=== PATIENT | male | born 1965 | race Hispanic/Latino ===

== ENCOUNTER 2018-09-05 15:50 | Inpatient (IN) | payer OTHER ==
[~2018-09-05] VITALS: Ht 185.4 cm; Wt 112.7 kg
[2018-09-05] MEDS ORDERED: ACETAMINOPHEN 325 MG TAB ONE (16:31)
--- OUTSIDE RECORDS SUMMARY | 2018-09-05 16:34 | XMS REPORT | Clinical Summary ---
Author Author [facility] [employer] [facility] [employer] Address Unknown Phone Unavailable Care Team Providers Care Assistant Pastry Chef Name Role Phone Asked, No Pcp PCP Unavailable Allergies No Known Allergies Medications End Date Status Medication Sig Dispensed Refills Start Date Active losartan-hydrochlorothiaz 0 pham (HYZAAR) 100-12.5 mg 8 per tablet Active lovastatin (MEVACOR) 40 0 MG tablet 8 Active glyBURIDE (DIABETA) 5 MG Take 5 mg by 0 tablet mouth 2 (two) times a day with meals. 04/21/2018 acetaminophen-codeine Take 1 tablet 30 tablet 0 (TYLENOL WITH CODEINE #3) by mouth 8 300-30 mg per tablet every 6 (six) hours as needed for moderate pain for up to 30 days. 04/22/2018 clopidogrel (PLAVIX) 75 Take 1 tablet 30 tablet 2 mg tablet (75 mg total) 8 by mouth daily for 30 days. 04/22/2018 nicotine (NICODERM CQ) 21 Place 1 patch 30 patch 0 mg/24 hr on the skin 8 daily for 30 days. 04/22/2018 amLODIPine (NORVASC) 10 Take 1 tablet 30 tablet 2 mg tablet (10 mg total) 8 by mouth daily for 30 days. Active Problems Problem Noted Date Peripheral vascular disease 03/10/2018 Overview: Added automatically from request for surgery [id number] Atherosclerosis of coquille artery of left lower extremity with intermittent 03/10/2018 claudication Overview: Added automatically from request for surgery [id number] Encounters Care Team Description Date Type Specialty Prateek Walker MD 03/21/[address] Surgery Event [address] Smiley MD LEFT ANGIOGRAM, ANGIOPLASTY, LEFT STENTING OF SFA, REMOVAL OF LYSIS CATHETER 03/21/[address] Smiley MD LEFT LOWER EXTREMITY ANGIOGram w/ lysis catheter insertion, balloon angioplasty of the left SFA 03/20/2018 Surgery General Surgery Ej Saleh MD 03/20/[address] Surgery Event Lane Smiley MD Tang, Hsiao Chiang, MD Peripheral vascular disease (Primary Dx); Atherosclerosis of coquille artery of left lower extremity with intermittent claudication; Peripheral vascular disorder 03/20/2018 [facility] General Internal Medicine - Encounter 03/22/2018 Lane Smiley MD 03/19/[address] Encounter [address] Smiley MD 03/19/2018 Pre-Admit Pre-Admission Testing Testing Appointment Kelby Mendez 03/19/2018 Orders Only Radiology Smitha Cuellar MA Atherosclerosis of coquille artery of left lower extremity with intermittent claudication (Primary Dx); Peripheral vascular disorder 03/10/2018 Prep for Cardiovascular Surgery Smitha Cuellar MA Atherosclerosis of coquille artery of left lower extremity with intermittent claudication (Primary Dx); Peripheral vascular disease 03/10/2018 Orders Only Cardiovascular after 09/04/2017 Family History Medical History Relation Name Comments Cancer Mother Heart disease Mother Hypertension Mother Relation Name Status Comments Father Mother Social History Date Tobacco Use Types Packs/Day Years Used Current Every Day Smoker Cigarettes 1.5 30 Smokeless Tobacco: Never Used Tobacco Cessation: Ready to Quit: No; Counseling Given: Yes Alcohol Use Drinks/Week oz/Week Comments No Sex Assigned at Date Recorded Not on file Industry Job Start Date Occupation Not on file Not on file Not on file Travel End Travel History Travel Start No recent travel history available. Last Filed Vital Signs Time Taken Vital Sign Reading 03/22/2018 8:07 AM CDT Blood Pressure 156/88 03/22/2018 8:07 AM CDT Pulse 60 03/22/2018 8:07 AM CDT Temperature 37.1 C (98.7 F) 03/22/2018 8:07 AM CDT Respiratory Rate 21 03/22/2018 8:07 AM CDT Oxygen Saturation 95% - Inhaled Oxygen - Concentration 03/20/2018 11:25 AM CDT Weight 111 kg (244 lb 6.4 oz) 03/20/2018 11:25 AM CDT Height 180.3 cm (5' 11") 03/20/2018 11:25 AM CDT Body Mass Index 34.09 Plan of Treatment Health Maintenance Due Date Last Done Comments COLON CANCER SCREENING 2016 SHINGLES VACCINES (#1) 2016 INFLUENZA VACCINE 01/29/2018 Implants Device Identifier Shelf Expiration Date Model / Serial / Lot Implanted Type Area Manufactur er 01/29/2020 [id number] / / [id number] Device Vasclr Clsr Baln Cath 10ml Cardiovasc Right: Groin CARDINAL Lkng Syr 6fr 7fr Mynxgrip - [facility] [id number] Implants Implanted: Qty: 1 on 03/21/[address] Smiley MD 06/18/2019 [id number] / / [id number] Stent Zil[employer] Eluted 6fr 6 X Surgical Left: Leg COOK 120mm .035in - [id number] Stents PERIPHERAL Implanted: Qty: 1 on 03/21/[address] Correa MD ON 04/10/2019 [id number] / / [id number] Stent [employer] Eluted 6fr 7 X Surgical Left: Leg COOK 120mm .035in - [id number] Stents PERIPHERAL Implanted: Qty: 1 on 03/21/[address] Correa MD ON 04/10/2019 [id number] / / [id number] Stent [employer] Eluted 6fr 7 X Surgical Left: Leg COOK 120mm .035in - [id number] Stents PERIPHERAL Implanted: Qty: 1 on 03/21/[address] Correa MD ON 05/13/2019 [id number] / / [id number] Stent [employer] Eluted 6fr 7 X Surgical Left: Leg COOK 120mm .035in - [id number] Stents PERIPHERAL Implanted: Qty: 1 on 03/21/[address] Correa MD ON Procedures Comments Procedure Name Priority Date/Time Associated Diagnosis POC GLUCOSE Routine 03/22/2018 11:29 AM CDT POC GLUCOSE Routine 03/22/2018 6:18 AM CDT ESTIMATED GFR Timed 03/22/2018 5:17 AM CDT PHOSPHORUS LEVEL Timed 03/22/2018 5:17 AM CDT MAGNESIUM LEVEL Timed 03/22/2018 5:17 AM CDT HC COMPLETE BLD COUNT Timed 03/22/2018 W/AUTO DIFF 5:17 AM CDT BASIC METABOLIC PANEL Timed 03/22/2018 5:17 AM CDT HEMOGLOBIN A1C Routine 03/22/2018 5:17 AM CDT POC GLUCOSE Routine 03/21/2018 8:20 PM CDT POC GLUCOSE Routine 03/21/2018 4:40 PM CDT CV HYBRID OR FLUOROSCOPY STAT 03/21/2018 12:54 PM CDT POC GLUCOSE Routine 03/21/2018 11:21 AM CDT POC GLUCOSE Routine 03/21/2018 7:29 AM CDT PHOSPHORUS LEVEL Timed 03/21/2018 4:47 AM CDT MAGNESIUM LEVEL Timed 03/21/2018 4:47 AM CDT FIBRINOGEN Timed 03/21/2018 4:47 AM CDT ESTIMATED GFR Timed 03/21/2018 4:47 AM CDT PARTIAL THROMBOPLASTIN Timed 03/21/2018 TIME (PTT) 4:47 AM CDT BASIC METABOLIC PANEL Timed 03/21/2018 4:47 AM CDT HC COMPLETE BLD COUNT Timed 03/21/2018 W/AUTO DIFF 4:47 AM CDT URINALYSIS SCREEN AND Routine 03/20/2018 MICROSCOPY, WITH REFLEX 10:20 PM CDT TO CULTURE SODIUM LEVEL, URINE, Routine 03/20/2018 RANDOM 10:20 PM CDT POTASSIUM, URINE, RANDOM Routine 03/20/2018 10:20 PM CDT PROTEIN, URINE, RANDOM Routine 03/20/2018 10:20 PM CDT CREATININE LEVEL, URINE, Routine 03/20/2018 RANDOM 10:20 PM CDT GRAM STAIN Routine 03/20/2018 10:20 PM CDT URINE CULTURE Routine 03/20/2018 10:20 PM CDT POC GLUCOSE Routine 03/20/2018 8:26 PM CDT ESTIMATED GFR Timed 03/20/2018 8:10 PM CDT BASIC METABOLIC PANEL Timed 03/20/2018 8:10 PM CDT FIBRINOGEN Timed 03/20/2018 8:10 PM CDT VITAMIN D 25 HYDROXY Routine 03/20/2018 LEVEL 4:54 PM CDT PARATHYROID HORMONE Routine 03/20/2018 4:54 PM CDT URIC ACID LEVEL Routine 03/20/2018 4:54 PM CDT POC GLUCOSE Routine 03/20/2018 2:53 PM CDT ANESTHESIA INTUBATION Routine 03/20/2018 12:53 PM CDT Procedure Note - Juma Valderrama MD - 03/20/2018 12:53 PM CDT Airway Performed by: JUMA VALDERRAMA Authorized by: JUMA VALDERRAMA Final Airway Type: Mask PREPARE CRYOPRECIPITATE Timed 03/20/2018 12:21 PM CDT TYPE AND SCREEN Timed 03/20/2018 12:21 PM CDT FIBRINOGEN Timed 03/20/2018 12:21 PM CDT POC GLUCOSE Routine 03/20/2018 12:14 PM CDT CV HYBRID OR FLUOROSCOPY Routine 03/20/2018 11:57 AM CDT XR CHEST 2 VW Routine 03/19/2018 4:19 PM CDT ECG 12-LEAD Routine 03/19/2018 3:49 PM CDT ESTIMATED GFR Routine 03/19/2018 3:30 PM CDT PROTHROMBIN TIME WITH INR Routine 03/19/2018 3:30 PM CDT PARTIAL THROMBOPLASTIN Routine 03/19/2018 TIME (PTT) 3:30 PM CDT HC COMPLETE BLD COUNT Routine 03/19/2018 W/AUTO DIFF 3:30 PM CDT BASIC METABOLIC PANEL Routine 03/19/2018 3:30 PM CDT after 09/04/2017 Results * POC glucose (03/22/2018 11:29 AM CDT) Only the most recent of 9 results within the time period is included. POC glucose 208 (H) 65 - 100 mg/dL [facility] DEPARTMENT OF Comment: PATHOLOGY AND Meter ID: [id number] [facility] Associate Creative Director: Christie Carrera Performing Organization Address City/[facility] Centercode Phone Number [facility] DEPARTMENT OF [address] [place] [address] PATHOLOGY AND [facility] * Estimated GFR (03/22/2018 5:17 AM CDT) Only the most recent of 4 results within the time period is included. Estimated GFR 49 (A) mL/min/1.73 m2 [facility] DEPARTMENT OF Comment: PATHOLOGY AND [employer] GENOMIC MEDICINE rpretation G1 >=90 Normal or high G2 60-89Mildly decreased [id number] Mildly to moderately decreased [id number] Moderately to severely decreased G4 15-29Severely decreased G5 <15Kidney failure The eGFR was calculated using the Chronic Kidney Disease Epidemiology Collaboration (CKD-EPI) equation. Interpretation is based on recommendations of the National Kidney Foundation-Kidney Disease Outcomes Quality Initiative (NKF-KDOQI) published in 2014. Specimen Plasma specimen Performing Organization Address City/State/Zipcode Phone Number [facility] DEPARTMENT OF [address] [place] [address] PATHOLOGY AND GENOMIC MEDICINE * CBC with platelet and differential (03/22/2018 5:17 AM CDT) Only the most recent of 3 results within the time period is included. WBC 10.2 4.2 - 11.0 k/uL [facility] DEPARTMENT OF PATHOLOGY AND GENOMIC MEDICINE RBC 5.20 4.04 - 5.86 m/uL [facility] DEPARTMENT OF PATHOLOGY AND GENOMIC MEDICINE HGB 14.8 13.0 - 17.3 g/dL [facility] DEPARTMENT OF PATHOLOGY AND GENOMIC MEDICINE HCT 48.3 (H) 34.0 - 45.0 % [facility] DEPARTMENT OF PATHOLOGY AND GENOMIC MEDICINE MCV 92.9 80.0 - 98.0 fL [facility] DEPARTMENT OF PATHOLOGY AND GENOMIC MEDICINE MCH 28.5 27.0 - 34.0 pg [facility] DEPARTMENT OF PATHOLOGY AND GENOMIC MEDICINE MCHC 30.6 (L) 31.5 - 36.5 g/dL [facility] DEPARTMENT OF PATHOLOGY AND GENOMIC MEDICINE RDW - SD 47.2 37.0 - 51.0 fL [facility] OF PATHOLOGY AND GENOMIC MEDICINE MPV 11.7 (H) 7.4 - 10.4 fL [facility] DEPARTMENT OF PATHOLOGY AND GENOMIC MEDICINE Platelet count 155 150 - 400 k/uL [facility] DEPARTMENT OF PATHOLOGY AND GENOMIC MEDICINE Nucleated RBC 0.00 /100 WBC [facility] DEPARTMENT OF PATHOLOGY AND GENOMIC MEDICINE Neutrophils 80.1 (H) 36.0 - 66.0 % [facility] DEPARTMENT OF PATHOLOGY AND GENOMIC MEDICINE Lymphocytes 8.8 (L) 24.0 - 44.0 % [facility] DEPARTMENT OF PATHOLOGY AND GENOMIC MEDICINE Monocytes 7.8 (H) 0.0 - 6.0 % [facility] DEPARTMENT OF PATHOLOGY AND GENOMIC MEDICINE Eosinophils 2.0 0.0 - 6.0 % [facility] DEPARTMENT OF PATHOLOGY AND GENOMIC MEDICINE Basophils 0.5 0.0 - 1.2 % [facility] DEPARTMENT PATHOLOGY AND GENOMIC MEDICINE Immature granulocytes 0.8 0.0 - 1.0 % [facility] DEPARTMENT PATHOLOGY AND GENOMIC MEDICINE Specimen Blood Performing Organization Address City/[facility]/Zipcode Phone Number [facility] [address] [place] [address] PATHOLOGY AND GENOMIC MEDICINE * Phosphorus level (03/22/2018 5:17 AM CDT) Only the most recent of 2 results within the time period is included. Phosphorus 2.3 (L) 2.4 - 4.5 mg/dL [facility] DEPARTMENT PATHOLOGY AND GENOMIC MEDICINE Specimen Plasma specimen Performing Organization Address City/[facility]/Zipcode Phone Number [facility] [address] [place] [phone] PATHOLOGY AND GENOMIC MEDICINE * Magnesium level (03/22/2018 5:17 AM CDT) Only the most recent of 2 results within the time period is included. Magnesium 1.80 1.60 - 2.60 mg/dL [facility] DEPARTMENT OF PATHOLOGY AND GENOMIC MEDICINE Specimen Plasma specimen Performing Organization Address City/[facility] Centercode Phone Number [address] [place] [address] PATHOLOGY AND GENOMIC MEDICINE * Hemoglobin A1c (03/22/2018 5:17 AM CDT) Hemoglobin A1C 8.9 (H) 4.0 - 6.0 % [facility] DEPARTMENT OF Comment: PATHOLOGY AND GENOMIC MEDICINE Less than 6% - Goal of therapy for Type II Diabetes Less than 7%-Goal of therapy for Type I Diabetes Less than 8%-Accepta ble control for Type I or Type II Diabetes Greater than 8%-Unacceptabl e control; action indicated. ([id number]) Specimen Blood Performing Organization Address City/[facility] Centercode Phone Number [address] [place] [address] PATHOLOGY AND GENOMIC MEDICINE * Basic metabolic panel (03/22/2018 5:17 AM CDT) Only the most recent of 4 results within the time period is included. Sodium 139 135 - 150 mEq/L [facility] DEPARTMENT OF PATHOLOGY AND GENOMIC MEDICINE Potassium 4.3 3.5 - 5.0 mEq/L [facility] DEPARTMENT OF PATHOLOGY AND GENOMIC MEDICINE Chloride 101 98 - 112 mEq/L [facility] DEPARTMENT OF PATHOLOGY AND GENOMIC MEDICINE CO2 29 24 - 31 mmol/L [facility] DEPARTMENT OF PATHOLOGY AND GENOMIC MEDICINE Anion gap 9@ANIO 7 - 15 mEq/L [facility] DEPARTMENT OF PATHOLOGY AND GENOMIC MEDICINE BUN 20 (H) 7 - 18 mg/dL [facility] DEPARTMENT OF PATHOLOGY AND GENOMIC MEDICINE Creatinine 1.60 (H) 0.70 - 1.20 mg/dL [facility] DEPARTMENT OF PATHOLOGY AND GENOMIC MEDICINE Glucose 164 (H) 65 - 100 mg/dL [facility] DEPARTMENT OF PATHOLOGY AND GENOMIC MEDICINE Calcium 8.7 8.3 - 10.2 mg/dL [facility] DEPARTMENT OF PATHOLOGY AND GENOMIC MEDICINE Specimen Plasma specimen Performing Organization Address [facility] Centercode [place] [address] PATHOLOGY AND GENOMIC MEDICINE * Hybrid or fluoroscopy (03/21/2018 12:54 PM CDT) Narrative Performed At See operative report for the same day * Partial thromboplastin time, activated (03/21/2018 4:47 AM CDT) Only the most recent of 2 results within the time period is included. PTT 47.5 (H) 23.0 - 36.0 sec [facility] DEPARTMENT OF Comment: PATHOLOGY AND PTT therapeutic range for [facility] unfractionated heparin is 61.0-112.0 seconds which corresponds to Anti-Xa 0.3-0.7 U/ml. Note:Change in Panic Value The PTT Panic Value is changing from 110 sec. to 100 sec. due to new instrumentation and reagents. Correlation studies have been performed to validate this result. Specimen Blood Performing Organization Address [facility] Centercode Phone Number [address] [place] [address] PATHOLOGY AND GENOMIC MEDICINE * Fibrinogen (03/21/2018 4:47 AM CDT) Only the most recent of 3 results within the time period is included. Fibrinogen 216Comment: [id number] fibr 200 - 450 mg/dL [facility] DEPARTMENT OF PATHOLOGY AND GENOMIC MEDICINE Specimen Blood Performing Organization Address City/[facility] Centercode [place] [address] PATHOLOGY AND GENOMIC MEDICINE * Urinalysis screen and microscopy, with reflex to culture (03/20/2018 10:20 PM CDT) Specimen site Clean catch [facility] DEPARTMENT OF PATHOLOGY AND GENOMIC MEDICINE Color, UA Yellow [facility] DEPARTMENT OF PATHOLOGY AND GENOMIC MEDICINE Appearance, UA Clear [facility] DEPARTMENT OF PATHOLOGY AND GENOMIC MEDICINE Specific gravity, UA 1.018 1.001 - 1.035 [facility] DEPARTMENT OF PATHOLOGY AND GENOMIC MEDICINE pH, UA 5.0 5.0 - 8.5 [facility] DEPARTMENT OF PATHOLOGY AND GENOMIC MEDICINE Protein, UA 3+ (A) Negative [facility] DEPARTMENT OF PATHOLOGY AND GENOMIC MEDICINE Glucose, UA 3+ (A) Negative [facility] DEPARTMENT OF PATHOLOGY AND GENOMIC MEDICINE Ketones, UA Negative Negative [facility] DEPARTMENT OF PATHOLOGY AND GENOMIC MEDICINE Bilirubin, UA Negative Negative [facility] DEPARTMENT OF PATHOLOGY AND GENOMIC MEDICINE Blood, UA Large (A) Negative [facility] DEPARTMENT OF PATHOLOGY AND GENOMIC MEDICINE Nitrite, UA Negative Negative [facility] DEPARTMENT OF PATHOLOGY AND GENOMIC MEDICINE Urobilinogen, UA Negative <2.0 [facility] DEPARTMENT OF PATHOLOGY AND GENOMIC MEDICINE Leukocyte esterase, UA Negative Negative [facility] DEPARTMENT OF PATHOLOGY AND GENOMIC MEDICINE WBC, UA 4 (H) 0 - 1 /HPF [facility] DEPARTMENT OF PATHOLOGY AND GENOMIC MEDICINE RBC, UA >200 (H) 0 - 5 /HPF [facility] DEPARTMENT OF PATHOLOGY AND GENOMIC MEDICINE Bacteria, UA Trace None seen [facility] DEPARTMENT OF PATHOLOGY AND GENOMIC MEDICINE Yeast, UA None seen [facility] DEPARTMENT OF PATHOLOGY AND GENOMIC MEDICINE Yeast with pseudohyphae, None seen [facility] DEPARTMENT OF UA PATHOLOGY AND GENOMIC MEDICINE Hyaline casts, UA 1 /LPF [facility] DEPARTMENT OF PATHOLOGY AND GENOMIC MEDICINE Specimen Urine Performing Organization Address [facility] Centercode [place] [address] PATHOLOGY AND GENOMIC MEDICINE * Sodium level, urine, random (03/20/2018 10:20 PM CDT) Sodium, urine, random 99 mEQ/L [facility] DEPARTMENT OF PATHOLOGY AND GENOMIC MEDICINE Specimen Urine - Urine, clean catch Performing Organization Address [facility] [place] [address] PATHOLOGY AND GENOMIC MEDICINE * Protein, urine, random (03/20/2018 10:20 PM CDT) Protein, urine random >209 mg/dL [facility] DEPARTMENT OF PATHOLOGY AND GENOMIC MEDICINE Specimen Urine - Urine, clean catch Performing Organization Address City/[facility] Centercode [place] [address] PATHOLOGY AND GENOMIC MEDICINE * Potassium, urine, random (03/20/2018 10:20 PM CDT) Potassium, urine, random 40 mEq/L [facility] DEPARTMENT OF PATHOLOGY AND GENOMIC MEDICINE Specimen Urine - Urine, clean catch Performing Organization Address [facility] Centercode [place] [address] PATHOLOGY AND GENOMIC MEDICINE * Creatinine level, urine, random (03/20/2018 10:20 PM CDT) Creatinine, urine, random 94 mg/dL [facility] DEPARTMENT OF PATHOLOGY AND GENOMIC MEDICINE Specimen Urine - Urine, clean catch Performing Organization Address City/[facility]ercode Phone Number [facility] DEPARTMENT OF [address] [place] [address] PATHOLOGY AND GENOMIC MEDICINE * Gram stain (03/20/2018 10:20 PM CDT) Gram stain result No WBC's or organisms seen. [facility] DEPARTMENT OF Comment: PATHOLOGY AND Specimen Information GENOMIC MEDICINE Specimen Source: Urine Specimen Site: Clean catch Specimen Urine Performing Organization Address [facility] Centercode Phone Number [facility] DEPARTMENT OF [address] [place] [phone] PATHOLOGY AND GENOMIC MEDICINE * Urine culture (03/20/2018 10:20 PM CDT) Urine culture isolate No growth after 2 days. [facility] DEPARTMENT OF Comment: PATHOLOGY AND Specimen Information GENOMIC MEDICINE Specimen Source: Urine Specimen Site: Clean catch Specimen Urine Performing Organization Address [facility] Centercode Phone Number [facility] DEPARTMENT OF [address] [place] [phone] PATHOLOGY AND GENOMIC MEDICINE * Vitamin D 25 hydroxy level (03/20/2018 4:54 PM CDT) Vitamin D, 25-hydroxy 6.4 (L) 30.0 - 150.0 ng/mL [facility] DEPARTMENT OF Comment: PATHOLOGY AND This assay reports the sum of GENOMIC MEDICINE 25-hydroxy vitamin D3 and 25-hydroxy vitamin D2. Reference range: 0-17 years: Deficiency: less than 20ng/mL Optimum level: greater than or equal to 20 ng/mL. 18 years and older: Deficiency: less than 20ng/mL Insufficiency: 20-29 ng/mL Optimum Level: 30-80 ng/mL The assay reportable range is 3.4155.9 ng/mL. Levels higher than 150 ng/mL may be associated with toxicity. If toxicity is clinically suspected and the reported result is >155.9 ng/mL,contact lab for alternative methods to obtain a definitivelevel. If separate quantitation of 25-hydroxy vitamin D3 and 25-hydroxy vitamin D2 is needed, please contact lab for alternative methods. Specimen Blood Performing Organization Address [facility]/Zipcode Phone Number [facility] DEPARTMENT OF [address] [place] [address] PATHOLOGY AND GENOMIC MEDICINE * Uric acid level (03/20/2018 4:54 PM CDT) Uric acid 9.5 (H) 3.4 - 7.0 mg/dL [facility] DEPARTMENT OF PATHOLOGY AND GENOMIC MEDICINE Specimen Plasma specimen Performing Organization Address City/State/Zipcode Phone Number [facility] DEPARTMENT OF [address] [place] [address] PATHOLOGY AND GENOMIC MEDICINE * Parathyroid hormone (03/20/2018 4:54 PM CDT) PTH 128 (H) 15 - 65 pg/mL [facility] DEPARTMENT OF PATHOLOGY AND GENOMIC MEDICINE Specimen Blood Performing Organization Address City/State/Zipcode Phone Number [facility] DEPARTMENT OF [address] [place] [address] PATHOLOGY AND GENOMIC MEDICINE * Type and screen (03/20/2018 12:21 PM CDT) ABO grouping A [facility] DEPARTMENT OF PATHOLOGY AND GENOMIC MEDICINE Rh type POS [facility] DEPARTMENT OF PATHOLOGY AND GENOMIC MEDICINE Antibody screen (gel) NEG [facility] DEPARTMENT OF PATHOLOGY AND GENOMIC MEDICINE Specimen Blood Performing Organization Address City/[facility] Centercode Phone Number [facility] [address] [place] [address] PATHOLOGY AND GENOMIC MEDICINE * Hybrid or fluoroscopy (03/20/2018 11:57 AM CDT) Narrative Performed At See operative report for the same day * XR Chest 2 Vw (03/19/2018 4:19 PM CDT) Narrative Performed At EXAMINATION:XR CHEST 2 VW RADIANT CLINICAL HISTORY:PRE-OP TESTING XR CHEST 2 VWimages are submitted COMPARISON:NONE FINDINGS: Lines/tubes:None. Heart and mediastinum:Tortuous atherosclerotic thoracic aorta. Otherwise, unremarkable. Lungs:The lungs are well inflated and clear. There is no evidence of pneumonia or pulmonary edema. Pleura:There is no pleural effusion or pneumothorax. Bones:unremarkable. IMPRESSION: Negative for acute cardiopulmonary disease. [facility]-[id number] Procedure Note Hm Interface, Radiology Results Incoming - 03/19/2018 4:44 PM CDT EXAMINATION: XR CHEST 2 VW CLINICAL HISTORY: PRE-OP TESTING XR CHEST 2 VW images are submitted COMPARISON: NONE FINDINGS: Lines/tubes: None. Heart and mediastinum: Tortuous atherosclerotic thoracic aorta. Otherwise, unremarkable. Lungs: The lungs are well inflated and clear. There is no evidence of pneumonia or pulmonary edema. Pleura: There is no pleural effusion or pneumothorax. Bones: unremarkable. IMPRESSION: Negative for acute cardiopulmonary disease. [facility]-[id number] Performing Organization Address [facility]/Zipcode Phone Number [facility] [address] [place] [address] * ECG 12 lead (03/19/2018 3:49 PM CDT) Ventricular rate 104 [facility] Atrial rate 104 [facility] NV interval 180 [facility] QRSD interval 126 [facility] QT interval 350 [facility] QTC interval 460 [facility] QRS axis 1 -61 [facility] T wave axis 5 [facility] EKG impression Sinus tachycardia-Left HM MUSE anterior fascicular block-Right bundle branch block-^^^ Bifascicular block ^^^-Inferior infarct , age undetermined-Abnormal ECG-No previous ECGs available- Performing Organization Address [facility]ohi Phone Number [facility] MUSE [address] [place] [address] * Prothrombin time with INR (03/19/2018 3:30 PM CDT) Prothrombin time 12.6 12.0 - 15.0 sec [facility] DEPARTMENT OF PATHOLOGY AND GENOMIC MEDICINE INR 0.93 0.92 - 1.12 [facility] DEPARTMENT OF Comment: PATHOLOGY AND For patients on anticoagulant GENOMIC MEDICINE therapy, reference ranges below: Indication: INR Value Treatment of Venous Thrombosis, 2.0-3.0 pulmonary emboli, or prophylaxis of a venous thrombosis, or systemic emboli. High dose, high risk patients 3.0-4.5 with mechanical valves. NOTE:INR values over 3.0 are sometimes associated with gastrointestinal hemorrhage, especially values over 4.0. Specimen Blood Performing Organization Address City/[facility]ode Phone Number [facility] DEPARTMENT OF [address] [place] [address] PATHOLOGY AND GENOMIC MEDICINE after 09/04/2017 Insurance Payer Benefit Subscriber ID Type Phone Address Plan / Group LLO[employer]D [employer] OPEN xxxxxxxxxxx HMO ACCESS/NET WORK Advance Directives Patient has advance care planning documents on file. For more information, fany plata contact: Jose David Carpenter [address] [place] [address]
[2018-09-05] MEDS ORDERED: ACETAMINOPHEN 325 MG TAB PO ONE (16:45)
[2018-09-05] MEDS ORDERED: PIPER-TAZ 3.375 GM 50 ML IV ONE (18:30)
[2018-09-05 18:46] LABS: BASOPHILS # (AUTO) 0.1 (0.0-0.1); BASOPHILS % 0.5 % (0.0-1.0); EOSINOPHILS # (AUTO) 0.2 (0.0-0.4); EOSINOPHILS % 1.2 % (0.0-6.0); HEMATOCRIT 52.5 % (38.2-49.6); HEMOGLOBIN 16.5 g/dL (14.0-18.0); LYMPHOCYTES % 8.2 % (18.0-39.1); MEAN CORPUSCULAR HEMOGLOBIN 28.1 pg (28-32); MEAN CORPUSCULAR HGB CONC 31.4 g/dL (31-35); MEAN CORPUSCULAR VOLUME 89.3 fL (81-99); MONOCYTES # (AUTO) 0.8 (0.2-0.8); MONOCYTES % 6.2 % (4.4-11.3); NEUTROPHILS # (AUTO) 10.5 (2.1-6.9); NEUTROPHILS % 82.9 % (38.7-80.0); PLATELET COUNT 292 x10e3/uL (140-360); RED BLOOD COUNT 5.88 x10e6/uL (4.3-5.7); RED CELL DISTRIBUTION WIDTH 13.7 % (11.7-14.4)
[2018-09-05] MEDS ORDERED: VANCOMYCIN 1GM/NS 250 ML 250 ML IV ONE ×2 (19:00→23:00)
--- NOTE | 2018-09-05 19:04 | NUR ---
PT ADVISED CAN NOT SMOKE IN WAITING ROOM OR AT FACILITY AT ALL; PT STATED, "WELL ITS AN E CIG." PT ADVISED IT IS ILLEGAL TO SMOKE IN THE FACILITY, PT STATED, "WELL CALL THE TRIMMING PRESS OPERATOR THEN BECAUSE IM USING IT." PT THEN CALLED THIS RN "A BITCH" FOR NOT ALLOWING TO SMOKE IN WAITING ROOM; PT INSTRUCTED TO NOT CURSE AT STAFF, TO NOT CALL STAFF "A BITCH" AND THAT HE (PT) WAS JUST BEING INFORMED OF HOSPITAL POLICY. PT STATED, "FINE I WON'T FUCKING SMOKE IT THEN."
[2018-09-05 19:06] LABS: ALBUMIN/GLOBULIN RATIO 0.6 (0.8-2.0); ANION GAP 14.1 mmol/L (8-16); CALCIUM 9.8 mg/dL (8.4-10.2); CREATININE, SERUM 2.62 mg/dL (0.72-1.25); POTASSIUM 4.1 mmol/L (3.5-5.1)
[2018-09-05] MEDS ORDERED: ONDANSETRON HCL INJ 2MG/ML 2ML 2 MG/ML VIAL IV PRN (19:15)
[2018-09-05] MEDS ORDERED: MORPHINE SULFATE 2 MG/ML SYR 1ML IV PRN (19:15)
--- OUTSIDE RECORDS SUMMARY | 2018-09-05 19:30 | XMS REPORT | Clinical Summary ---
Author Author [employer] [facility] [employer] Address Unknown Phone Unavailable Care Team Providers Care Traffic Control Flagger Name Role Phone Asked, No Pcp PCP [...] Overview: Added automatically from request for surgery [id number] Atherosclerosis of citizen potawatom[place] artery of left lower extremity with intermittent 03/10/2018 claudication Overview: Added automatically from request for surgery [id number] Encounters Care Team Description Date Type Specialty [...] Peripheral vascular disease (Primary Dx); Atherosclerosis of citizen [place] artery of left lower extremity with intermittent claudication; Peripheral vascular disorder 03/20/2018 [facility] General Internal Medicine - Encounter 03/22/2018 Lane Smiley MD 03/19/2018 Hospital Radiology Encounter Lane Smiley MD 03/19/2018 Pre-Admit Pre-Admission Testing Testing Appointment Kelby Mendez 03/19/2018 Orders Only Radiology Smitha Cuellar MA Atherosclerosis of citizen potaw[place] artery of left lower extremity with intermittent claudication (Primary Dx); Peripheral vascular disorder 03/10/2018 Prep for Cardiovascular Surgery Smitha Cuellar MA Atherosclerosis of citizen potaw[place] artery of left lower extremity with intermittent [...] Lot Implanted Type Area Manufactur er 01/29/2020 [id number] / / [id number] Device Vasclr Clsr Baln Cath 10ml Cardiovasc Right: Groin CARDINAL Lkng Syr 6fr 7fr Mynxgrip - [facility] [id number] Implants Implanted: Qty: 1 on 03/21/[address] Smiley MD 06/18/2019 [id number] / / [id number] Stent [employer] Eluted 6fr 6 X Surgical Left: Leg COOK 120mm .035in - [id number] Stents PERIPHERAL Implanted: Qty: 1 on 03/21/[address] Correa MD ON 04/10/2019 [id number] / / [id number] Stent [employer] Eluted 6fr 7 X Surgical Left: Leg COOK 120mm .035in - [id number] Stents PERIPHERAL Implanted: Qty: 1 on 03/21/[address] Correa MD ON 04/10/2019 [id number] / / [id number] Stent [employer] Eluted 6fr 7 X Surgical Left: Leg COOK 120mm .035in - [id number] Stents PERIPHERAL Implanted: Qty: 1 on 03/21/[address] Correa MD ON 05/13/2019 [id number] / / [id number] Stent [employer] Eluted 6fr 7 X Surgical Left: Leg COOK 120mm .035in - [id number] Stents PERIPHERAL Implanted: Qty: 1 on 03/21/2018 [...] glucose 208 (H) 65 - 100 mg/dL [facility] OF Comment: PATHOLOGY AND Meter ID: [id number] MetaCDN MEDICINE Stick Roller: Christie Carrera Performing Organization Address City/[facility]ercode Phone Number [facility] DEPARTMENT OF [address] [place] [address] PATHOLOGY AND MetaCDN MEDICINE * Estimated GFR (03/22/2018 5:17 AM CDT) Only the most recent of 4 results within the time period is included. Estimated GFR 49 (A) mL/min/1.73 m2 [facility] OF Comment: PATHOLOGY AND CatergoryUnitsInte GENOMIC MEDICINE rpretation G1 >=90 Normal or high G2 60-89Mildly decreased [id number] Mildly to moderately decreased [id number] Moderately to severely decreased G4 15-29Severely decreased G5 <15Kidney failure The eGFR was calculated using the Chronic Kidney Disease Epidemiology Collaboration (CKD-EPI) equation. Interpretation is based on recommendations of the National Kidney Foundation-Kidney Disease Outcomes Quality Initiative (NKF-KDOQI) published in 2014. Specimen Plasma specimen Performing Organization Address City/State/Zipcode Phone Number [facility] OF [address] [place] [address] PATHOLOGY AND GENOMIC MEDICINE * CBC with platelet and differential (03/22/2018 5:17 AM CDT) Only the most recent of 3 results within the time period is included. WBC 10.2 4.2 - 11.0 k/uL [facility] OF PATHOLOGY AND GENOMIC MEDICINE RBC 5.20 4.04 - 5.86 m/uL [facility] OF PATHOLOGY AND GENOMIC MEDICINE HGB 14.8 13.0 - 17.3 g/dL [facility] OF PATHOLOGY AND GENOMIC MEDICINE HCT 48.3 (H) 34.0 - 45.0 % [facility] DE[facility]MENT OF PATHOLOGY AND GENOMIC MEDICINE MCV 92.9 80.0 - 98.0 fL [facility] OF PATHOLOGY AND GENOMIC MEDICINE MCH 28.5 27.0 - 34.0 pg [facility] DE[facility] OF PATHOLOGY AND GENOMIC MEDICINE MCHC 30.6 (L) 31.5 - 36.5 g/dL [facility] DE[facility] OF PATHOLOGY AND GENOMIC MEDICINE RDW - SD 47.2 37.0 - 51.0 fL [facility] OF PATHOLOGY AND GENOMIC MEDICINE MPV 11.7 (H) 7.4 - 10.4 fL [facility] DE[facility] OF PATHOLOGY AND GENOMIC MEDICINE Platelet count 155 150 - 400 k/uL [facility] OF PATHOLOGY AND GENOMIC MEDICINE Nucleated RBC 0.00 /100 WBC [facility] DE[facility] OF PATHOLOGY AND GENOMIC MEDICINE Neutrophils 80.1 (H) 36.0 - 66.0 % [facility] OF PATHOLOGY AND GENOMIC MEDICINE Lymphocytes 8.8 (L) 24.0 - 44.0 % [facility] OF PATHOLOGY AND GENOMIC MEDICINE Monocytes 7.8 (H) 0.0 - 6.0 % [facility] OF PATHOLOGY AND GENOMIC MEDICINE Eosinophils 2.0 0.0 - 6.0 % [facility] OF PATHOLOGY AND GENOMIC MEDICINE Basophils 0.5 0.0 - 1.2 % [facility] PATHOLOGY AND GENOMIC MEDICINE Immature granulocytes 0.8 0.0 - 1.0 % [facility] PATHOLOGY AND GENOMIC MEDICINE Specimen Blood Performing Organization Address City/[facility]/Zipcode Phone Number [facility] [address] [place] [address] PATHOLOGY AND GENOMIC MEDICINE * Phosphorus level (03/22/2018 5:17 AM CDT) Only the most recent of 2 results within the time period is included. Phosphorus 2.3 (L) 2.4 - 4.5 mg/dL [facility] PATHOLOGY AND GENOMIC MEDICINE Specimen Plasma specimen Performing Organization Address City/[facility]/Zipcode Phone Number [facility] [address] [place] [id number] PATHOLOGY AND GENOMIC MEDICINE * Magnesium level (03/22/2018 5:17 AM CDT) Only the most recent of 2 results within the time period is included. Magnesium 1.80 1.60 - 2.60 mg/dL [facility] OF PATHOLOGY AND GENOMIC MEDICINE Specimen Plasma specimen Performing Organization Address City/[facility] Centercode Phone Number [address] [place] [address] PATHOLOGY AND GENOMIC MEDICINE * Hemoglobin A1c (03/22/2018 5:17 AM CDT) Hemoglobin A1C 8.9 (H) 4.0 - 6.0 % [facility] OF Comment: PATHOLOGY AND GENOMIC MEDICINE Less than 6% - Goal of therapy for Type II Diabetes Less than 7%-Goal of therapy for Type I Diabetes Less than 8%-Accepta ble control for Type I or Type II Diabetes Greater than 8%-Unacceptabl e control; action indicated. ([id number]) Specimen Blood Performing Organization Address City/[facility] Centercode Phone Number [address] [place] [address] PATHOLOGY AND GENOMIC MEDICINE * Basic metabolic panel (03/22/2018 5:17 AM CDT) Only the most recent of 4 results within the time period is included. Sodium 139 135 - 150 mEq/L [facility] OF PATHOLOGY AND GENOMIC MEDICINE Potassium 4.3 3.5 - 5.0 mEq/L [facility] OF PATHOLOGY AND GENOMIC MEDICINE Chloride 101 98 - 112 mEq/L [facility] OF PATHOLOGY AND GENOMIC MEDICINE CO2 29 24 - 31 mmol/L [facility] OF PATHOLOGY AND GENOMIC MEDICINE Anion gap 9@ANIO 7 - 15 mEq/L [facility] OF PATHOLOGY AND GENOMIC MEDICINE BUN 20 (H) 7 - 18 mg/dL [facility] OF PATHOLOGY AND GENOMIC MEDICINE Creatinine 1.60 (H) 0.70 - 1.20 mg/dL [facility] OF PATHOLOGY AND GENOMIC MEDICINE Glucose 164 (H) 65 - 100 mg/dL [facility] OF PATHOLOGY AND GENOMIC MEDICINE Calcium 8.7 8.3 - 10.2 mg/dL [facility] OF PATHOLOGY AND GENOMIC MEDICINE Specimen Plasma specimen Performing Organization Address [facility] [place] [address] PATHOLOGY AND GENOMIC MEDICINE * Hybrid or fluoroscopy (03/21/2018 12:54 PM CDT) Narrative Performed At See operative report for the same day * Partial thromboplastin time, activated (03/21/2018 4:47 AM CDT) Only the most recent of 2 results within the time period is included. PTT 47.5 (H) 23.0 - 36.0 sec [facility] OF Comment: PATHOLOGY AND PTT therapeutic range for [facility] unfractionated heparin is 61.0-112.0 seconds which corresponds to Anti-Xa 0.3-0.7 U/ml. Note:Change in Panic Value The PTT Panic Value is changing from 110 sec. to 100 sec. due to new instrumentation and reagents. Correlation studies have been performed to validate this result. Specimen Blood Performing Organization Address [facility] Centercode Phone Number [address] [place] [address] PATHOLOGY AND GENOMIC MEDICINE * Fibrinogen (03/21/2018 4:47 AM CDT) Only the most recent of 3 results within the time period is included. Fibrinogen 216Comment: sepery=719 fibr 200 - 450 mg/dL [facility] OF PATHOLOGY AND GENOMIC MEDICINE Specimen Blood Performing Organization Address City/[facility] [place] [address] PATHOLOGY AND GENOMIC MEDICINE * Urinalysis screen and microscopy, with reflex to culture (03/20/2018 10:20 PM CDT) Specimen site Clean catch [facility] OF PATHOLOGY AND GENOMIC MEDICINE Color, UA Yellow [facility] OF PATHOLOGY AND GENOMIC MEDICINE Appearance, UA Clear [facility] OF PATHOLOGY AND GENOMIC MEDICINE Specific gravity, UA 1.018 1.001 - 1.035 [facility] OF PATHOLOGY AND GENOMIC MEDICINE pH, UA 5.0 5.0 - 8.5 [facility] OF PATHOLOGY AND GENOMIC MEDICINE Protein, UA 3+ (A) Negative [facility]MENT OF PATHOLOGY AND GENOMIC MEDICINE Glucose, UA 3+ (A) Negative [facility] OF PATHOLOGY AND GENOMIC MEDICINE Ketones, UA Negative Negative [facility]MENT OF PATHOLOGY AND GENOMIC MEDICINE Bilirubin, UA Negative Negative [facility] DE[facility]MENT OF PATHOLOGY AND GENOMIC MEDICINE Blood, UA Large (A) Negative [facility] OF PATHOLOGY AND GENOMIC MEDICINE Nitrite, UA Negative Negative [facility] OF PATHOLOGY AND GENOMIC MEDICINE Urobilinogen, UA Negative <2.0 [facility] OF PATHOLOGY AND GENOMIC MEDICINE Leukocyte esterase, UA Negative Negative [facility] OF PATHOLOGY AND GENOMIC MEDICINE WBC, UA 4 (H) 0 - 1 /HPF [facility] OF PATHOLOGY AND GENOMIC MEDICINE RBC, UA >200 (H) 0 - 5 /HPF [facility] OF PATHOLOGY AND GENOMIC MEDICINE Bacteria, UA Trace None seen [facility] OF PATHOLOGY AND GENOMIC MEDICINE Yeast, UA None seen [facility] DE[facility]MENT OF PATHOLOGY AND GENOMIC MEDICINE Yeast with pseudohyphae, None seen [facility] OF UA PATHOLOGY AND GENOMIC MEDICINE Hyaline casts, UA 1 /LPF [facility] DE[facility]MENT OF PATHOLOGY AND GENOMIC MEDICINE Specimen Urine Performing Organization Address [facility] [place] [address] PATHOLOGY AND GENOMIC MEDICINE * Sodium level, urine, random (03/20/2018 10:20 PM CDT) Sodium, urine, random 99 mEQ/L [facility] OF PATHOLOGY AND GENOMIC MEDICINE Specimen Urine - Urine, clean catch Performing Organization Address [facility] [place] [address] PATHOLOGY AND GENOMIC MEDICINE * Protein, urine, random (03/20/2018 10:20 PM CDT) Protein, urine random >209 mg/dL [facility] OF PATHOLOGY AND GENOMIC MEDICINE Specimen Urine - Urine, clean catch Performing Organization Address City/[facility] [place] [address] PATHOLOGY AND GENOMIC MEDICINE * Potassium, urine, random (03/20/2018 10:20 PM CDT) Potassium, urine, random 40 mEq/L [facility] OF PATHOLOGY AND GENOMIC MEDICINE Specimen Urine - Urine, clean catch Performing Organization Address [facility] [place] [address] PATHOLOGY AND GENOMIC MEDICINE * Creatinine level, urine, random (03/20/2018 10:20 PM CDT) Creatinine, urine, random 94 mg/dL [facility] OF PATHOLOGY AND GENOMIC MEDICINE Specimen Urine - Urine, clean catch Performing Organization Address City/[facility] Centercode Phone Number [facility] DE[facility]MENT OF [address] [place] [address] PATHOLOGY AND GENOMIC MEDICINE * Gram stain (03/20/2018 10:20 PM CDT) Gram stain result No WBC's or organisms seen. [facility] DEPARTMENT OF Comment: PATHOLOGY AND Specimen Information GENOMIC MEDICINE Specimen Source: Urine Specimen Site: Clean catch Specimen Urine Performing Organization Address [facility] Centercode Phone Number [facility] DEPARTMENT OF [address] [place] [address] PATHOLOGY AND GENOMIC MEDICINE * Urine culture (03/20/2018 10:20 PM CDT) Urine culture isolate No growth after 2 days. [facility] DEPARTMENT OF Comment: PATHOLOGY AND Specimen Information GENOMIC MEDICINE Specimen Source: Urine Specimen Site: Clean catch Specimen Urine Performing Organization Address [facility] Centercode Phone Number [facility] DEPARTMENT OF [address] [place] [address] PATHOLOGY AND GENOMIC MEDICINE * Vitamin D 25 hydroxy level (03/20/2018 4:54 PM CDT) Vitamin D, 25-hydroxy 6.4 (L) 30.0 - 150.0 ng/mL [facility] DEPARTMENT OF Comment: PATHOLOGY AND This [...] alternative methods. Specimen Blood Performing Organization Address [facility]/Zipcode Phone Number [facility] DEPARTMENT OF [address] [place] [address] PATHOLOGY AND GENOMIC MEDICINE * Uric acid level (03/20/2018 4:54 PM CDT) Uric acid 9.5 (H) 3.4 - 7.0 mg/dL [facility] OF PATHOLOGY AND GENOMIC MEDICINE Specimen Plasma specimen Performing Organization Address City/State/Zipcode Phone Number [facility] DE[facility]MENT OF [address] [place] [address] PATHOLOGY AND GENOMIC MEDICINE * Parathyroid hormone (03/20/2018 4:54 PM CDT) PTH 128 (H) 15 - 65 pg/mL [facility] DEPARTMENT OF PATHOLOGY AND GENOMIC MEDICINE Specimen Blood Performing Organization Address City/State/Zipcode Phone Number [facility] DEPARTMENT OF [address] [place] [address] PATHOLOGY AND GENOMIC MEDICINE * Type and screen (03/20/2018 12:21 PM CDT) ABO grouping A [facility] OF PATHOLOGY AND GENOMIC MEDICINE Rh type POS [facility] OF PATHOLOGY AND GENOMIC MEDICINE Antibody screen (gel) NEG [facility] OF PATHOLOGY AND GENOMIC MEDICINE Specimen Blood Performing Organization Address City/[facility] Centercode Phone Number [facility] OF [address] [place] [address] PATHOLOGY AND GENOMIC MEDICINE * Hybrid or [...] Bones:unremarkable. IMPRESSION: Negative for acute cardiopulmonary disease. [facility][id number] Procedure Note Hm Interface, Radiology Results Incoming [...] unremarkable. IMPRESSION: Negative for acute cardiopulmonary disease. [facility]-[id number] Performing Organization Address [facility]/Zipcode Phone Number [facility] [address] [place] [address] * ECG 12 lead (03/19/2018 3:49 PM CDT) Ventricular rate 104 [facility] Atrial rate 104 [facility] [place] interval 180 [facility] QRSD interval 126 [facility] QT interval 350 [facility] QTC interval 460 [facility] QRS axis 1 -61 [facility] T wave axis 5 [facility] EKG impression Sinus tachycardia-Left [facility] MUSE anterior fascicular block-Right bundle branch block-^^^ Bifascicular block ^^^-Inferior infarct , age undetermined-Abnormal ECG-No previous ECGs available- Performing Organization Address [facility] Centercoks Phone Number [facility] MUSE [address] [place] [address] * Prothrombin time with INR (03/19/2018 3:30 PM CDT) Prothrombin time 12.6 12.0 - 15.0 sec [facility] OF PATHOLOGY AND GENOMIC MEDICINE INR 0.93 0.92 - 1.12 [facility] OF Comment: PATHOLOGY AND For patients on anticoagulant GENOMIC MEDICINE therapy, reference ranges below: Indication: INR Value Treatment of Venous Thrombosis, 2.0-3.0 pulmonary emboli, or prophylaxis of a venous thrombosis, or systemic emboli. High dose, high risk patients 3.0-4.5 with mechanical valves. NOTE:INR values over 3.0 are sometimes associated with gastrointestinal hemorrhage, especially values over 4.0. Specimen Blood Performing Organization Address City/[facility] Centercode Phone Number [facility] DE[facility]MENT OF [address] [place] [address] PATHOLOGY AND GENOMIC MEDICINE after 09/04/2017 Insurance Payer Benefit Subscriber ID Type Phone Address Plan / Group [employer] OPEN xxxxxxxxxxx HMO ACCESS/NET WORK Advance Directives Patient has advance care planning documents on file. For more information, fany plata contact: Jose David Carpenter [address] [place] [address]
[2018-09-05 19:41] LABS: BILIRUBIN,URINE NEGATIVE (NEGATIVE); CLARITY,URINE SL CLOUDY (CLEAR); COLOR,URINE YELLOW (YELLOW); KETONES,URINE NEGATIVE (NEGATIVE); LEUKOCYTE ESTERASE ,URINE NEGATIVE (NEGATIVE); NITRITE,URINE NEGATIVE (NEGATIVE); PROTEIN,URINE DIPSTICK 2+ (NEGATIVE); URINE UROBILINOGEN 1 mg/dL (0.2 - 1)
[2018-09-05] MEDS ORDERED: MORPHINE SULFATE INJ 4 MG/ML INJ 1ML IV PRN (19:45)
[2018-09-05 19:52] LABS: AMORPHOUS SEDIMENT,URINE FEW (FEW); BACTERIA,URINE MANY /HPF; EPITHELIAL CELLS,URINE MODERATE /LPF; RBC,URINE 0-5 /HPF (0-5)
--- NOTE | 2018-09-05 22:00 | NUR ---
Patient arrived on floor via strecter. Patient denies pain or discomfort at this time.
[2018-09-06] VITALS (10 sets, daily range): BP systolic 126–157; BP diastolic 76–89
[2018-09-06] MEDS ORDERED: PIPERACILLIN/TAZO 2.25 GM 50 ML IV SCH ×2
[2018-09-06] MEDS: PIPERACILLIN/TAZO 2.25 GM 50 ML IV SCH ×3 (05:23→17:18)
[2018-09-06 06:10] LABS: BASOPHILS # (AUTO) 0.1 (0.0-0.1); BASOPHILS % 0.5 % (0.0-1.0); EOSINOPHILS # (AUTO) 0.2 (0.0-0.4); EOSINOPHILS % 2.1 % (0.0-6.0); HEMATOCRIT 50.3 % (38.2-49.6); HEMOGLOBIN 15.7 g/dL (14.0-18.0); LYMPHOCYTES # (AUTO) 1.1 (1.0-3.2); LYMPHOCYTES % 9.9 % (18.0-39.1); MEAN CORPUSCULAR HEMOGLOBIN 28.2 pg (28-32); MEAN CORPUSCULAR HGB CONC 31.2 g/dL (31-35); MEAN CORPUSCULAR VOLUME 90.3 fL (81-99); MONOCYTES # (AUTO) 0.8 (0.2-0.8); MONOCYTES % 7.4 % (4.4-11.3); NEUTROPHILS # (AUTO) 8.8 (2.1-6.9); NEUTROPHILS % 79.1 % (38.7-80.0); PLATELET COUNT 252 x10e3/uL (140-360); RED BLOOD COUNT 5.57 x10e6/uL (4.3-5.7); RED CELL DISTRIBUTION WIDTH 13.9 % (11.7-14.4)
--- NOTE | 2018-09-06 06:43 | NUR ---
Patient in bed with no c/o ar this time.
[2018-09-06 06:47] LABS: ALBUMIN 2.7 g/dL (3.5-5.0); ALBUMIN/GLOBULIN RATIO 0.6 (0.8-2.0); ANION GAP 13.2 mmol/L (8-16); CALCIUM 9.5 mg/dL (8.4-10.2); CREATININE, SERUM 2.41 mg/dL (0.72-1.25); POTASSIUM 4.2 mmol/L (3.5-5.1)
--- NOTE | 2018-09-06 07:00 | NUR ---
PATIENT IN STABLE CONDITION WITH NO S/S OF RESPIRATORY DISTRESS. NO PAIN VOICED. ABSCESS PRESENT TO PATIENT'S LEFT OUTER BUTTOCK. ABSCESS IS DANIEL AND WARM TO TOUCH. BED ALARM IS ON. CALL LIGHT IS WITHIN REACH, INSTRUCTED TO CALL FOR ASSISTANCE NEEDED.
--- NOTE | 2018-09-06 10:01 | NUR ---
CALL PLACED OUT TO DR. RIVERA REGARDING PATIENT'S NPO STATUS AND TO INQUIRE ON ANY PLAN SURGICAL PROCEDURE. PATIENT IS UPSET AND SCREAMING AT RN AND STATISTICS TEACHER ABOUT WHAT HIS CARE AND NOT SEEING A PHYSICIAN.
--- NOTE | 2018-09-06 10:05 | NUR ---
RECEIVED CALLBACK FROM DR. RIVERA- DR. RIVERA INFORMED OF PATIENT BEING UPSET. DR. RIVERA WILL ROUND THIS MORNING TO SEE PATIENT. WILL INFORM PATIENT.
--- NOTE | 2018-09-06 10:51 | NUR ---
Nutrition Screen Note RD Recommendation for Physician: Initiate a PO diet when medically feasible post procedure. Plan of Care: RD following, monitoring for adequacy and tolerance Nutrition reason for involvement: Nutrition Risk Trigger, Follow up - [facility] Primary Diagnose(s): Abscess Ht: 73in Wt:247lbs BMI:32.6 kg/m2 IBW:184lbs RD Assessment:(09/06/2017) Initial encounter with patient. Pt is ready to eat, however, is NPO due to a possible surgical procedure. Pt is stating he will leave AMA. Pt denies nausea, vomiting or diarrhea, nor has any difficulty chewing or swallowing. No wt changes reported by Pt. Current Diet: NPO Malnutrition Evaluation (09/06/2017) The patient does not meet criteria for a specified degree of malnutrition at this time. Will re-evaluate at follow-up as appropriate. Diet Education Needs Assessment: Diet education not indicated. Diet Adequacy: Not meeting calorie needs, Not meeting protein needs Tolerance: NPO Nutrition Care Level: Kush Plummer RD, LD, CNSC
[2018-09-06] MEDS ORDERED: DEXTROSE 50% SYRINGE 50 ML IV PRN (11:00)
--- NOTE | 2018-09-06 11:11 | NUR ---
SOCIAL WORK INITIAL ASSESSMENT Pulling Unit Floorhand to bedside to discuss plan of care with patient/family. CM/SW role and care transitions discussed. Anticipated discharge plan discussed along with duration of care. CM/SW discussed patients right to make decisions in care. CM/SW work hours given. 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 Name and number was also written on the patients whiteboard. Patient verbalized understanding of discussion. CM will follow-up with ongoing discharge and transition of care needs.
[2018-09-06] MEDS: INSULIN REGULAR, HUMAN 100 UNIT/1 ML 3ML VIAL SQ SCH ×3 (11:30→21:31)
[2018-09-06] MEDS: SODIUM CHLORIDE 0.9% 1000ML 1,000 ML IV SCH (12:11)
--- NOTE | 2018-09-06 14:15 | NUR ---
PATIENT REFUSED ASSISTANCE TO THE BATHROOM AND REFUSED TO HAVE THE BED ALARM APPLIED.
--- NOTE | 2018-09-06 14:36 | History and Physical ---
REASON FOR ADMISSION: Mr. Mariscal is a complex 53-year-old diabetic, who presents to the emergency room directly from Dr. Narvaez's office for complaints of "a boil on my bottom." HISTORY OF PRESENT ILLNESS: The patient is very brief and coarse in his descriptions, but reports he thinks he has had some low-grade fevers and pain in his left hip region. The patient reports he had a similar abscess drained in the office by Dr. Narvaez some months ago. PAST MEDICAL HISTORY: Significant for type 2 adult-onset diabetes and hypertension. He reports he takes one pill for each one of these, but has no idea what the name is. PAST SURGICAL HISTORY: Includes a meningioma resected from his left brain by Dr. Hammond about 2008. He denies any other surgeries or hospitalizations. PERSONAL AND SOCIAL HISTORY: The patient has been smoking since his teenage years, now about half a pack per day. REVIEW OF SYSTEMS: CARDIOVASCULAR: The patient reports that he had a stent placed in an artery in his left leg in 2018. He does not know the doctor's name. When I asked if he did not take aspirin or Plavix, he says "I must have." He denies any knowledge of any cardiac problem. He denies any chest pain or palpitations in the past. GENERAL: He walks with a cane due to his left leg. PHYSICAL EXAMINATION: GENERAL: At this time shows a pleasant, obese man with full mustache that is stained by smoke. VITAL SIGNS: Blood pressure 126/79 and temperature 99.8. HEAD, EYES, EARS, NOSE, AND THROAT: Unremarkable. NECK: No jugular venous distention. No bruits. THORAX: Heart sounds S1 and S2 are equal. No murmurs. LUNGS: Clear. ABDOMEN: Protuberant. Normal bowel sounds. EXTREMITIES: No cyanosis, clubbing, or edema. The left buttock has an enlarged abscess that is approximately 20 cm x 15 cm in size and raised above the other skin by 1-2 cm. LABORATORY STUDIES: Pertinent laboratory studies show a creatinine of 2.62. White cell count 12.6. Urinalysis show 6-10 white cells per high-power field, casts, bacteria, and 2+ protein. ASSESSMENT: 1. Abscess. 2. Type 2 adult-onset diabetes. 3. History of hypertension. 4. Renal insufficiency with casts. 5. Peripheral vascular disease. PLAN: Give the patient IV fluids and antibiotics. We will begin sliding scale insulin and ask for General Surgery consultation. I have discussed these things with the patient and his prognosis is guarded in multiple respects. MD LUCIANO Flores/KALPESH /[id number] cc: MD Gama Onofre MD
[2018-09-06 18:08] LABS: CREATININE,URINE RANDOM 117.51 mg/dL (63-166)
--- NOTE | 2018-09-06 19:43 | NUR ---
PATIENT IN STABLE CONDITION WITH NO S/S OF RESPIRATORY DISTRESS. NO PAIN VOICED. IV FLUIDS INFUSING. URINAL PROVIDED TO PATIENT. PATIENT REFUSED BED ALARM. CALL LIGHT IS WITHIN REACH, INSTRUCTED TO CALL FOR ASSISTANCE NEEDED. REPORT GIVEN TO ONCOMING NURSE.
[2018-09-06 22:52] LABS: TOTAL PROTEIN, URINE 299.6 mg/dL (1-14)
[2018-09-07] VITALS: BP 123/81
[2018-09-07] MEDS: SODIUM CHLORIDE 0.9% 1000ML 1,000 ML IV SCH ×3 (00:07→11:00)
[2018-09-07] MEDS: PIPERACILLIN/TAZO 2.25 GM 50 ML IV SCH ×4 (00:38→17:11)
--- NOTE | 2018-09-07 03:44 | NUR ---
Patient laying in bed with HOB slightly elevated. AAO x 3. Bed at low position and locked. Call light within reach. Patient reports on no pain at this time. No acute distress noted. No sob noted. Patient in stable condition, will continue to monitor.
[2018-09-07 04:00] VITALS: BP 143/93
[2018-09-07 06:00] LABS: ALBUMIN 2.5 g/dL (3.5-5.0); ALBUMIN/GLOBULIN RATIO 0.6 (0.8-2.0); ANION GAP 11.2 mmol/L (8-16); CREATININE, SERUM 1.93 mg/dL (0.72-1.25); POTASSIUM 4.2 mmol/L (3.5-5.1)
--- NOTE | 2018-09-07 06:44 | NUR ---
Patient noted with left buttock abscess draining, cleaned with NS, pat dry, and wet-dry dressing applied. Patient tolerated well. Patient c/o of pain to left buttock, prn pain med administered per MD order. Patient in stable condition and will continue to monitor.
--- NOTE | 2018-09-07 06:58 | NUR ---
Dr. Galo notified, canceled sx and ordered patient to shower and apply dry dressing to the site.
--- NOTE | 2018-09-07 07:00 | NUR ---
PATIENT IN STABLE CONDITION WITH NO S/S OF RESPIRATORY DISTRESS. PATIENT DENIES ANY PAIN- PATIENT RECENTLY RECEIVED PAIN MEDICATION. DRESSING APPLIED TO PATIENT'S LEFT BUTTOCK- NO DRAINAGE NOTED FROM DRESSING. IV FLUIDS INFUSING. BED ALARM ON. CALL LIGHT IS WITHIN REACH, PATIENT INSTRUCTED TO CALL FOR ASSISTANCE NEEDED.
[2018-09-07] MEDS: INSULIN REGULAR, HUMAN 100 UNIT/1 ML 3ML VIAL SQ SCH ×3 (07:30→16:30)
[2018-09-07 07:32] VITALS: BP 137/68
--- NOTE | 2018-09-07 07:45 | NUR ---
PATIENT MADE AWARE THAT SURGERY CANCELLED D/T ABSCESS RUPTURING ON ITS OWN AND ADA HAS BEEN RESUMED. PATIENT STARTED TO YELL AT THE RN ABOUT HIS CARE AND STATED "GET THE PHYSICIAN HERE NOW TO SEE IT OR I'M LEAVING AND I DON'T CARE". PATIENT MADE AWARE THE PHYSICIANS WILL ROUND TODAY BUT THE ACTUAL TIME IS UNKNOWN.
--- NOTE | 2018-09-07 08:43 | Consultation ---
DATE OF CONSULTATION: 09/06/2018 HISTORY OF PRESENT ILLNESS: This is a 53-year-old gentleman, underlying history of longstanding diabetes. Renal consulted for management of acute kidney injury as well as abnormal urinary sediment. The patient follows up with Dr. Narvaez, has diabetes for over 20 years with neuropathy, retinopathy. He has never been told that he has abnormal kidney function. He denies any history of prostate enlargement or kidney stone disease. Has history of hypertension. He has been admitted with buttock abscess, seen by General Surgery. Plan for I and D noted. Received piperacillin-tazobactam once, currently on Piptaz 2.25 q.6, also on IV normal saline at 125 mL/h, received one time dose of vancomycin. He is on Tylenol p.r.n., ondansetron p.r.n., and insulin on sliding scale. SOCIAL HISTORY: The patient does not smoke or drink. FAMILY HISTORY: Significant for diabetes and hypertension. PHYSICAL EXAMINATION: GENERAL: The patient is awake, alert, and oriented x3. Lying supine in bed. No apparent distress. VITAL SIGNS: Blood pressure 131/85, pulse rate , febrile. HEAD AND NECK: Cornea clear. Oral mucosa moist. Neck veins flat. LUNGS: Relatively clear. HEART: S1 and S2 audible. ABDOMEN: Soft, nontender. EXTREMITIES: Lower extremities examination shows no edema. Buttock area not examined. IMPRESSION AND PLAN: Acute kidney injury with laboratory test showing significantly elevated white count of 12.6, hemoglobin 16.5, potassium 4.2, bicarbonate 25 with a creatinine 2.4, blood sugar 248, total protein 7.2, globulin 4.5. Etiology looking at the urinalysis suggestive of possible and most likely diabetic nephropathy with fine granular casts and coarse granular casts, must rule out acute tubular necrosis. Urine rbcs are 0 to 5 and urine wbc of 6 to 10. The patient has specific gravity of 1.030, pH of 5, dip stick positive protein. It appears the patient is hemoconcentrated and perhaps dehydrated. Continue with IV fluids. We will obtain spot urine protein-creatinine ratio, serum uric acid level, kidney ultrasound. We will monitor the patient's kidney function, urine output with you. I doubt we are dealing with glomerulonephritis. Elevated globulins noted. We will address at a later date once hydration is complete. MD JOIE Washington/KALPESH /[id number]
[2018-09-07 08:46] VITALS: BP 137/68
--- NOTE | 2018-09-07 10:49 | Diagnostic Imaging Report ---
EXAM: Renal Ultrasound INDICATION: BARRIE COMPARISON: None TECHNIQUE: Transverse and longitudinal images of the kidneys and bladder were obtained. FINDINGS: Right Kidney: Length: Measures 10.1 x 6.1 x 4.8 cm Appearance: Normal echogenicity. Collecting system: No hydronephrosis Stones: None Cyst/Mass: None Left Kidney: Length: Measures 1.9 x 6.1 x 4.9 cm Appearance: Normal echogenicity. Collecting system: No hydronephrosis Stones: There is a 3 mm echogenic focus with shadowing in the midpole. Cyst/Mass: None Bladder: Unremarkable in appearance. Bilateral ureteral jets are present. Other: Incidental splenomegaly measuring 15 cm. IMPRESSION: No evidence of hydronephrosis. 3 mm nonobstructing left midpole renal stone. Incidental splenomegaly measuring 15 cm. Signed by: Dr. Blanco Spicer MD on 09/07/2018 10:46 AM
[2018-09-07 11:16] VITALS: BP 133/74
[2018-09-07] MEDS ORDERED: LOSARTAN-HCTZ1 EAC2 (13:12)
[2018-09-07] MEDS ORDERED: LOVASTATIN40 MG (13:12)
[2018-09-07] MEDS ORDERED: AMLODIPINE BESY10 MG PO (13:12)
[2018-09-07] MEDS ORDERED: GLIMEPIRIDE2 MG PO (13:12)
[2018-09-07] MEDS ORDERED: CLOPIDOGREL75 MG PO (13:12)
[2018-09-07 15:35] VITALS: BP 141/72
--- NOTE | 2018-09-07 15:45 | NUR ---
Visit made by the Spiritual Care Department Pastoral Visitor, Yared Major. PV provided pastoral presence, hospitality, and supportive listening. Pastoral Visitor informed pt/family of the scope of Instrument Repair Supervisor Services and availability. GINNA OREILLY Fitness Consultant Spiritual Care Department O: [phone] Pager: [phone] ([phone] calling from)
[2018-09-07] MEDS ORDERED: AUGMENTIN 875-1 EACH PO (18:18)
--- NOTE | 2018-09-07 18:40 | NUR ---
PATIENT OFF THE UNIT AT 1835 PER WHEELCHAIR ACCOMPANIED BY STAFF MEMBER TO THE FRONT LOBBY. PATIENT IN STABLE CONDITION WITH NO S/S OF RESPIRATORY DISTRESS. NO PAIN VOICED. DRESSING APPLIED TO LEFT BUTTOCK AREA. IV REMOVED WITH TIP INTACT. DISCHARGE TEACHING, INSTRUCTIONS, AND MEDICATION GIVEN TO THE PATIENT. ALL PERSONAL ITEMS TAKEN WITH THE PATIENT.
--- NOTE | 2018-09-11 13:20 | Discharge Summary ---
HISTORY OF PRESENT ILLNESS: Mr. Mariscal is a complex 53-year-old man, diabetic, who was referred from Dr. Narvaez's office on the afternoon of Saturday the for a large abscess on his left buttock. HOSPITAL COURSE: Presenting studies demonstrated serum creatinine of 2.62. Urinalysis showing 6 to 10 white cells per high-power field, bacteria, casts, and 2+ protein. His blood sugar was significantly elevated. He was started on broad-spectrum antibiotics and was seen by Dr. Martinez Galo, who had planned an incision and drainage. However, on the morning of the , the patient had spontaneous opening of his abscess and drainage. He was given fluids and sliding scale insulin. His kidney function is improved somewhat on the to a creatinine of 1.93. While further plans were made for both diabetic management and renal evaluation and abscess, the patient decided he needed to leave on the Saturday the . This was against medical advice and he did not take any prescriptions with him. He reported he will follow up with his family doctor. DISCHARGE DIAGNOSES: 1. Subcutaneous abscess. 2. Uncontrolled diabetes. 3. Moderate renal insufficiency. 4. Possible urinary tract infection. MD LUCIANO Flores/KALPESH /[id number] cc: MD Parish Onofre MD Ramon A Pineda, MD Kuldip K Kaul, MD
== END 2018-09-07 18:34 | disposition left against medical advice (07) | DRG 683 ==
LOC: ER 15:50 → ERHOLD 19:27 → MED/SURG3 09-06 00:13
PROVIDERS: ADMIT Internal Medicine Cardiovascular Disease; ATTEND Internal Medicine Cardiovascular Disease
DX: N17.9 Acute kidney failure, unspecified (principal); L02.31 Cutaneous abscess of buttock; N39.0 Urinary tract infection, site not specified; I10 Essential (primary) hypertension; E11.319 Type 2 diabetes mellitus with unspecified diabetic retinopathy without macular edema; Z79.4 Long term (current) use of insulin; E86.0 Dehydration; E11.65 Type 2 diabetes mellitus with hyperglycemia; E11.51 Type 2 diabetes mellitus with diabetic peripheral angiopathy without gangrene; E66.9 Obesity, unspecified; Z68.32 Body mass index [BMI] 32.0-32.9, adult
CPT/HCPCS: 36415; 76770; 80053; 81001; 82570; 82948; 83605; 84156; 84550; 85025; 87040; 93005; 93306; 93925; 96366; 99284; J2270; J2543; J3370; J7030

== ENCOUNTER 2019-08-31 23:03 | Inpatient (IN) | payer OTHER ==
[~2019-08-31] VITALS: Ht 185.4 cm; Wt 112.5 kg
[~2019-08-31 23:03] MED LIST: AMLODIPINE BESY10 MG PO; AUGMENTIN 875-1 EACH PO; CLOPIDOGREL75 MG PO; GLIMEPIRIDE2 MG PO; LOSARTAN-HCTZ1 EAC2; LOVASTATIN40 MG
--- OUTSIDE RECORDS SUMMARY | 2019-08-31 23:04 | XMS REPORT ---
Author Author [facility] Address Unknown Phone Unavailable Care Team Providers Care Machine Plaster Mixer Name Role Phone ROCHELLE Sapna BLANCO Unavailable Unavailable Problems This patient has no known problems. Allergies, Adverse Reactions, Alerts This patient has no known allergies or adverse reactions. Medications This patient has no known medications. Results Test Description Test Time Test Comments Text Results Atomic Results Result Comments US RENAL RETROPERITONEAL COMP 2018-09-07 10:40:00 [place] [address] Patient Name: SREEDHAR MCDONALD V MR #: [id number] : 1965 Age/Sex: 53/M Req #: [id number] [facility] Physician: FRANCIS BYRD MD Ordered by: YULISSA RIZZO, MIKKI RIZZO Report #: [id number] Location: [facility] Room/Bed: [facility] Procedure: [id number] US/US RENAL RETROPERITONEAL COMP Exam Date: 09/07/18 Exam Time: 927 REPORT STATUS: Signed EXAM: Renal Ultrasound INDICATION: BARRIE COMPARISON: None TECHNIQUE: Transverse and longitudinal images of the kidneys and bladder were obtained. FINDINGS: Right Kidney: Length: Measures 10.1 x 6.1 x 4.8 cm Appearance: Normal echogenicity. Collecting system: No hydronephrosis Stones: None Cyst/Mass: None Left Kidney: Length: Measures 1.9 x 6.1 x 4.9 cm Appearance: Normal echogenicit y. Collecting system: No hydronephrosis Stones: There is a 3 mm echogenic focus with shadowing in the midpole. Cyst/Mass: None Bladder: Unremarkable in appearance. Bilateral ureteral jets are present. Other: Incidental splenomegaly measuring 15 cm. IMPRESSION: No evidence of hydronephrosis. 3 mm nonobstructing left midpole renal stone. Incidental splenomegaly measuring 15 cm. Signed by: Dr. Zachary Guaman MD on 09/07/2018 10:46 AM Dictated By: ZACHARY GUAMAN MD 1046 Transcribed By: ARTURO on 09/07/18 1046 COPY TO: MIKKI DUENAS
[2019-08-31 23:36] LABS: BASOPHILS # (AUTO) 0.1 (0.0-0.1); BASOPHILS % 0.6 % (0.0-1.0); EOSINOPHILS # (AUTO) 0.1 (0.0-0.4); EOSINOPHILS % 0.9 % (0.0-6.0); HEMATOCRIT 56.1 % (38.2-49.6); HEMOGLOBIN 18.6 g/dL (14.0-18.0); LYMPHOCYTES # (AUTO) 1.2 (1.0-3.2); LYMPHOCYTES % 9.9 % (18.0-39.1); MEAN CORPUSCULAR HEMOGLOBIN 28.7 pg (28-32); MEAN CORPUSCULAR HGB CONC 33.2 g/dL (31-35); MEAN CORPUSCULAR VOLUME 86.6 fL (81-99); MONOCYTES # (AUTO) 0.6 (0.2-0.8); NEUTROPHILS # (AUTO) 9.9 (2.1-6.9); PLATELET COUNT 259 x10e3/uL (140-360); RED BLOOD COUNT 6.48 x10e6/uL (4.3-5.7); RED CELL DISTRIBUTION WIDTH 14.3 % (11.7-14.4)
[2019-08-31 23:40] LABS: INR 0.95; PROTHROMBIN TIME 13.2 seconds (11.9-14.5)
[2019-08-31 23:50] LABS: ALBUMIN 3.3 g/dL (3.5-5.0); ALBUMIN/GLOBULIN RATIO 0.7 (0.8-2.0); ANION GAP 14.1 mmol/L (8-16); CREATININE, SERUM 3.16 mg/dL (0.72-1.25); POTASSIUM 4.1 mmol/L (3.5-5.1)
[2019-09-01] VITALS (7 sets, daily range): BP systolic 117–146; BP diastolic 74–98
--- NOTE | 2019-09-01 00:01 | Diagnostic Imaging Report ---
History:Confusion, pain Comparison studies: None Technique: Axial images were obtained from the skull base to the vertex. Coronal and sagittal images reconstructed from the axial data. Dose modulation, iterative reconstruction, and/or weight based adjustment of the mA/kV was utilized to reduce the radiation dose to as low as reasonably achievable. Intravenous contrast: None Findings: Scalp/skull: An old left occipital craniectomy defect correlates with the patient's history of surgery for a meningioma. No gross abnormalities are seen in the underlying left cerebellum. No additional abnormalities in the scalp or in the skull. Extra-axial spaces: No masses. No fluid collections. Brain sulci: Mildly prominent Ventricles: Mild compensatory dilatation. No hydrocephalus. Parenchyma: Well-circumscribed cortical and subcortical hypodensities which involve the lateral aspect of the left temporal lobe (mostly the middle temporal gyrus) and the angular region of the left parietal lobe are consistent with acute nonhemorrhagic distal left MCA vascular insults. Subtle hypodensities in the supratentorial white matter are small vessel ischemic changes. No masses, hemorrhage, additional acute or chronic cortical vascular insults. Sellar/suprasellar region: No abnormalities. Craniocervical junction: Patent foramen magnum. No Chiari one malformation. Incidental findings: Atherosclerotic calcifications in the carotid siphons . 1 cm dystrophic left orbitofrontal dystrophic calcification without surrounding edema Impression: 1. Focal acute left temporal and parietal nonhemorrhagic distal left MCA vascular insults are presumed to be embolic. 2. No additional acute abnormalities. 3. Dr. Richards notified of the findings on 08/31/2019 at 2355 hours. Chronic findings: 1. Mild generalized volume loss. 2. Mild supratentorial white matter small vessel ischemic changes. 3. Old left occipital craniectomy consistent with patient's history of brain surgery for a meningioma. Signed by: Dr. Nate Merida M.D. on 08/31/2019 11:58 PM
[2019-09-01] MEDS ORDERED: ASPIRIN 81 MG CHEW TAB ONE (01:56)
[2019-09-01] MEDS ORDERED: ASPIRIN 81 MG CHEW TAB PO ONE (02:30)
--- NOTE | 2019-09-01 04:43 | Diagnostic Imaging Report ---
EXAMINATION: CHEST SINGLE (PORTABLE) INDICATION: Chest pain COMPARISON: None FINDINGS: TUBES and LINES: None. LUNGS: Hyperinflated lungs. Coarse pulmonary interstitial markings in the central and lower lungs. PLEURA: No pleural effusion or pneumothorax. HEART AND MEDIASTINUM: The cardiomediastinal silhouette is unremarkable. BONES AND SOFT TISSUES: No acute osseous lesion. Soft tissues are unremarkable. UPPER ABDOMEN: No free air under the diaphragm. IMPRESSION: Findings which can be seen with emphysema/obstructive pulmonary disease. Signed by: Anthony Daily DO on 09/01/2019 4:41 AM
--- NOTE | 2019-09-01 06:44 | Diagnostic Imaging Report ---
EXAM: VENTILATION PERFUSION LUNG SCAN INDICATION: Shortness of breath, 30+ years smoker COMPARISON: Chest x-ray 09/01/2019 DISCUSSION: Xenon-133 gas 11 mCi was administered via inhalation. Dynamic images of the lungs in the posterior projection were obtained through single breath and washout phases. Distribution of tracer activity is minimally irregular throughout the lungs. Washout is diffusely delayed but there is no evidence of air trapping. Perfusion images of the lungs in multiple projections were obtained following intravenous administration of 7 mCi of Tc-99m MAA. Distribution of tracer Minimally irregular throughout the lungs.There are no segmental perfusion defects of any size. The perfusion images are well matched to the ventilation images.. The contours of the lungs are well demarcated. The cardiac silhouette is normal. Images of the head and kidneys were obtained and show no intracranial or renal parenchyma accumulation of tracer. IMPRESSION: 1. Scan findings represent a LOW probability for acute pulmonary embolic disease based on the PIOPED II criteria. 2. Scan findings are compatible with diffuse parenchymal and/or obstructive lung disease. Signed by: Anthony Daily DO on 09/01/2019 6:42 AM
[2019-09-01 07:21] LABS: CREATINE KINASE MB 15.4 ng/mL (0-5.0)
[2019-09-01] MEDS ORDERED: HUMULIN R100 UNIT/2 (09:36)
[2019-09-01] MEDS ORDERED: PNEUMOCOCCAL VACCINE POLYVALENT 23 MCG/0.5 ML VIAL IM SCH (10:30)
[2019-09-01] MEDS ORDERED: INFLUENZA VIRUS VAC SPLIT INJ 0.5 ML SYR IM SCH (11:00)
[2019-09-01] MEDS ORDERED: DEXTROSE 50% SYRINGE 50 ML IV PRN (11:30)
[2019-09-01] MEDS: INSULIN REGULAR, HUMAN 100 UNIT/1 ML 3ML VIAL SQ SCH ×3 (11:30→20:57)
[2019-09-01] MEDS ORDERED: HYDRALAZINE HCL 20 MG/ML VIAL IV PRN (11:45)
[2019-09-01] MEDS: IPRATROPIUM BROMIDE 0.02% 2.5 ML NEB NEB SCH ×2 (13:29→19:10)
[2019-09-01] MEDS: MUPIROCIN 2% OINT 22 GM TUBE TOP SCH ×2 (13:32→23:37)
[2019-09-01] MEDS: SODIUM CHLORIDE 0.9% 1000ML 1,000 ML IV SCH (13:48)
--- NOTE | 2019-09-01 13:51 | Consultation ---
DATE OF CONSULTATION: 09/01/2019 Pulmonary Medicine Consult PRIMARY CARE PHYSICIAN: Gama Narvaez MD REASON FOR REFERRAL: Hypoxemia, stroke. HISTORY OF PRESENT ILLNESS: Mr. Mariscal is a pleasant 54-year-old gentleman, who presented with ear pain. Onset for 3 days. The patient was having some altered mental status reportedly. When patient came to the emergency room, he had a mild aphasia present. The patient had CT of the head, which demonstrated left sided parietal and separate temporal hypolucency suggesting embolic ischemic stroke. No evidence of bleeding. No midline shift. The patient was admitted for acute stroke care. During this care, patient was noted to have hypoxemia with saturations 86% on room air, oscillating to 94% on room air. There was concern for apnea as well. The patient denies allergies. Denies asthma. Denies knowledge of COPD. No GERD. His blood pressure coming to the hospital was 162/100. PAST MEDICAL HISTORY: Thyroid disorder, hyperlipidemia, history of DVT/PE, diabetes, meningioma, use of Plavix. There is no history of any cancer. MEDICATIONS: Medication list reviewed per the chart record. ALLERGIES: NO KNOWN DRUG ALLERGIES. SOCIAL HISTORY: No drinking. No drugs. The patient smoked from age [age], one pack per day. 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 He is right-handed. He lives with his . FAMILY HISTORY: Noncontributory. REVIEW OF SYSTEMS: Generally no ability to get reliably as he is having a hard time with concentration and attention span. OBJECTIVE: VITAL SIGNS: Afebrile, vital signs noted, reviewed per the chart record. GENERAL: In no acute distress, alert and calm. HEENT: Normocephalic, atraumatic. NECK: Supple. Throat midline. LUNGS: Bilateral air entry is moderate, rhonchi, mostly clear. CARDIOVASCULAR: S1, S2. No murmurs, rubs, or gallops. ABDOMEN: Soft, nontender. EXTREMITIES: No clubbing. No cyanosis. There is 1+ leg edema. INTEGUMENT: No rash or purpura. LABORATORY DATA: Labs reviewed per the chart record. Includes creatinine elevated 3.1. Chest x-ray with bibasilar atelectasis versus mild venous congestion. V/Q scan done low probability, but no parenchymal disease noted. IMPRESSION AND PLAN: 1. Mildly abnormal chest radiography, possible atelectasis versus scarring versus mild venous congestion. Mild alveolar pattern is favored. 2. Hypoxemia, presumed chronic obstructive pulmonary disease. 3. Obesity, possible obstructive sleep apnea. 4. Admitted with acute embolic cerebrovascular accident and ischemic. 5. Thyroid disorder. 6. History of deep vein thrombosis, possible pulmonary embolism. 7. Hyperlipidemia. 8. Diabetes. 9. History of meningioma, status post craniotomy with active head lucencies. Rule out other process. History of Plavix use, no known underlying diagnosis. 10. Chronic smoker. Check two-view chest x-ray when better. For now due to stroke with permissive hypertension. BiPAP/CPAP for sleep apnea empiric. The patient furthermore will have bronchodilators added. Consider low-dose steroids, short term. Follow up for fluid overload now that could be fluid loading in patient. Follow up renal function. Thank you very much, Dr. Pierson and Dr. Narvaez. Please call for questions. MD BHUPINDER Conn/MODL /[id number]
--- NOTE | 2019-09-01 14:14 | Diagnostic Imaging Report ---
Examination: MRI BRAIN WO CONTRAST History: Confusion. Altered mental status. Visual disturbance. Acute renal failure; stroke. Comparison studies: Head CT performed August 31, 2019. Technique: Sagittal T2; axial DWI, FLAIR, GRE or SWI, T1, Coronal FLAIR. Intravenous contrast: None Findings: Scalp: No abnormal signal. No masses. Bone marrow: Normal in signal intensity. Brain volume: Adequate for age. No volume loss. Ventricles: Normal in size and configuration. No hydrocephalus. Extra-axial spaces: No abnormalities. Parenchyma: There are patchy and confluent areas of T2/FLAIR hyperintensity in the periventricular and subcortical white matter, nonspecific. Cortical-based area of clear gliosis is identified in the left inferior parietal lobule and left superior and middle temporal gyri. No masses or hemorrhage. Suprasellar and sellar region: No abnormalities. Craniocervical junction: No abnormalities. The foramen magnum is patent. No Chiari malformations. Vessels: Normal flow-voids in the arteries and sinuses. Additional findings:None. IMPRESSION: Acute, nonhemorrhagic left MCA-LAVATORY ATTENDANT external watershed and left MCA infarcts, unchanged from prior head CT performed August 31, 2019. Mild chronic microvascular ischemic change. Signed by: Dr. Lizzie Francis M.D. on 09/01/2019 2:11 PM
[2019-09-01 15:25] LABS: CREATINE KINASE MB 12.6 ng/mL (0-5.0)
--- NOTE | 2019-09-01 17:51 | Diagnostic Imaging Report ---
MRA NECK WO HISTORY: Stroke COMPARISON: MRI of the brain 09/01/2019 TECHNIQUE: Axial 2-D cervical [id number] MRA images were obtained without contrast. Maximum intensity projection images were created. If present, any cervical carotid stenosis will be measured as a percentage relative to the [place] artery distal to the stenosis. FINDINGS: Right Carotid: No flow abnormalities. Left Carotid: No flow abnormalities. Right vertebral artery: No flow abnormalities. Left vertebral artery: No flow abnormalities. The intracranial arterial vasculature is partially imaged. The intradural vertebral, basilar, and proximal posterior cerebral arteries (P1 segments) are grossly patent. The intracranial internal carotid arteries, M1 segments, and A1 segments are grossly patent. Incidental findings: Indeterminate mildly hyperintense subcutaneous mass in the right neck, superficial to the mid right sternocleidomastoid muscle, is partially imaged on coronal localizer images and measures up to 2.2 cm in craniocaudal dimension. IMPRESSION: 1. No cervical MRA abnormalities. 2. Indeterminate 2.2 cm ovoid subcutaneous mass in the mid right neck, superficial to the mid right sternocleidomastoid muscle. Further evaluation with nonemergent neck ultrasound or CT is recommended. Signed by: Dr. Pankaj Mtz M.D. on 09/01/2019 5:48 PM
[2019-09-01] MEDS: ALBUTEROL SULF 0.083% NEB SOLN 3 ML NEB NEB PRN (19:10)
[2019-09-01] MEDS ORDERED: ENOXAPARIN SODIUM INJ 100 MG/ML SYR SC SCH (22:15)
--- NOTE | 2019-09-01 22:54 | History and Physical ---
CHIEF COMPLAINT: Altered mental status. HISTORY OF PRESENT ILLNESS: A 54-year-old gentleman who presented to the [facility] in [place] late in the evening of August 31, 2019 with a chief complaint of having altered mental status over the course of the last two days or also. The patient was reluctant to come to the hospital for evaluation. Eventually, he was brought by family members. Concern about the possibility of transfer the patient to a tertiary care for further evaluation pertaining the patient's neurological status. The patient had a CT of the head, which demonstrated left-sided parietal abnormality findings suggestive of embolic ischemic stroke. There was no evidence of bleeding or midline shift. The patient was able to follow conversation and was noted to have weakness in the right upper extremity about 4-5. The patient denies any fever or chills. No chest pain or shortness of breath. He has had blurry vision involving the right eye and peripheral vision did appear to be affected. The patient did not have loss of bowel or bladder control. He was noted in the Emergency Room Department to have hypoxemia, O2 saturation on room air was 85% for which he was found to have the patient need to have workup with D-dimer and V/Q scan, which was ordered. The patient likely does have obstructive sleep apnea. PAST MEDICAL HISTORY: Significant for diabetes mellitus and thyroid disorder. History of DVT and PE. History of brain hemangioma for which the patient underwent resection. There is no history of cancer. No myocardial infarction. No history of COPD that I am aware. FAMILY HISTORY: Noncontributory. SOCIAL HISTORY: History of smoking one pack a day for many years. No alcohol abuse or drug use. He does work. He is right-handed. He lives with . ALLERGIES: NO KNOWN NO KNOWN ALLERGIES. MEDICATIONS: Taken at time of admission per medication list. REVIEW OF SYSTEMS: CONSTITUTIONAL: Well. Denies fever or chills. CARDIOVASCULAR: blackout spells. RESPIRATORY: No cough, hemoptysis, or shortness of breath. GASTROINTESTINAL: No nausea, vomiting, diarrhea, hematochezia, or melena. GENITOURINARY: No dysuria, hematuria, or frequency. NEURO: See present history. The patient noted to have altered mental status and has had mild aphasia. His speech had improved by the time of my arrival around 1:00 am or so. LABORATORY DATA: Reveal sodium level was 134, potassium 4.1, chloride 101, CO2 of 23, BUN 50, creatinine 3.16, glucose level is 271, creatinine level of 3.74, CK-MB fraction 1800. Troponin 0.96. Albumin level 3.3. Total bilirubin of 4.5. CBC revealed hemoglobin 8.6 platelet count 259,000. IMAGING STUDIES: A CT scan of the brain, findings were consistent with a focal acute left temporal and parietal nonhemorrhagic distal left MCA vascular insults are presumed to be embolic. No asymmetric abnormalities noted. Current findings were that of mild generalized volume loss and mild supratentorial white matter small vessel ischemic changes and old left occipital craniectomy consistent with the patient's history of brain surgery for a meningioma. A further workup included an MRI of the brain and the findings of MRI where that of acute, nonhemorrhagic left MCA/FIELD CONTACT PERSON external watershed and left MCA infarct, unchanged from CAT scan done on August 31, 2019. ASSESSMENT: 1. Acute nonhemorrhagic left MCA/FIELD CONTACT PERSON external watershed and left MCA infarct. 2. Altered mental status secondary to above. 3. Slurred speech, resolved. 4. History of diabetes mellitus. 5. Obesity. 6. Hyperlipidemia. PLAN OF CARE: The patient will be admitted to the hospital and Neurology consultation has been requested. Place the patient on treatment, was given aspirin in the ER. Monitor blood pressure. Follow hemoglobin A1c. Further recommendation depending on the patient's clinical course. MD KRYSTYNA Barriga/KAIL /[id number] cc: Gama Narvaez MD MTDD
[2019-09-01] MEDS: ENOXAPARIN 30 MG/0.3 ML SYR SC SCH (23:37)
[2019-09-02] VITALS (7 sets, daily range): BP systolic 93–173; BP diastolic 65–114
[2019-09-02] MEDS: ALBUTEROL SULF 0.083% NEB SOLN 3 ML NEB NEB PRN ×3 (00:55→14:40)
[2019-09-02] MEDS: IPRATROPIUM BROMIDE 0.02% 2.5 ML NEB NEB SCH ×4 (00:55→19:15)
--- NOTE | 2019-09-02 02:19 | Consultation ---
DATE OF CONSULTATION: 09/01/2019 HISTORY: A 54-year-old male was admitted with a 3-day history of confusion as well as ear pain. The patient does not report any lateralized weakness. However, he has balance issues. He has history of resection of a meningioma. The patient because of the longevity of his symptoms more than 24 hours, he did not qualify for IV tPA or intra-arterial thrombolytics. CT scan of the head showed left MCA territory stroke. The patient was admitted for further evaluation. Because of his renal failure, the patient could not have a CT angiogram. The patient is a chronic smoker, also has history of obstructive sleep apnea. Of significance is that, he was having desaturation and hypoxemia. He is being evaluated for further treatment. His cardiac rhythm is normal sinus. There is no history of atrial fibrillation. MEDICATIONS: Per medication list includes he received aspirin as well as he is now on Plavix and he takes a statin. PAST MEDICAL HISTORY: Thyroid disease, hyperlipidemia, history of DVT and PE, diabetes, history of meningioma. ALLERGIES: UNKNOWN. SOCIAL HISTORY: No drug or alcohol abuse. He is a chronic smoker. FAMILY HISTORY: Noncontributory. REVIEW OF SYSTEMS: General, GI, and the rest are noncontributory otherwise. PHYSICAL EXAMINATION: VITAL SIGNS: Temperature 98, respiratory rate 16, pulse rate 80, blood pressure 121/60. HEENT: No meningeal signs. LUNGS: Bilateral rales. ABDOMEN: Obese. EXTREMITIES: Pulses present. NEUROLOGIC: The patient is slightly confused. He seems to have difficulty with comprehension. He probably has some form of mild receptive aphasia. No lateralized weakness. Fine motor movements were normal. He had problems with tandem gait and stability. No visual field defect. Pupils reactive to light. Deep tendon reflexes were 3 on the right and 1 on the left. Plantars are extensor on the right, flexor on the left. Sensory, symmetric to pinprick. No facial asymmetry. Uvula midline. FINDINGS: MRI of the brain shows a left MCA territory stroke. ASSESSMENT: 1. Status post left MCA territory stroke with receptive aphasia. The symptoms are at this time 3 days old. The patient is not a candidate for any thrombolytics or intra-arterial endovascular intervention. He was given aspirin. He is now on aspirin and Plavix as well as statins. His main deficit is the aphasia and gait problem. Will need physical, occupational, and speech therapy. He seems safe to eat at this point. We will work him up for etiology. At this point, he is in normal sinus rhythm. Unless, his workup shows an embolic source or his cardiac rhythm shows atrial fibrillation, we will stick with dual anti-platelet therapy. Deep vein thrombosis prophylaxis will be initiated with Lovenox 40 subcutaneous daily. I will keep his blood sugar in normal range and blood pressure in the upper normal range. Correct all cardiovascular risk factors. Target LDL for him is less than 70. Smoking cessation counseling was done today. 2. Tobacco abuse. 3. ALEK. 4. History of meningioma. 5. Hyperlipidemia. 6. Diabetes. 7. History of deep vein thrombosis and pulmonary embolism. 8. Hypertension. Recommend as above. The patient will also need rehabilitation evaluation at one point. We will keep him on neuro checks and with the above management at this point. Total face to face time spent today on this critically ill patient with acute stroke was 106 minutes with more than half the time spent counselling and coordination of care including discussions with family, patient, referring physician, staff and consultants. Veronika Rizvi MD AM/KALPESH /[id number] MTDRoberto
[2019-09-02] MEDS: SODIUM CHLORIDE 0.9% 1000ML 1,000 ML IV SCH ×2 (03:44→14:01)
[2019-09-02 06:04] LABS: HIV 1&2 AB SCREEN NON-REACTIVE (NONREACTIVE)
[2019-09-02 07:10] LABS: BASOPHILS # (AUTO) 0.1 (0.0-0.1); BASOPHILS % 0.7 % (0.0-1.0); EOSINOPHILS # (AUTO) 0.2 (0.0-0.4); EOSINOPHILS % 1.7 % (0.0-6.0); HEMATOCRIT 54.5 % (38.2-49.6); HEMOGLOBIN 17.4 g/dL (14.0-18.0); LYMPHOCYTES # (AUTO) 1.7 (1.0-3.2); LYMPHOCYTES % 18.2 % (18.0-39.1); MEAN CORPUSCULAR HEMOGLOBIN 28.2 pg (28-32); MEAN CORPUSCULAR HGB CONC 31.9 g/dL (31-35); MEAN CORPUSCULAR VOLUME 88.5 fL (81-99); MONOCYTES # (AUTO) 0.6 (0.2-0.8); MONOCYTES % 6.2 % (4.4-11.3); NEUTROPHILS # (AUTO) 6.8 (2.1-6.9); NEUTROPHILS % 72.2 % (38.7-80.0); PLATELET COUNT 233 x10e3/uL (140-360); RED BLOOD COUNT 6.16 x10e6/uL (4.3-5.7); RED CELL DISTRIBUTION WIDTH 14.2 % (11.7-14.4)
[2019-09-02 07:19] LABS: ANION GAP 12.1 mmol/L (8-16); CALCIUM 8.7 mg/dL (8.4-10.2); CREATININE, SERUM 2.01 mg/dL (0.72-1.25); POTASSIUM 4.1 mmol/L (3.5-5.1)
[2019-09-02] MEDS: INSULIN REGULAR, HUMAN 100 UNIT/1 ML 3ML VIAL SQ SCH ×4 (07:30→20:37)
--- NOTE | 2019-09-02 08:51 | Diagnostic Imaging Report ---
EXAMINATION: CHEST SINGLE (PORTABLE) INDICATION: Screening. COMPARISON: Chest radiograph 09/01/2019. FINDINGS: Exam is somewhat limited by soft tissue attenuation and portable technique. TUBES and LINES: None. LUNGS: Hyperinflated lungs. Persistent mild lower lung zone interstitial opacities. No new consolidation. PLEURA: No pleural effusion or pneumothorax. HEART AND MEDIASTINUM: The cardiomediastinal silhouette is unremarkable. BONES AND SOFT TISSUES: No acute osseous lesion. Soft tissues are unremarkable. UPPER ABDOMEN: No free air under the diaphragm. IMPRESSION: Hyperinflated lungs without acute radiographic abnormality. Signed by: Dr. Blanco Spicer MD on 09/02/2019 8:48 AM
[2019-09-02] MEDS: ENOXAPARIN 30 MG/0.3 ML SYR SC SCH (09:14)
[2019-09-02] MEDS: ASPIRIN 81 MG ENTERIC COATED PO SCH (09:14)
[2019-09-02] MEDS: MUPIROCIN 2% OINT 22 GM TUBE TOP SCH ×2 (12:22→21:26)
[2019-09-02] MEDS: AMLODIPINE BESYLATE 10 MG TAB PO SCH (13:44)
[2019-09-02] MEDS: CLOPIDOGREL BISULFATE 75 MG TAB PO SCH (14:00)
--- NOTE | 2019-09-02 14:28 | Consultation ---
DATE OF CONSULTATION: 09/02/2019 REASON FOR CONSULTATION: CVA. HISTORY OF PRESENT ILLNESS: A 54-year-old man with history of hypertension, diabetes, and dyslipidemia, presents with visual disturbances, dizziness, and altered mental status, found to have watershed infarct of ischemic etiology, for which he has been initiated on antiplatelet therapy, statin, and liberalize blood pressure control. Neurology has seen the patient. Jono denies any active chest pain. Does describe some occasional exertional dyspnea, has been ongoing for several months. He also notices episodes of palpitation occurring intermittently throughout the last several months without any recent spells. Those palpitations seem to occur for several seconds at a time. He denies any lightheadedness or syncope. REVIEW OF SYSTEMS: A 12-system review is negative except for as noted above. PAST MEDICAL HISTORY: As per HPI. SOCIAL HISTORY: Tobacco abuse. Occasional alcohol use. No drugs. FAMILY HISTORY: Noncontributory. PHYSICAL EXAMINATION: VITAL SIGNS: Temperature 98.8, heart rate 98, respiratory rate 18, blood pressure 173/114, and O2 saturation 96%. BMI 32.7. GENERAL: In no acute distress. Alert. NECK: No JVD. CHEST: Clear to auscultation. CARDIOVASCULAR: Regular rate and rhythm. Normal S1 and S2. No S3. No S4. Systolic ejection murmur 1/6. ABDOMEN: Soft and nontender. Bowel sounds positive. EXTREMITIES: No edema. Warm distal extremities. Decreased pedal pulses. CARDIOVASCULAR MEDICATIONS: Reviewed. Aspirin 81 mg daily, Lovenox 30 mg subcutaneous daily, hydralazine 10 mg q.4 hours, clopidogrel 75 mg daily, and atorvastatin 80 mg at bedtime. STUDIES: Reviewed. Sodium 136, potassium 4.1, chloride 104, bicarbonate 24, BUN 42, creatinine 2, and glucose 108. White blood cells 9, hemoglobin 17, and platelets 233. INR 0.95. AST 22, ALT is 23, and alkaline phosphatase 127. ASSESSMENT AND PLAN: A 54-year-old man with ischemic cerebrovascular accident, hypertension, diabetes, dyslipidemia, renal failure, and palpitations. RECOMMEND: Continue all source collection manager while in-house. Review so far reveals sinus rhythm with rare PVCs without any evidence of arrhythmias such as atrial fibrillation or atrial flutter. Continue surveillance while in hospital is advised with consideration of outpatient all source collection manager and possibly the implantable loop recorder depending on initial workup. He has aortic sclerosis without stenosis on echocardiogram. Further outpatient evaluation for dyspnea on exertion is also encouraged. Statin to highest tolerated potency. Blood pressure optimization after initial 48 hours from stroke and antiplatelet therapy is advised for now. I thank, Dr. Narvaez and Dr. Pierson for the opportunity to participate in the care of Mr. Mariscal. Please feel free to call with any questions, . Philip Barclay MD AFVasiliy/MODL /[id number]
[2019-09-02] MEDS: GLIMEPIRIDE 2 MG TAB PO SCH (16:55)
[2019-09-03] VITALS: BP 130/85
--- NOTE | 2019-09-03 01:05 | Progress Note ---
DATE: 09/02/2019 SUBJECTIVE: The patient is resting today. No new neurologic symptoms. Still aphasic. MEDICATIONS: Per medication list. REVIEW OF SYSTEMS: The patient has been seen by Cardiology. No evidence of clear embolic source at this point. No evidence of atrial fibrillation. PHYSICAL EXAMINATION: VITAL SIGNS: Temperature 98, respiratory rate 16, pulse rate 80, blood pressure 121/60. HEAD AND NECK: No meningeal signs. LUNGS: Good air entry. ABDOMEN: Obese. NEUROLOGIC: Receptive aphasia. Abnormal tandem gait. Rest of cranial nerve examination is unremarkable. No lateralized weakness. Sensory, decreased pinprick and vibration distally. ASSESSMENT: Status post left MCA territory stroke with receptive aphasia on dual anti-platelet therapy, aspirin and Plavix as well as high-dose statins. Physical, occupational, and speech therapy initiated and seen by Cardiology. Plans for outpatient cardiac technologist for possible atrial fibrillation. Continue with VTE prophylaxis for now with target LDL less than 70. Smoke cessation counseling done today again. Multiple medical problems including obstructive sleep apnea, tobacco abuse, history of angioma, hyperlipidemia, diabetes, history of deep vein thrombosis, pulmonary embolism, and hypertension. Recommend, we will start lowering the blood pressure slowly around 10% every day back to normal. Keep blood sugar in normal range. Rehabilitation evaluation pending. Total face to face time spent today on this critically ill patient with acute stroke was 106 minutes with more than half the time spent counselling and coordination of care including discussions with family, patient, referring physician, staff and consultants. Veronika Rizvi MD AM/KALPESH /[id number] YAMILET
[2019-09-03] MEDS: IPRATROPIUM BROMIDE 0.02% 2.5 ML NEB NEB SCH ×3 (01:37→15:06)
[2019-09-03 04:00] VITALS: BP 121/93
[2019-09-03 05:35] LABS: BASOPHILS # (AUTO) 0.1 (0.0-0.1); BASOPHILS % 0.8 % (0.0-1.0); EOSINOPHILS # (AUTO) 0.2 (0.0-0.4); EOSINOPHILS % 2.5 % (0.0-6.0); HEMATOCRIT 51.6 % (38.2-49.6); HEMOGLOBIN 15.8 g/dL (14.0-18.0); LYMPHOCYTES # (AUTO) 1.8 (1.0-3.2); LYMPHOCYTES % 18.3 % (18.0-39.1); MEAN CORPUSCULAR HEMOGLOBIN 27.8 pg (28-32); MEAN CORPUSCULAR HGB CONC 30.6 g/dL (31-35); MEAN CORPUSCULAR VOLUME 90.7 fL (81-99); MONOCYTES # (AUTO) 0.7 (0.2-0.8); NEUTROPHILS # (AUTO) 6.7 (2.1-6.9); NEUTROPHILS % 70.5 % (38.7-80.0); PLATELET COUNT 206 x10e3/uL (140-360); RED BLOOD COUNT 5.69 x10e6/uL (4.3-5.7); RED CELL DISTRIBUTION WIDTH 13.8 % (11.7-14.4)
[2019-09-03 06:06] LABS: ANION GAP 10.1 mmol/L (8-16); CALCIUM 8.6 mg/dL (8.4-10.2); CREATININE, SERUM 2.15 mg/dL (0.72-1.25); POTASSIUM 4.1 mmol/L (3.5-5.1)
[2019-09-03 06:24] LABS: CHOL/HDL RATIO 5.5 (3.9-4.7)
[2019-09-03] MEDS: INSULIN REGULAR, HUMAN 100 UNIT/1 ML 3ML VIAL SQ SCH ×2 (07:30→11:30)
[2019-09-03 07:39] VITALS: BP 128/85
[2019-09-03] MEDS ORDERED: ACETAMINOPHEN 325 MG TAB PO PRN (09:00)
[2019-09-03] MEDS ORDERED: ATORVASTATIN 20 MG TAB PO SCH (09:00)
[2019-09-03] MEDS ORDERED: SIMVASTATIN 20 MG TAB PO SCH (09:00)
[2019-09-03] MEDS ORDERED: ATORVASTATIN 40 MG TAB PO SCH (09:00)
[2019-09-03] MEDS ORDERED: SITAGLIPTIN 100 MG TAB PO SCH (09:00)
[2019-09-03] MEDS ORDERED: INSULIN GLARGINE 100 UNITS/ML VIAL SQ SCH (09:00)
[2019-09-03] MEDS: AMLODIPINE BESYLATE 10 MG TAB PO SCH (09:25)
[2019-09-03] MEDS: CLOPIDOGREL BISULFATE 75 MG TAB PO SCH (09:25)
[2019-09-03] MEDS: ENOXAPARIN 30 MG/0.3 ML SYR SC SCH (09:25)
[2019-09-03] MEDS: ASPIRIN 81 MG ENTERIC COATED PO SCH (09:25)
[2019-09-03] MEDS: GLIMEPIRIDE 2 MG TAB PO SCH ×2 (09:26→16:40)
[2019-09-03 09:56] VITALS: BP 128/85
[2019-09-03 11:15] LABS: CLARITY,URINE CLEAR (CLEAR); COLOR,URINE YELLOW (YELLOW); LEUKOCYTE ESTERASE ,URINE NEGATIVE (NEGATIVE)
[2019-09-03 11:16] LABS: BACTERIA,URINE RARE /HPF; BILIRUBIN,URINE NEGATIVE (NEGATIVE); EPITHELIAL CELLS,URINE FEW /LPF; KETONES,URINE NEGATIVE (NEGATIVE); NITRITE,URINE NEGATIVE (NEGATIVE); PROTEIN,URINE DIPSTICK 2+ (NEGATIVE); URINE UROBILINOGEN 0.2 mg/dL (0.2 - 1)
[2019-09-03] MEDS: MUPIROCIN 2% OINT 22 GM TUBE TOP SCH (11:30)
[2019-09-03 11:43] VITALS: BP 129/90
[2019-09-03] MEDS ORDERED: PROAIR HFA INH8.5 GM IH (11:54)
[2019-09-03] MEDS ORDERED: BEVESPI AEROS10.7 GM IH (11:54)
[2019-09-03 13:05] LABS: CREATININE,URINE RANDOM 147.83 mg/dL (63-166)
[2019-09-03 13:35] LABS: TOTAL PROTEIN, URINE 517.2 mg/dL (1-14)
[2019-09-03 15:41] VITALS: BP 131/81
--- NOTE | 2019-09-03 16:38 | Consultation ---
DATE OF CONSULTATION: 09/03/2019 Renal Consultation REASON FOR CONSULTATION: Chronic kidney disease. HISTORY OF PRESENT ILLNESS: A 54-year-old male with long history of diabetes and chronic kidney disease, presented to [facility] on August 31 with altered mental status. The patient states that he was confused and was having problems with his balance and had a history of meningioma resection in the past. The patient was seen by Neurology and a CT scan showed left MCA territory stroke. The patient was admitted and was not a candidate for tPA due to the chronicity of event. The patient was found to have elevated creatinine and Nephrology consultation was called. The patient states that he has been told in the past that he had chronic kidney disease, but has never seen a stone polisher hand. REVIEW OF SYSTEMS: 12-point review of systems completed. All systems negative other than in the HPI above. PAST MEDICAL HISTORY: 1. Diabetes, approximately 20 years. 2. Hypertension. 3. Chronic kidney disease. 4. History of meningioma. 5. Dyslipidemia. 6. History of DVT and pulmonary embolism. 7. Thyroid disease. PAST SURGICAL HISTORY: Meningioma resection. SOCIAL HISTORY: Positive tobacco. No alcohol. No IV drugs. FAMILY HISTORY: No family history of kidney disease. ALLERGIES: NO KNOWN DRUG ALLERGIES. CURRENT MEDICATIONS: See list. PHYSICAL EXAMINATION: VITAL SIGNS: Blood pressure 128/85, pulse 98, respiratory rate 18, temperature 98.8. GENERAL: No apparent distress. HEENT: Oropharynx clear. No scleral icterus. No peripheral edema. NECK: Supple. No elevation of jugular venous pressure. No lymphadenopathy. CHEST: Clear to auscultation anteriorly bilaterally. CARDIOVASCULAR: Regular rhythm. No murmurs, rubs, or gallops. ABDOMEN: Soft, positive bowel sounds. No tenderness. No rebound. EXTREMITIES: No edema. No clubbing. No cyanosis. SKIN: Warm. LABORATORY DATA: Sodium 138, potassium 4.1, chloride 103, CO2 29, BUN 40, creatinine 2.15. Estimated GFR 32 mL/minute. Hemoglobin 15.8, hematocrit 51.6, white count 9.54. Imaging reviewed. Chest x-ray on 09/01 shows hyperinflated lungs. ASSESSMENT/PLAN: 1. Stage 3 chronic kidney disease, suspect secondary to diabetic nephropathy. We will check urine studies. Rest of the workup could be done as an outpatient as the patient to be discharged today. 2. Diabetes per primary team. 3. Hypertension. Blood pressure controlled. We will evaluate for JEREMIAS inhibitor as an outpatient. 4. Euvolemic on exam. 5. Stroke per Neurology. Advised the patient against NSAIDs and smoking. MD LUCIANO Mcfarland/KALPESH /[id number]
--- NOTE | 2019-09-03 16:48 | Progress Note ---
DATE: 09/03/2019 Cardiology Progress Note SUBJECTIVE: Denies any chest pain or shortness of breath. Denies recurrent dizziness, weakness, or changes in speech, vision, or gait. Denies additional changes to vision overnight. OBJECTIVE: VITAL SIGNS: Temperature 98.6, heart rate 100, blood pressure 129/90, respiratory rate 20, O2 saturation 98%. BMI 32.7. GENERAL: In no acute distress. Alert. NECK: No JVD. CHEST: Clear to auscultation. CARDIOVASCULAR: Regular rate and rhythm. Normal S1, S2. No S3 or S4. ABDOMEN: Soft. Bowel sounds positive. EXTREMITIES: No edema. Warm extremities. CARDIOVASCULAR MEDICATIONS: Reviewed. Atorvastatin 80 mg at bedtime, enoxaparin 30 mg subcu daily, hydralazine 10 mg q.4 hours, amlodipine 10 mg daily, clopidogrel 75 mg daily, aspirin 81 mg daily. LABORATORY DATA: Studies reviewed. Sodium 138, potassium 4.1, chloride 103, bicarbonate 29, BUN 40, creatinine 2.1, glucose 66. White blood cells 9.5, hemoglobin 15.8, platelets 206. INR 0.95. AST 22, ALT 23, and alkaline phosphatase 127, total bilirubin 0.5. ASSESSMENT AND PLAN: A 54-year-old man with cerebrovascular ischemic event, aortic sclerosis without stenosis, chronic kidney disease, PVCs, dyspnea on exertion, obstructive sleep apnea, smoking, hypertension, diabetes mellitus, morbid obesity. RECOMMEND: 1. Continue current cardiovascular medications. Outpatient telemetry monitoring and consideration of ILR depending on initial results. 2. Outpatient stress test. 3. Office contact information provided. 4. Continue current cardiovascular medications. MD LIBBY Nice/KAIL /[id number]
--- NOTE | 2019-09-04 01:00 | Progress Note ---
DATE: 09/03/2019 The patient is being discharged today. No new neurologic symptoms. He will be following with his primary physician. Neurologically, he has mild receptive aphasia. He was cleared by Physical/Occupational Therapy. He will have speech therapy as an outpatient and follow up with his primary physician. Continue antiplatelets dual therapy as well as statins. No driving, and safety precautions discussed. Total face to face time spent today on this critically ill patient with acute stroke was 106 minutes with more than half the time spent counselling and coordination of care including discussions with family, patient, referring physician, staff and consultants. Veronika Rizvi MD AM/KALPESH /[id number] MTDD
[2019-09-04] MEDS ORDERED: SITAGLIPTIN 100 MG TAB PO SCH (09:00)
== END 2019-09-03 16:45 | disposition home or self-care (01) | DRG 65 ==
LOC: ER 23:03 → ERHOLD 09-01 01:03 → IMCU 09-01 09:04
PROVIDERS: ADMIT Internal Medicine; ATTEND Internal Medicine
DX: I63.411 Cerebral infarction due to embolism of right middle cerebral artery (principal); G93.49 Other encephalopathy; Z86.718 Personal history of other venous thrombosis and embolism; Z86.711 Personal history of pulmonary embolism; E66.9 Obesity, unspecified; E78.5 Hyperlipidemia, unspecified; G47.33 Obstructive sleep apnea (adult) (pediatric); R09.02 Hypoxemia; R47.01 Aphasia; R93.89 Abnormal findings on diagnostic imaging of other specified body structures; E07.9 Disorder of thyroid, unspecified; F17.210 Nicotine dependence, cigarettes, uncomplicated; R00.2 Palpitations; N18.3 Chronic kidney disease, stage 3 (moderate); E11.22 Type 2 diabetes mellitus with diabetic chronic kidney disease; I12.9 Hypertensive chronic kidney disease with stage 1 through stage 4 chronic kidney disease, or unspecified chronic kidney disease; E11.21 Type 2 diabetes mellitus with diabetic nephropathy; I49.3 Ventricular premature depolarization; I70.0 Atherosclerosis of aorta; Z68.32 Body mass index [BMI] 32.0-32.9, adult; I48.91 Unspecified atrial fibrillation; R40.2423 Glasgow coma scale score 9-12, at hospital admission; Z79.84 Long term (current) use of oral hypoglycemic drugs
CPT/HCPCS: 36415; 70450; 70547; 70551; 71045; 78582; 80048; 80053; 80061; 80329; 81001; 82140; 82550; 82553; 82570; 82948; 83036; 84156; 84484; 85025; 85379; 85610; 85651; 87390; 93005; 93306; 93970; 94640; 94660; 97139; 99285; A9540; A9558; G0433; G0435; J1650; J1815; J1817; J7030

== ENCOUNTER 2020-01-20 09:32 | Inpatient (IN) | payer OTHER ==
[2020-01-15 09:35] LABS: BASOPHILS # (AUTO) 0.1 (0.0-0.1); BASOPHILS % 0.8 % (0.0-1.0); EOSINOPHILS # (AUTO) 0.3 (0.0-0.4); EOSINOPHILS % 3.5 % (0.0-6.0); HEMATOCRIT 53.9 % (38.2-49.6); HEMOGLOBIN 16.2 g/dL (14.0-18.0); LYMPHOCYTES # (AUTO) 1.1 (1.0-3.2); LYMPHOCYTES % 15.7 % (18.0-39.1); MEAN CORPUSCULAR HEMOGLOBIN 26.5 pg (28-32); MEAN CORPUSCULAR HGB CONC 30.1 g/dL (31-35); MEAN CORPUSCULAR VOLUME 88.1 fL (81-99); MONOCYTES # (AUTO) 0.4 (0.2-0.8); MONOCYTES % 6.2 % (4.4-11.3); NEUTROPHILS # (AUTO) 5.2 (2.1-6.9); NEUTROPHILS % 72.8 % (38.7-80.0); PLATELET COUNT 213 x10e3/uL (140-360); RED BLOOD COUNT 6.12 x10e6/uL (4.3-5.7)
[2020-01-15 09:46] LABS: INR 0.89; PROTHROMBIN TIME 12.6 seconds (11.9-14.5)
[2020-01-15 09:47] LABS: PARTIAL THROMBOPLASTIN TIME 31.1 seconds (23.8-35.5)
[2020-01-15 09:55] LABS: ALBUMIN 2.7 g/dL (3.5-5.0); ALBUMIN/GLOBULIN RATIO 0.6 (0.8-2.0); ANION GAP 12.9 mmol/L (8-16); CALCIUM 8.7 mg/dL (8.4-10.2); CHOL/HDL RATIO 6.4 (3.9-4.7); CREATININE, SERUM 2.22 mg/dL (0.72-1.25); POTASSIUM 4.9 mmol/L (3.5-5.1)
--- NOTE | 2020-01-15 14:15 | NUR ---
reached out to patient for phone interview. Pt w/ questions regarding procedure and expectations that could not be readily explained and referred back to physician office. Contacted Dr. Burger office and spoke with Freya regarding pt understanding of procedure. Office agreed to contact patient for clarifications. - cgf
--- NOTE | 2020-01-15 14:30 | NUR ---
Pt returning phone call to interview for scheduled procedure. Review of medical history and current medications. Pt to bring medications in day of procedure for reconciliation. Review of pre-op orders, and visit completed. All questions clarified and or answered where appropriate. pt verbalizes understanding to include day of procedure expectations. - cgf
[~2020-01-20] VITALS: Ht 180.3 cm; Wt 111.1 kg
[2020-01-20] VITALS (15 sets, daily range): BP systolic 110–158; BP diastolic 74–109
[~2020-01-20 09:32] MED LIST changes: +BEVESPI AEROS10.7 GM IH; +HUMULIN R100 UNIT/2; +PROAIR HFA INH8.5 GM IH
[2020-01-20] MEDS ORDERED: HEPARIN SOD/SOD CHLORIDE 2,000 ML ONE (09:42)
[2020-01-20] MEDS ORDERED: SODIUM CHLORIDE 0.9% 1000ML 1,000 ML ONE (09:42)
[2020-01-20] MEDS ORDERED: IOPAMIDOL 370 MG/ML 200 ML INFUS..BTL INJ ONE (09:42)
[2020-01-20] MEDS ORDERED: MIDAZOLAM HCL 2 MG/2 ML VIAL ONE (09:42)
[2020-01-20] MEDS ORDERED: FENTANYL CITRATE/PF 100MCG/2 ML INJ ONE (09:42)
[2020-01-20] MEDS ORDERED: VERAPAMIL HCL 2.5 MG/ML 2 ML VIAL ONE (09:42)
[2020-01-20] MEDS ORDERED: LIDOCAINE HCL 2% LOCAL 20 ML VIAL ONE (09:42)
[2020-01-20] MEDS ORDERED: ASPIRIN 325 MG TAB ONE (09:51)
--- NOTE | 2020-01-20 10:00 | NUR ---
1000 Prep completed hand off to Shruti RN ds/rn
[2020-01-20] MEDS ORDERED: LASIX20 MG PO (10:06)
[2020-01-20] MEDS ORDERED: METOPROLOL SUCC25 MG PO (10:09)
[2020-01-20] MEDS ORDERED: LOVASTATIN40 MG PO (10:09)
[2020-01-20] MEDS ORDERED: TRESIBA100 UNIT/1 SC (10:09)
[2020-01-20] MEDS ORDERED: CLOPIDOGREL BISULFATE 75 MG TAB ONE ×2 (10:43→12:08)
[2020-01-20] MEDS ORDERED: FUROSEMIDE INJ 10 MG/ML 4 ML VIAL ONE (10:52)
[2020-01-20] MEDS ORDERED: ADENOSINE 6MG/2ML 1 ML ONE (10:54)
[2020-01-20] MEDS ORDERED: SODIUM CHLORIDE 0.9% 250ML 250 ML ONE (10:54)
[2020-01-20] MEDS ORDERED: HEPARIN SOD/SOD CHLORIDE 1,000 ML ONE (11:03)
[2020-01-20] MEDS ORDERED: ONDANSETRON HCL INJ 2MG/ML 2ML 2 MG/ML VIAL ONE (11:16)
[2020-01-20] MEDS ORDERED: EPTIFIBATIDE 75mg 100ML 100 ML ONE ×2 (12:02→17:00)
[2020-01-20] MEDS ORDERED: EPTIFIBATIDE 20 ML ONE (12:02)
[2020-01-20] MEDS ORDERED: HEPARIN 25,000U/0.45% NS 250ML 250 ML IV ONE (12:08)
[2020-01-20] MEDS ORDERED: EPTIFIBATIDE 2 MG/1 ML 10ML VIAL IV ONE (12:30)
[2020-01-20] MEDS ORDERED: ONDANSETRON HCL INJ 2MG/ML 2ML 2 MG/ML VIAL IV PRN (12:30)
[2020-01-20] MEDS: FUROSEMIDE INJ 10 MG/ML 4 ML VIAL IV SCH (16:58)
[2020-01-20] MEDS: SODIUM CHLORIDE 0.9% 1000ML 1,000 ML IV SCH (16:58)
[2020-01-20] MEDS ORDERED: EPTIFIBATIDE 75mg 100ML 100 ML IV ONE (17:00)
--- NOTE | 2020-01-20 17:18 | Consultation ---
DATE OF CONSULTATION: Pulmonary Critical Care consultation CHIEF COMPLAINT: Cardiogenic shock requiring intra-aortic balloon pump. HISTORY OF PRESENT ILLNESS: The patient is a 54-year-old man. He has a history of diabetes and chronic renal failure stage 3. He also has a history of a prior stroke. He came to the hospital for cardiac catheterization. Apparently, he had an obstruction in his right coronary artery. He had a stent placed, but then developed third-degree heart block and hypertension. He required an intra-aortic balloon pump. He was also seen by Electrophysiology. PAST SURGICAL HISTORY: 1. Status post meningioma with resection. 2. Status post cardiac catheterization and stent as noted above. PAST MEDICAL HISTORY: 1. Diabetes. 2. Chronic kidney disease. 3. DVT and pulmonary embolism. 4. Hypertension. 5. Thyroid disease. 6. Chronic systolic congestive heart failure. SOCIAL HISTORY: The patient was a prior smoker. He is not a drinker. FAMILY HISTORY: Noncontributory. ALLERGIES: NO KNOWN DRUG ALLERGIES. REVIEW OF SYSTEMS: He has no fevers. He is not complaining of any headache. He has no chest pain now. He has no cough. He has no dyspnea. His abdomen is soft. He is not complaining of nausea or vomiting. PHYSICAL EXAMINATION: VITAL SIGNS: The blood pressure is 117/85, the saturation is 95% on 2 L. Pulse is 83. HEENT: No facial swelling or erythema. The patient is on a nasal cannula. CARDIAC: Regular rate and rhythm with normal S1, S2. LUNGS: Auscultation of lungs reveals clear breath sounds bilaterally. There is no wheezing. ABDOMEN: Soft, nontender. There is no rebound or guarding. EXTREMITIES: No leg edema or calf tenderness. There is no cyanosis or clubbing. SKIN: No rashes. NEUROLOGICAL: No focal abnormalities. LABORATORY DATA: White blood cell count is 7.1 and hemoglobin is 16.2. The platelet count is 213. The BUN to creatinine ratio is 37 to 2.22. Other electrolytes are within normal limits. IMPRESSION: 1. Cardiogenic shock requiring intra-aortic balloon pump. 2. Transient third-degree heart block, improved. 3. Systolic cardiomyopathy. 4. Chronic renal failure, stage 3. 5. Diabetes. PLAN: 1. Await further input from Cardiology and Electrophysiology. 2. Continue intra-aortic balloon pump for now. 3. The patient is currently on anticoagulation, Plavix. 4. Continue to monitor renal function and electrolytes. MD COLE Becker/KALPESH /[id number]
[2020-01-20] MEDS: HYDROCODONE/APAP 5MG-325MG TAB PO PRN (17:27)
[2020-01-20 19:48] LABS: INR 0.91; PROTHROMBIN TIME 12.7 seconds (11.9-14.5)
[2020-01-20 19:49] LABS: PARTIAL THROMBOPLASTIN TIME 48.7 seconds (23.8-35.5)
[2020-01-20] MEDS: HEPARIN 25,000 UNIT 25,000 UNIT in DEXTROSE 5% 250ML 250 ML IV SCH (20:45)
--- NOTE | 2020-01-20 21:14 | Consultation ---
DATE OF CONSULTATION: 01/20/2020 REASON FOR CONSULT: Complete heart block. HISTORY OF PRESENT ILLNESS: This is a 54-year-old gentleman with history of hypertension, who presented for evidence of CAD. He underwent percutaneous coronary intervention of the right coronary artery, however, he had an episode of sudden onset of hypotension and complete heart block. He received a balloon pump implantation. Also, temporary pacemaker via right femoral vein by Dr. Burger. He is currently recovering in the ICU. This episode of complete heart block resolved. He is currently in sinus rhythm in the 80s. He is feeling better. Blood pressure has recovered as well. There is no history of syncope. No other events that he can remember. REVIEW OF SYSTEMS: CONSTITUTIONAL: Negative. CARDIOVASCULAR: As per HPI. RESPIRATORY: Negative. All other systems negative. PAST MEDICAL HISTORY: CAD. PAST SURGICAL HISTORY: Stent placement. FAMILY HISTORY: No premature coronary artery disease. SOCIAL HISTORY: Denies alcohol or smoking. PHYSICAL EXAMINATION: VITAL SIGNS: Blood pressure 110/60, pulse 80, respirations 20, and O2 saturation 98%. GENERAL: No acute distress. HEENT: Moist mucous membranes. CARDIOVASCULAR: Regular. RESPIRATORY: Clear. EXTREMITIES: 2+ distal pulses. Balloon pump in place and temporary pacing in place. Testing of the temporary pacer demonstrated good pacing threshold less than 1. LABORATORY DATA: EKG, sinus rhythm. IMPRESSION: Complete heart block, transient, currently resolved after medical therapy. He probably had an ischemic transient event via right coronary artery that has resolved. RECOMMENDATIONS: I had a long discussion with the patient. At this time, I agree with monitoring in the ICU. Appears that there was a reversible cause for the heart block, probably no indication for a permanent pacemaker. If he continues to do well tomorrow, a temporary pacemaker can be removed and we will provide the patient with our office contact information, in case there are any issues in the future. We will follow up as an outpatient. Thank you for letting us participate in Mr. Mariscal's healthcare. Jack Reyez MD JRC/MODL /[id number]
[2020-01-21] VITALS (24 sets, daily range): BP systolic 115–164; BP diastolic 70–100
[2020-01-21] MEDS: SODIUM CHLORIDE 0.9% 1000ML 1,000 ML IV SCH ×3 (00:16→18:30)
[2020-01-21 03:01] LABS: BASOPHILS # (AUTO) 0.1 (0.0-0.1); BASOPHILS % 0.4 % (0.0-1.0); EOSINOPHILS # (AUTO) 0.1 (0.0-0.4); EOSINOPHILS % 0.7 % (0.0-6.0); HEMATOCRIT 54.9 % (38.2-49.6); HEMOGLOBIN 16.7 g/dL (14.0-18.0); LYMPHOCYTES % 7.6 % (18.0-39.1); MEAN CORPUSCULAR HEMOGLOBIN 26.2 pg (28-32); MEAN CORPUSCULAR HGB CONC 30.4 g/dL (31-35); MEAN CORPUSCULAR VOLUME 86.1 fL (81-99); MONOCYTES # (AUTO) 0.7 (0.2-0.8); MONOCYTES % 5.8 % (4.4-11.3); NEUTROPHILS # (AUTO) 10.9 (2.1-6.9); NEUTROPHILS % 84.7 % (38.7-80.0); PLATELET COUNT 227 x10e3/uL (140-360); RED BLOOD COUNT 6.38 x10e6/uL (4.3-5.7); RED CELL DISTRIBUTION WIDTH 16.7 % (11.7-14.4)
[2020-01-21 03:18] LABS: ALBUMIN 2.8 g/dL (3.5-5.0); ALBUMIN/GLOBULIN RATIO 0.7 (0.8-2.0); ANION GAP 15.5 mmol/L (8-16); POTASSIUM 4.5 mmol/L (3.5-5.1)
[2020-01-21] MEDS: HEPARIN 25,000 UNIT 25,000 UNIT in DEXTROSE 5% 250ML 250 ML IV SCH (03:33)
[2020-01-21] MEDS: HYDROCODONE/APAP 5MG-325MG TAB PO PRN (06:34)
[2020-01-21] MEDS ORDERED: EPTIFIBATIDE 75mg 100ML 100 ML ONE (07:03)
[2020-01-21] MEDS: FUROSEMIDE INJ 10 MG/ML 4 ML VIAL IV SCH ×2 (08:48→17:44)
[2020-01-21] MEDS: ASPIRIN 81 MG CHEW TAB PO SCH (08:48)
[2020-01-21] MEDS: ATORVASTATIN 40 MG TAB PO SCH (08:51)
[2020-01-21] MEDS: CLOPIDOGREL BISULFATE 75 MG TAB PO SCH (08:51)
[2020-01-21] MEDS ORDERED: ATORVASTATIN 20 MG TAB PO SCH (09:00)
[2020-01-21] MEDS ORDERED: MORPHINE SULFATE INJ 4 MG/ML INJ 1ML ONE (09:52)
[2020-01-21] MEDS ORDERED: ATROPINE SULFATE 0.1 MG/ML 10ML SYR ONE (09:58)
--- NOTE | 2020-01-21 10:00 | NUR ---
SHEATH AND BALLOON PUMP REMOVED FROM R GROIN THIS RN AND TELEPHONE BETTING CLERK RN IN ROOM. PRESSURE DRESSING APPLIED AFTER 15MIN HOLD. WILL CONTINUE TO MONITOR SITE PT MADE AWARE TO REMAIN FLAT AND R LEG IMMOBILE FOR 6 HRS
[2020-01-21] MEDS ORDERED: MORPHINE SULFATE INJ 4 MG/ML INJ 1ML IV PRN (10:30)
--- NOTE | 2020-01-21 10:41 | History and Physical ---
CHIEF COMPLAINT: Shortness of breath post CAD, drug-eluting stent PCI to RCA. HISTORY OF PRESENT ILLNESS: Mr. Mariscal presents for drug-eluting stent PCI of RCA in the setting of severe systolic heart failure, LVEF 20% to 25%. Course complicated with slow flow post drug-eluting stent PCI, suspected related to microembolization with development of transient third-degree AV block and cardiogenic shock for which intra-aortic balloon pump placement and transvenous placement was performed. Given the underlying PAD, he also underwent right external iliac artery BUSINESS PROGRAMMER, on temporary dopamine use. He is being admitted to intensive care unit for further monitoring. Currently, his chest discomfort has decreased to 2/10. He denies any shortness of breath. Blood pressure is stable on intra-aortic balloon pump 1:1 without dopamine, which has been now weaned off. Transvenous pacemaker is left in place, however, he is not currently requiring pacing. REVIEW OF SYSTEMS: A 12-system review negative except for as noted above. PAST MEDICAL HISTORY: Remarkable for CKD, CVA, hypertension, and dyslipidemia. FAMILY HISTORY: Remarkable for hypertension. SOCIAL HISTORY: Smoker, recently quit. Denies drug or alcohol use. ALLERGIES: NO KNOWN DRUG ALLERGIES. PHYSICAL EXAMINATION: VITAL SIGNS: Blood pressure 133/110, heart rate 107, on telemetry sinus tachycardia, and respiratory rate 24. GENERAL: In no acute distress. Alert. Active. NECK: JVD distended, supple. CHEST: With bibasilar rales. CARDIOVASCULAR: Regular rate and rhythm. Normal S1 and S2. Intra-aortic balloon pump sounds. ABDOMEN: Soft. Bowel sounds positive. EXTREMITIES: No edema. Warm distal extremities. Abnormal pedal pulses. CARDIOVASCULAR MEDICATIONS: Reviewed. Aspirin, clopidogrel, statin, Integrilin, heparin drip. STUDIES: Reviewed. White cell 7, hemoglobin 16, and platelets 213. INR 0.8, PT 12, and PTT 31. Sodium 137, potassium 4.9, chloride 102, bicarbonate 27, BUN 37, creatinine 2.2, and glucose 245. AST 13 and ALT 18. Triglycerides 277, total cholesterol 179, LDL 96, and HDL 28. COVID-19 nondetected. ASSESSMENT AND PLAN: A 54-year-old man presents with cardiogenic shock, transient third-degree AV block in the setting of reperfusion injury, status post drug-eluting stent PCI, [id number] severe systolic heart failure, LVEF 20% to 25%, outpatient documented episodes of nonsustained ventricular tachycardia, hypertension, dyslipidemia, history of CVA, morbid obesity, peripheral arterial disease, status post right external iliac artery BUSINESS PROGRAMMER for intra-aortic balloon pump placement. RECOMMEND: Overnight observation on heparin and Integrilin, intra-aortic balloon pump 1:1. Continue to await on telemetry monitoring response from third-degree AV block seems to have recovered. Transvenous pacemaker left in place, however, EP consultation for second opinion. Continue rest of cardiovascular medications, ICU team consultation. Philip Barclay MD AFV/MODL /[id number]
--- NOTE | 2020-01-21 10:51 | Operative Report ---
DATE OF PROCEDURE: 01/21/2020 SURGEON: Philip Barclay MD PROCEDURE: Intra-aortic balloon pump removal. PROCEDURE COMPLICATIONS: None. ESTIMATED BLOOD LOSS: Less than 15 mL. PROCEDURE INDICATION: The patient with cardiogenic shock now with hemodynamic improvement. Intra-aortic balloon pump had been discontinued. PROCEDURES PERFORMED: Intra-aortic balloon pump removal and manual pressure hemostasis as well as transvenous pacemaker removal and manual hemostasis. PROCEDURE SUMMARY: After consent was obtained, the patient was prepped and draped in a sterile fashion. The site was prepped and sutures removed. Intra-aortic balloon pump previously had been weaned to confirm hemodynamic tolerance and balloon pump was placed on standby and retrieved along with 8-Mosotho sheath. Manual pressure hemostasis was applied. After this, the transvenous pacemaker was removed and thereafter, 6-Mosotho venous sheath was removed and pressure hemostasis was applied, achieving no complications observed immediately and adequate stable persistent hemodynamics. CONCLUSION: Successful removal of intra-aortic balloon pump and transvenous pacemaker. The patient remaining in sinus rhythm and with normal hemodynamics. No change in angina. Philip Barclay MD AFV/MODL /[id number]
--- NOTE | 2020-01-21 11:26 | Operative Report ---
DATE OF PROCEDURE: 01/20/2020 SURGEON: Philip Barclay MD PROCEDURE INDICATION: Ventricular tachycardia, severe systolic heart failure, angina pectoris, unstable. PROCEDURES PERFORMED: 1. Left heart catheterization. 2. Selective coronary angiography. 3. RCA drug-eluting stent PCI. 4. Attempted and aborted intravascular ultrasound due to equipment malfunction. 5. Transvenous pacemaker implantation. 6. Intra-aortic balloon pump implantation. 7. Critical care time optimizing dopamine therapy for cardiogenic shock. 8. Right external iliac artery STRATEGY MANAGER with a 6 x 40 balloon. 9. Ultrasound-guided access. 10. Moderate sedation. 11. Catheter placement in the aorta and abdominal aortogram. RCA drug-eluting stent PCI. PROCEDURE COMPLICATIONS: The patient developed post stent placement slow flow related to suspected distal microembolization underperfusion injury, cardiogenic shock, third-degree AV block. ESTIMATED BLOOD LOSS: Less than 15 mL. PROCEDURE SUMMARY: After consent was obtained, the patient was prepped and draped in a sterile fashion. The right radial site was locally infiltrated with 2% lidocaine and access was obtained. At the end of the procedure TR band was applied to this site. PIC catheter was used for engagement of left main right coronary artery and to cross the aortic valve. Pigtail catheter was used for performing a left ventriculogram. The following findings were noted: 1. LV pressure is 130/10 with end-diastolic pressure of 41. 2. Aortic pressure was 130/110. 3. LV-gram reveals severe global hypokinesis with LVEF 20% to 25%. 4. The left main large in caliber with luminal irregularities gives an LAD and a circumflex. 5. The LAD proximal has 30% stenosis, gives a septal senior economist and diagonal. The mid LAD has less than 30% stenosis and the 2nd diagonal has 50% focal stenosis. It is small in caliber. The LAD continues with luminal irregularities up to the apical portion. When it wraps around, there is a focal area of 70% stenosis. This is very distal and small in caliber. 6. The circumflex is large in caliber with two tandem lesions of 30% and 40%, gives two small obtuse marginals and medium caliber, third obtuse marginal and left posterolateral branch. 7. The right coronary artery is dominant, 30% proximal, 80% bulky mid tubular stenosis, which was a target lesion and gives a terminal RPDA and RPLV. INTERVENTION: It was decided to proceed with intervention using a heparin to maintain an ACT over 250, aspirin 325 and Plavix 600 mg loading. A JR4 guide catheter, a Runthrough wire to cross the area of stenosis and predilatation was performed with a 3 x 12 Emerge balloon to nominal pressures. This was followed by Synergy 4 x 28 drug-eluting stent deployed to 18 atmospheres and post stent deployment. It was felt that the stent struts remained somewhat unapposed, underexpanded given large caliber RCA vessel. It was decided to proceed with NC Quantum inflation 5 x 15 mm post-dilating to nominal pressure. Post-procedure, a ASHLEY flow was too no flow limiting dissections or perforations were observed, less than 10% residual stenosis, strut apposition and expansion. The patient developed transient ST elevations, development of chest pain, shortness of breath, tachycardia, and hemodynamic instability with hypotension, and a third-degree AV block. This was felt related to slow flow phenomenon for which adenosine was administered intracoronary on several occasions. Access was obtained with ultrasound guidance to the right common femoral vein and right common femoral artery. Angiography was performed of the iliac vessels revealing severe stenosis. A JR4 catheter was advanced to the mid aorta and angiography to left iliac limb was also performed revealing stenosis bilaterally. It was therefore decided to proceed with STRATEGY MANAGER with a 6 x 40 balloon to an 80% area of stenosis of the right external iliac artery. Post-intervention, no dissections or perforations with less than 20% stenosis ASHLEY-3 flow. This allowed an implant of intra-aortic balloon pump, which was confirmed to be in adequate position one-to-one augmentation sutured in place. Transvenous pacemaker was similarly implanted via the right common femoral vein and thresholds confirmed to be output, at 0.5, therefore 5 mV and 80 pacing rate was left. I performed intravascular ultrasound to the right coronary artery was performed. However, the catheter equipment imaging was not functioning in spite of attempts to correct this. It remained not working and therefore attempt was aborted. Of note repeated angiography reveals significant improvement in ASHLEY flow to ASHLEY-3 without any evidence of dissections or perforation to be and heparin was initiated. The patient was transferred to ICU for further care with improvement in symptoms and ST changes on EKG with chest discomfort /10 at the end of the procedure, down from 04/09. Findings of the iliacs reveal right external iliac artery 80% stenosis 50% stenosis of both common iliac arteries, 80% stenosis of the left external iliac artery, and 70% focal stenosis of the left internal iliac artery, and less than 50% stenosis of the right internal iliac artery. Post intervention of the right external iliac artery was less than 20% stenosis. CONCLUSION: A drug-eluting stent PCI of RCA in a patient with severe systolic heart failure, complicated with slow flow of transient third-degree AV block, cardiogenic shock transfer to ICU for further care, aspirin and Plavix, continue heparin and Integrilin overnight. MD LIBBY Nice/KAIL /[id number]
--- NOTE | 2020-01-21 11:56 | Progress Note ---
DATE: 01/21/2020 Cardiology Progress Note SUBJECTIVE: Jono denies any chest pain or shortness of breath. On telemetry, in sinus rhythm with occasional episodes of sinus tachycardia and rare PVCs. OBJECTIVE: VITAL SIGNS: Temperature 97.7, heart rate 94, blood pressure 136/85, respiratory rate 33, O2 saturation 94%, and BMI 34. GENERAL: No acute distress, alert. NECK: Supple. CHEST: Clear to auscultation. CARDIOVASCULAR: Regular rate and rhythm. Normal S1, S2. Intra-aortic balloon pump sounds. ABDOMEN: Soft. Bowel sounds positive. EXTREMITIES: No edema. CARDIOVASCULAR MEDICATIONS: Reviewed. Atorvastatin 80 mg at bedtime, aspirin 81 mg daily, furosemide 40 mg IV b.i.d., heparin IV drip has been discontinued, intraaortic balloon pump has been discontinued, and clopidogrel 75 mg daily. STUDIES: Reviewed. Creatinine 2. White blood cells 12, hemoglobin 16, and platelets 227. INR 0.9. AST 127, ALT 27. ASSESSMENT AND PLAN: A 54-year-old man presents with unstable angina and episodes of nonsustained ventricular tachycardia, acute systolic heart failure, left ventricular ejection fraction 20-25% on left ventriculogram, status post right coronary artery drug-eluting stent percutaneous coronary intervention, postoperative third-degree atrioventricular block transient, status post transvenous pacemaker implant and cardiogenic shock status post intraaortic balloon pump placement with good recovery. PLAN: Discontinue transvenous pacemaker and intra-aortic balloon pump. Continue supportive care. Initiate beta-marya therapy starting this evening. LifeVest has been ordered after discussions with the patient. Monitor overnight in hospital. Possible discharge tomorrow if evolves well and once fitted for LifeVest. Philip Barclay MD AFV/MODL /[id number]
--- NOTE | 2020-01-21 16:55 | Progress Note ---
DATE: SUBJECTIVE: The patient had the aortic balloon pump removed today. He is awaiting LifeVest tomorrow. PHYSICAL EXAMINATION: VITAL SIGNS: Blood pressure is 136/93, saturation is 94% on 4 L. HEENT: No facial swelling or erythema. CARDIAC: Regular rate and rhythm with normal S1, S2. LUNGS: Auscultation of lungs reveals crackles at bases. There is no wheezing. ABDOMEN: Soft, nontender. There is no rebound or guarding. EXTREMITIES: No leg edema or calf tenderness. There is no cyanosis or clubbing. SKIN: No rashes. NEUROLOGICAL: No focal abnormalities. LABORATORY DATA: White blood cell count 12.8, and hemoglobin is 16.7. The platelet count is 227. The BUN to creatinine ratio is 39-2 and the other electrolytes are within normal limits. IMPRESSION: 1. Cardiogenic shock requiring intra-aortic balloon pump. 2. Transient third-degree heart block. 3. Systolic cardiomyopathy. 4. Chronic renal failure stage 3. 5. Diabetes. PLAN: 1. Continue current cardiac regimen. 2. Await LifeVest tomorrow. 3. Possible discharge home after setting up LifeVest. MD COLE Becker/KALPESH /[id number]
[2020-01-21] MEDS: CARVEDILOL 3.125 MG TAB PO SCH (17:44)
[2020-01-22] VITALS (23 sets, daily range): BP systolic 109–153; BP diastolic 70–101
[2020-01-22] MEDS: SODIUM CHLORIDE 0.9% 1000ML 1,000 ML IV SCH (06:40)
[2020-01-22] MEDS: ASPIRIN 81 MG CHEW TAB PO SCH (08:54)
[2020-01-22] MEDS: FUROSEMIDE INJ 10 MG/ML 4 ML VIAL IV SCH ×2 (08:55→09:00)
[2020-01-22] MEDS: CARVEDILOL 3.125 MG TAB PO SCH ×2 (08:55→17:03)
[2020-01-22] MEDS: CLOPIDOGREL BISULFATE 75 MG TAB PO SCH (08:55)
[2020-01-22] MEDS: ATORVASTATIN 40 MG TAB PO SCH (08:55)
[2020-01-22 09:48] LABS: ANION GAP 13.4 mmol/L (8-16); CALCIUM 8.7 mg/dL (8.4-10.2); CREATININE, SERUM 2.19 mg/dL (0.72-1.25); MAGNESIUM 1.9 MG/DL (1.3-2.1); POTASSIUM 5.4 mmol/L (3.5-5.1)
[2020-01-22] MEDS: HYDROCODONE/APAP 5MG-325MG TAB PO PRN (14:42)
--- NOTE | 2020-01-22 19:21 | Discharge Summary ---
ADMISSION DIAGNOSES: 1. Admission for acute on chronic severe systolic heart failure and cardiogenic shock. 2. Third-degree AV block. 3. Coronary artery disease, status post RCA drug-eluting stent, PCI. 4. Cerebrovascular accident, history of. 5. Chronic obstructive pulmonary disease, suspected. 6. Hypertension and dyslipidemia. 7. Peripheral arterial disease, status post right external iliac artery PHOTO TECH. DISCHARGE DIAGNOSES: 1. Resolved third-degree AV block. 2. Resolved cardiogenic shock and improved systolic heart failure. 3. Coronary artery disease, status post drug-eluting stent PCI to RCA. 4. Coronary artery disease, status post 3 PHOTO TECH. 5. Cerebrovascular accident. 6. History of hypertension. 7. Dyslipidemia. 8. Morbid obesity. 9. Chronic kidney disease. CONDITION UPON DISCHARGE: Fair, improved. DISPOSITION: Discharged to home for self-care with outpatient followup with Dr. Philip Burger, Cardiology in one week and with primary care physician in 2 weeks as well as with Nephrology as outpatient in 4 weeks. MEDICATIONS UPON DISCHARGE: Please see medication reconciliation form. Of note, not on JEREMIAS inhibitor or ARB due to underlying chronic kidney disease and elevated potassium levels. On beta-marya, aspirin, clopidogrel and statin upon discharge. HOSPITALIZATION SUMMARY: The patient underwent RCA drug-eluting stent PCI with slow flow. This was transient post PCI leading to transient third-degree AV block and decompensation cardiogenic shock requiring short-term dopamine use and intra-aortic balloon pump support over IIb, IIIa and heparin evening administrations. Symptoms resolved. Balloon pump and transvenous pacemaker were discontinued. The patient observed for additional 24 hours with resolution of symptoms, saturating well at room air without any recurrence of angina and with persistence of normal sinus rhythm on telemetry. The patient is being discharged home after being fitted for LifeVest which has been ordered for the patient's nonsustained ventricular tachycardia episodes occurring and documented as outpatient as well as his severe systolic heart failure, LVEF 20% to 25%, and ischemic heart disease. PHYSICAL EXAMINATION: VITAL SIGNS: Temperature 98.5, heart rate 81, sinus rhythm on telemetry, respiratory rate 18, blood pressure 119/85, O2 saturation 98% on room air. GENERAL: No acute distress. Alert. NECK: No JVD. CHEST: Clear to auscultation. CARDIOVASCULAR: Regular rate and rhythm. Normal S1, S2. No S3 or S4. ABDOMEN: Soft. Bowel sounds positive. EXTREMITIES: Trace edema, warm distal extremities. CARDIOVASCULAR MEDICATIONS: Reviewed. STUDIES: Reviewed. ALT 27, sodium 137, creatinine 2.19, LDL 117, HDL 30, triglycerides 314, glucose 219. MD LackeyV/MODL /[id number]
--- NOTE | 2020-01-22 19:27 | NUR ---
Zack with [facility] contacted about patient needing lifevest prior to discharge. Zack stated they will try to fit patient for device this afternoon. Dr. Hector navarro and Dr. Burger notified patient has no IV access (L hand PIV leaking) MD's stated this fine only give oral medications at this time. Dr. Burger aware of critical potassium. Potassium ordered to be recheck. Orders given to transfer patient to medical surgical floor with telemetry.
--- NOTE | 2020-01-23 00:02 | Progress Note ---
DATE: 01/22/2020 Cardiology Progress Note SUBJECTIVE: The patient denies any chest pain or shortness of breath. OBJECTIVE: VITAL SIGNS: Blood pressure 115/79 mmHg, heart rate 83 beats per minute, respiratory rate 18, oxygen saturation 94%, and he is afebrile. GENERAL: No acute distress. He is awake and alert. NECK: Supple. LUNGS: Clear to auscultation. CARDIOVASCULAR: Shows regular rate and rhythm. Normal S1 and S2. ABDOMEN: Soft with bowel sounds being present. EXTREMITIES: No leg edema. CARDIOVASCULAR MEDICATIONS: Reviewed. LABORATORY DATA: Studies also reviewed. The patient had potassium that was elevated this morning. On repeat, it was normal at 4.8. ASSESSMENT: A 54-year-old man, who had presented with unstable angina and episodes of nonsustained ventricular tachycardia, acute systolic heart failure, left ventricular ejection fraction of 20% to 25% on left ventriculogram. The patient is status post right coronary artery drug-eluting stent, postoperative third-degree AV block that was transient, status post transvenous pacemaker implantation and also cardiogenic shock status, treated with intra-aortic balloon pump placement. PLAN: The patient was to be discharged today once his LifeVest was available. A LifeVest was expected this afternoon, but it never came. The patient's discharge is on hold pending arrival of the LifeVest. If the LifeVest is available tomorrow, the patient will be discharged home at that time. MD JERRELL Mclaughlin/KALPESH /[id number]
[2020-01-23 04:00] VITALS: BP 114/86
--- NOTE | 2020-01-23 07:41 | NUR ---
ASSUMED CARE. AAOX3. ACYANOTIC. RESTING IN BED. NO DISTRESS NOTED. CALL LIGHT IN REACH. SIDE RAILS UP X2. BED LOW AND LOCKED.
--- NOTE | 2020-01-23 07:49 | NUR ---
REPORT GIVEN TO DAYSHIFT NURSE. ALERT AND ORIENTED . NO SIGNS IV INFILTRATION. BED LOCKED AND IN LOW POSITION. CALL LIGHT WITHIN REACH. BED ALARM ACTIVATED.
[2020-01-23 08:00] VITALS: BP 136/95
[2020-01-23] MEDS: ATORVASTATIN 40 MG TAB PO SCH (08:24)
[2020-01-23] MEDS: ASPIRIN 81 MG CHEW TAB PO SCH (08:24)
[2020-01-23] MEDS: CLOPIDOGREL BISULFATE 75 MG TAB PO SCH (08:24)
[2020-01-23] MEDS: CARVEDILOL 3.125 MG TAB PO SCH ×2 (08:25→17:06)
[2020-01-23 08:52] VITALS: BP 136/95
[2020-01-23 12:24] VITALS: BP 116/82
--- NOTE | 2020-01-23 14:14 | Progress Note ---
DATE: Cardiology Clarification Note Mr. Mariscal has severe systolic heart failure, acute on chronic; dilated cardiomyopathy as noted on left ventriculogram with global severe hypokinesis, level of systolic heart failure and wall motion abnormalities are out of proportion of level of documented ischemic CAD. Therefore, there is a predominant dilated nonischemic cardiomyopathy, coupled with underlying coronary artery disease. He also has had documented ventricular tachycardia as outpatient. He, in my opinion, meets criteria for LifeVest, which has been prescribed. Phliip Barclay MD AFV/MODL /[id number]
[2020-01-23 17:00] VITALS: BP 112/98
--- NOTE | 2020-01-23 18:20 | Progress Note ---
DATE: 01/23/2020 Cardiology Progress Note SUBJECTIVE: The patient denies chest pain or shortness of breath. He is walking inside the room without problems. He feels much improved. OBJECTIVE: VITAL SIGNS: Show a blood pressure of 112/88 mmHg, heart rate of 91, temperature 98.1, and pulse oximetry 95% on 2 L/minute nasal cannula. GENERAL: He is in no acute distress. He is awake, alert, and conversational. NECK: Supple, the carotids are 2+ bilaterally. No bruits heard. LUNGS: Clear to auscultation. CARDIOVASCULAR: Regular rate and rhythm. Normal S1 and S2. No murmurs heard. ABDOMEN: Soft, not tender. EXTREMITIES: Trace leg edema. CARDIOVASCULAR MEDICATIONS: Were reviewed. LAB DATA: No additional lab data available. ASSESSMENT: A 54-year-old man who had presented with unstable angina and episodes of nonsustained ventricular tachycardia, acute systolic heart failure, left ventricular ejection fraction of 20% to 25 % on left ventriculogram. The patient is status post right coronary artery drug-eluting stent, postoperative third-degree AV block that was transient, status post transvenous pacemaker implantation and also cardiogenic shock treated with intra-aortic balloon pump. The patient was expected to be discharged yesterday once the LifeVest was available. There was delay in the LifeVest due to insurance problems. The insurance required additional information that was provided today. We expect the patient to receive the LifeVest by Saturday. The patient has been informed of this. So, the patient is discharged home until the LifeVest is available. MD JERRELL Mclaughlin/MODL /[id number]
[2020-01-23 20:00] VITALS: BP 132/91
[2020-01-24] VITALS: BP_SYST 125
[2020-01-24 04:00] VITALS: BP 146/83
--- NOTE | 2020-01-24 07:20 | NUR ---
REPORT GIVEN TO DAYSHIFT NURSE. RESTING IN BED. ALERT AND ORIENTED. NO SIGNS IV INFILTRATION. BED LOCKED AND IN LOW POSITION. CALL LIGHT WITHIN REACH. BED ALARM ACTIVATED.
[2020-01-24 08:00] VITALS: BP 111/83
[2020-01-24 09:07] VITALS: BP 111/83
[2020-01-24] MEDS: CLOPIDOGREL BISULFATE 75 MG TAB PO SCH (10:21)
[2020-01-24] MEDS: ATORVASTATIN 40 MG TAB PO SCH (10:21)
[2020-01-24] MEDS: ASPIRIN 81 MG CHEW TAB PO SCH (10:21)
[2020-01-24] MEDS: CARVEDILOL 3.125 MG TAB PO SCH (10:21)
[2020-01-24 11:54] VITALS: BP 132/92
--- NOTE | 2020-01-24 13:40 | NUR ---
DIRECTOR [employer] CALLED TO NOTIFY NURSE THAT PATIENT IS OFF MONITOR. CHARGE NURSE WENT IN TO ROOM TO ASK PATIENT IF SHE COULD PUT TELE BACK ON. PATIENT STATED "I HAVE A LIFE [facility] THAT'S MONITORING MY HEART. I DON'T NEED THAT" CHARGE NURSE EXPLAINED TO PATIENT THAT THE REASON WHY WE WOULD LIKE FOR HIS TELE TO BE ON IS BECAUSE THAT WAY WE CAN MONITOR HIS HEART DUE TO STAFF NOT BEING ABLE TO CLOSE MONITOR WITH LIFE [facility]. PATIENT STATED "I DON'T GIVE A , I'M NOT PUTTING IT BACK ON." CHARGE NURSE WALKED OUT OF ROOM WITH TELE BOX AND RETURNED TO [employer].
--- OUTSIDE RECORDS SUMMARY | 2020-01-29 14:48 | XMS REPORT | Clinical Summary ---
Author Author [facility] Organization [facility] Address Unknown Phone Unavailable Care Team Providers Care Manager Parking Name Role Phone Asked, No Pcp PCP Unavailable Allergies No Known Allergies Medications End Date Status Medication Sig Dispensed Refills Start Date Active losartan-hydrochlorothiaz 0 pham (HYZAAR) 100-12.5 mg 8 per tablet Active lovastatin (MEVACOR) 40 0 MG tablet 8 Active glyBURIDE (DIABETA) 5 MG Take 5 mg by 0 tablet mouth 2 (two) times a day with meals. Active Problems Problem Noted Date Peripheral vascular disease 03/10/2018 Overview: [id number] Atherosclerosis of [place] artery of left lower extrem ity with intermittent 03/10/2018 claudication Overview: Added automatically from [facility] [id number] Family History Medical History Relation Name Comments Cancer Mother Heart disease Mother Hypertension Mother Relation Name Status Comments Father Mother Social History Date Tobacco Use Types Packs/Day Years Used Current Every Day Smoker Cigarettes 1.5 30 Smokeless Tobacco: Never Used Tobacco Cessation: Ready to Quit: No; Co unseling Given: Yes Drinks/Week oz/Week Comments Alcohol Use No Sex Assigned at Date Recorded Not on file Industry Job Start Date Occupation Not on file Not on file Not on file Travel End Travel History Travel Start No recent travel history available. Last Filed Vital Signs Not on file Plan of Treatment Health Maintenance Due Date Last Done Comments COLONOSCOPY SCREENING 2016 SHINGLES VACCINES (#1) 2016 INFLUENZA VACCINE 01/30/2020 Implants Device Identifier Shelf Expiration Date Model / Serial / L ot Implanted Type Area Manufactur er 01/29/2020 [id number] / / [id number] Device Vasclr Clsr Baln Cath 10ml Cardiovasc Right: Groin CARDINAL Lkng Syr 6fr 7fr Mynxgrip - ular [employer] [id number] Implants Implanted: Qty: 1 on 03/21/[address] Smiley MD at [facility] 06/18/2019 [id number] / / [id number] Stent [employer] Eluted 6fr 6 X Surgical Left: Leg COOK 120mm .035in - [id number] Stents PERIPHERAL Implanted: Qty: 1 on 03/21/[address] Correa MD at [facility] 04/10/2019 [id number] / / [id number] Stent [employer] Eluted 6fr 7 X Surgical Left: Leg COOK 120mm .035in - [id number] Stents PERIPHERAL Implanted: Qty: 1 on 03/21/[address] Correa MD at [facility] 04/10/2019 [id number] / / [id number] Stent [employer] Eluted 6fr 7 X Surgical Left: Leg COOK 120mm .035in - [id number] Stents PERIPHERAL Implanted: Qty: 1 on 03/21/[address] Correa MD at [facility] 05/13/2019 [id number] / / [id number] Stent [employer] Eluted 6fr 7 X Surgical Left: Leg COOK 120mm .035in - [id number] Stents PERIPHERAL Implanted: Qty: 1 on 03/21/[address] Correa MD at [facility] Results Not on fileafter 01/19/2019 Insurance Type Payer Benefit Subscriber ID Effective Phone Address Plan / Dates Group O CIGNA CIGNA OPEN xxxxxxxxxxx 2017-P ACCESS/NET resent WORK Advance Directives For more information, please contact: [phone] Patient Control Systems Specialist Explanation Type Date Recorded Advance Directives, 03/19/2018 3:18 PM Living Will and Medical Power of Sales Support Advisor
--- OUTSIDE RECORDS SUMMARY | 2020-01-29 14:48 | XMS REPORT | Continuity of Care Document ---
Author Author [facility] t Organization [facility] Address [address] [place] [address] Phone Unavailable Care Team Providers Care Oyster Worker Name Role Phone GWENDOLYN RIZZO, MD Sapna SNIDER PCP NICHOLAS CEDENO, Sukhi TAMELA Attphys Unavailable BYRD, A FRANCIS Attphys Unavailable NICHOLAS CEDENO, Sukhi TAMELA Admphys Unavailable BYRD, A FRANCIS Admphys Unavailable Payers Payer Name Policy Type Policy Number Effective Date Expiration Date Sherri lizarr[employer] [id number] 2005 00:00:00 [facility] Cdc Review Covid19 [id number] [facility] [id number] 2017 00:00:00 [facility] Problems Condition Name Condition Details Condition Category Status Onset Date Resolution Date Last Treatment Date Treating Clinician Comments Source Peripheral vascular disease Peripheral vascular disease Disease Active 2018-03-10 00:00:00 Overview: Ad ded automatically from request for surgery [id number] [facility] Atherosclerosis of ute artery of left lower extremity with intermittent claudication Atherosclerosis of ute artery of left lower extremity with intermittent claudication Disease Active 2018-03-10 00:00:00 Overview: Added automatically from request for surgery [id number] Jose David Carpenter Acute renal failure Acute renal failure Problem Active [facility] Embolic infarction Embolic infarction Problem Active [facility] Allergies, Adverse Reactions, Alerts This patient has no known allergies or adverse reactions. Family History Family Member Diagnosis Comments Start Date Stop Date Source Natural mother Cancer [facility] Natural mother Heart disease [facility] Natural mother Hypertension [facility] Social History Social Habit Start Date Stop Date Quantity Comments Source History of tobacco use Cigarette Smoker Jose David Carpenter Sex Assigned At Emanuel Carpenter Cigarettes smoked current (pack per day) - Reported 00:00:00 2018-03-24 00:00:00 Jose David Carpenter Cigarette pack-years 2018-03-24 00:00:00 2018-03-24 00:00:00 Jose David Carpenter Alcohol intake 2018-03-24 00:00:00 2018-03-24 00:00:00 Current non-drinker of alcohol (finding) Jose David Carpenter Smoking Status Start Date Stop Date Source Current every day smoker 2018-03-24 00:00:00 Emanuel Carpenter Medications Ordered Medication Name Filled Medication Name Start Date Stop Da te Current Medication? Ordering Clinician Indication Dosage Frequency Signature (SIG) Comments Components Source Albuterol Sulfate (Proair Hfa Inhaler*) 8.5 Gm INH Alb uterol Sulfate (Proair Hfa Inhaler*) 8.5 Gm INH 2019-09-03 10:54:00 2020-01-20 00:00:00 No 2 Every 4 Hours as needed for Shortness Of Breath [facility] Glycopyrrolate/Formoterol Fum (Bevespi Aerosphere Inha ler) 10.7 Gm HFA.AER.AD Glycopyrrolate/Formoterol Fum (Bevespi Aerosphere Inhaler) 10.7 Gm HFA.AER.AD 2019-09-03 10:54:00 2020-01-20 00:00:00 No 2 Twice A Day [facility] glyBURIDE (DIABETA) 5 MG tablet 2018-03-22 12:40:09 Yes 5mg Q.5D Take 5 mg by mouth 2 (two) times a day with meals. Jose David Carpenter losartan-hydrochlorothiazide (HYZAAR) 100-12.5 mg per tablet 2018-02-12 00:00:00 Yes Jose David Carpenter lovastatin (MEVACOR) 40 MG tablet 2018-02-12 00:00:00 Yes Jose David Carpenter Clopidogrel Bisulfate (Clopidogrel) 75 Mg TABLET Clopi dogrel Bisulfate (Clopidogrel) 75 Mg TABLET Yes 75 Daily [facility] Furosemide (Lasix) 20 Mg TABLET Furosemide (Lasix) 20 Mg TABLET Yes 20 Daily for Fluid Reduction [facility] Insulin Degludec (Tresiba) 100 Unit/1 Ml VIAL Insulin Degludec (Tresiba) 100 Unit/1 Ml VIAL Yes 30 Daily [facility] Lovastatin Lovastatin Yes 40 Daily I [facility] Metoprolol Succinate Metoprolol Succinate Yes 25 Daily [facility] Amlodipine Besylate Amlodipine Besylate 2020-01-20 00:00:00 No 10 Daily [facility] Glimepiride Glimepiride 2020-01-20 00:00:00 No 4 T wice A Day [facility] Insulin Regular, Human (Humulin R) 100 Unit/1 Ml VIAL Insulin Regular, Human (Humulin R) 100 Unit/1 Ml VIAL 2019-09-03 00:00:00 No [facility] Losartan/Hydrochlorothiazide (Losartan-Hctz 100-12.5 M g Tab) 1 Each TABLET Losartan/Hydrochlorothiazide (Losartan-Hctz 100-12.5 Mg Tab) 1 Each TABLET 2019-09-03 00:00:00 [facility] Lovastatin Lovastatin 2019-09-03 00:00:00 [facility] Amoxicillin/Potassium Clav (Augmentin 875-125 Tablet) 1 Each TABLET Amoxicillin/Potassium Clav (Augmentin 875-125 Tablet) 1 Each TABLET 2019-09-01 00:00:00 No 875 Twice A Day [facility] Vital Signs Vital Name Observation Time Observation Value Comments Source Body Temperature 2020-01-24 11:54:00 98.4 [degF] [facility] BMI (Body Mass Index) 2020-01-24 00:23:00 34.2 kg/m2 [facility] Weight 2020-01-15 14:30:00 245 [lb_av] [facility] Procedures Procedure Date / Time Performed Performing Clinician Jaziel plata Magnetic resonance imaging of brain without contrast 2019-08 00:00:00 MARIA E HENRIQUEZ [facility] Magnetic resonance angiography of neck without contrast 2019 00:00:00 MARIA E HENRIQUEZ [facility] Computed tomography of brain without radiopaque contrast 00:00:00 BRODY RICHARDS [facility] Plan of Care Planned Activity Planned Date Details Comments Source Future Scheduled Test 2020-01-30 00:00:00 INFLUENZA VACCINE [code = INFLUENZA VACCINE] [facility] Future Scheduled Test 2016 00:00:00 COLONOSCOPY SCREEN ING [code = COLONOSCOPY SCREENING] [facility] Future Scheduled Test 2016 00:00:00 SHINGLES VACCINES (#1) [code = SHINGLES VACCINES (#1)] [facility] Instructions How to Take Your Blood Pressure [facility] Instructions Cardiac Disease Risk Factors [facility] Instructions Heart Healthy Diet [facility] Instructions How to Take Your Pulse [facility] Encounters Start Date/Time End Date/Time Encounter Type [facility] ID Source 2020-01-20 12:20:00 2020-01-24 14:52:00 Discharged Inpatient [facility] [id number] [facility] 2019-09-01 00:03:00 2019-09-03 15:45:00 Discharged Inpatient 1 TAMELA CALDERA [facility] [id number] I [facility] 2018-09-05 19:27:00 2018-09-07 18:34:00 Discharged Inpatient 1 FRANCIS [facility] [id number] [facility] Results Test Description Test Time Test Comments Results Result Comments Source Capillary blood glucose measurement by glucometer (mas s/volume) 2020-01-23 11:29:00 Test Item Bedside Glucose (test code = 66870-7) 113 70-120 Meter ID: [id number] or plasma potassium measurement (moles/volume)2020-01-22 16:55:00* Test Item Value Reference Range Interpretation Comments Potassium Level (test code = 2823-3) 4.8 3.5-5.1 [facility] sodium [facility] (moles/volume)2020-01-22 09:20:00* Test Item Value Reference Range Interpretation Comments Sodium Level (test code = 2951-2) 137 136-145 [facility] chloride measurement (moles/volume)2020-01-22 09:20:00* Test Item Value Reference Range Interpretation Comments Chloride Level (test code = 2075-0) 100 98-107 [facility] carbon dioxide, total measurement (moles/volume)2020-01-22 09:20:00* Test Item Value Reference Range Interpretation Comments Carbon Dioxide Level (test code = 2028-9) 29 22-29 [facility] anion [id number] 09:20:00* Test Item Value Reference Range Interpretation Comments Anion Gap (test code = 46805-3) 13.4 8-16 [facility] urea nitrogen measurement (mass/volume)2020-01-22 09:20:00* Test Item Value Reference Range Interpretation Comments Blood Urea Nitrogen (test code = 3094-0) 41 7-26 [facility] creatinine measurement (mass/volume)2020-01-22 09:20:00* Test Item Value Reference Range Interpretation Comments Creatinine (test code = 2160-0) 2.19 0.72-1.25 [facility] plasma urea nitrogen/creatinine mass [id number] 09:20:00* Test Item Value Reference Range Interpretation Comments BUN/Creatinine Ratio (test code = 3097-3) 19 6-25 [facility]ated glomerular filtration rate (GFR) nrmtfqiutldxs2502-21-14 09:20:00* Test Item Value Reference Range Interpretation Comments Estimat Glomerular Filtration Rate (test code = 349386438) 32 >60 Ranges were taken from the National Kidney Disease Education Program and the [facility] Foundation literature.Reference ranges:60 or greater: Zyhkka10-24 ( for 3 consecutive months): Chronic kidney disease 15 or less: Kidney failureAscension Seton Medical Center AustinGlucose baolgwjskqx0505-79-57 09:20:00* Test Item Value Reference Range Interpretation Comments Glucose Level (test code = CFR9775) 209 74-118 [facility] calcium measurement (mass/volume)2020-01-22 09:20:00* Test Item Value Reference Range Interpretation Comments Calcium Level (test code = 89569-9) 8.7 8.4-10.2 [facility] plasma magnesium measurement (mass/volume)2020-01-22 09:20:00* Test Item Value Reference Range Interpretation Comments Magnesium Level (test code = 64477-7) 1.9 1.3-2.1 [facility] AustinBlood leukocytes automated count (number/volume)2020-01-21 02:59:00* Test Item Value Reference Range Interpretation Comments White Blood Count (test code = 6690-2) 12.81 4.8-10.8 [facility] AustinBlood erythrocytes automated count (number/volume)2020-01-21 02:59:00* Test Item Value Reference Range Interpretation Comments Red Blood Count (test code = 789-8) 6.38 4.3-5.7 [facility] AustinBlood hemoglobin measurement (moles/volume)2020-01-21 02:59:00* Test Item Value Reference Range Interpretation Comments Hemoglobin (test code = 80858-3) 16.7 14.0-18.0 [facility] AustinAutomated blood hematocrit (volume fraction)2020-01-21 02:59:00* Test Item Value Reference Range Interpretation Comments Hematocrit (test code = 4544-3) 54.9 38.2-49.6 [facility] AustinAutomated erythrocyte mean corpuscular balrvl8627-53-38 02:59:00* Test Item Value Reference Range Interpretation Comments Mean Corpuscular Volume (test code = 787-2) 86.1 81-99 [facility] AustinAutomated erythrocyte mean corpuscular hemoglobin (mass per erythrocyte)2020-01-21 02:59:00* Test Item Value Reference Range Interpretation Comments Mean Corpuscular Hemoglobin (test code = 785-6) 26.2 28-32 [facility] AustinAutomated erythrocyte mean corpuscular hemoglobin concentration measurement (mass/volume)2020-01-21 02:59:00* Test Item Value Reference Range Interpretation Comments Mean Corpuscular Hemoglobin Concent (test code = 786-4) 30.4 31-35 [facility] AustinRDW XhyNh-Xqi2343-63-23 02:59:00* Test Item Value Reference Range Interpretation Comments Red Cell Distribution Width (test code = 94641-4) 16.7 11.7 -14.4 [facility] AustinAutomated blood platelet count (count/volume)2020-01-21 02:59:00* Test Item Value Reference Range Interpretation Comments Platelet Count (test code = 777-3) 227 140-360 [facility] AustinAutomated blood segmented neutrophil count as percentage of total imetwmfljq6832-50-03 02:59:00* Test Item Value Reference Range Interpretation Comments Neutrophils (%) (Auto) (test code = 10335-9) 84.7 38.7-80.0 [facility] AustinAutomated blood lymphocyte count as percentage ot total qvkmcaplul6185-70-78 02:59:00* Test Item Value Reference Range Interpretation Comments Lymphocytes (%) (Auto) (test code = 736-9) 7.6 18.0-39.1 [facility] AustinAutomated blood monocyte count as percentage of total sltmmwxkch1667-42-29 02:59:00* Test Item Value Reference Range Interpretation Comments Monocytes (%) (Auto) (test code = 5905-5) 5.8 4.4-11.3 [facility] AustinAutomated blood eosinophil count as percentage of total ovrrutolot7281-45-15 02:59:00* Test Item Value Reference Range Interpretation Comments Eosinophils (%) (Auto) (test code = 713-8) 0.7 0.0-6.0 [facility] AustinAutomated blood basophil count as percentage of total rnhlrdsbii3258-65-61 02:59:00* Test Item Value Reference Range Interpretation Comments Basophils (%) (Auto) (test code = 706-2) 0.4 0.0-1.0 [facility] AustinFluoroscopic procedure less than one hour vkgpuqwi4063-14-38 02:59:00* Test Item Value Reference Range Interpretation Comments IM GRANULOCYTES % (test code = IM GRANULOCYTES %) 0.8 0.0- 1.0 [facility] AustinAutomated blood neutrophil count 2020-01-21 02:59:00* Test Item Value Reference Range Interpretation Comments Neutrophils # (Auto) (test code = 751-8) 10.9 2.1-6.9 [facility] AustinBlood lymphocytes count (number/volume) 2020-01-21 02:59:00* Test Item Value Reference Range Interpretation Comments Lymphocytes # (Auto) (test code = 67038-8) 1.0 1.0-3.2 [facility] AustinBlood monocytes automated count (number/volume)2020-01-21 02:59:00* Test Item Value Reference Range Interpretation Comments Monocytes # (Auto) (test code = 742-7) 0.7 0.2-0.8 [facility] AustinAutomated blood eosinophil count 2020-01-21 02:59:00* Test Item Value Reference Range Interpretation Comments Eosinophils # (Auto) (test code = 711-2) 0.1 0.0-0.4 [facility] AustinAutomated blood basophil count (count/volume)2020-01-21 02:59:00* Test Item Value Reference Range Interpretation Comments Basophils # (Auto) (test code = 704-7) 0.1 0.0-0.1 [facility] AustinFluoroscopic procedure less than one hour zjvvmtbu0938-15-08 02:59:00* Test Item Value Reference Range Interpretation Comments Absolute Immature Granulocyte (auto (judie t code = Absolute Immature Granulocyte (auto) 0.10 0-0.1 [facility] AustinActivated partial thromboplastin time (aPTT) in platelet poor plasma by coagulation cqmcz1970-41-24 02:59:00* Test Item Value Reference Range Interpretation Comments Activated Partial Thromboplast Time (test code = 51736-0) 38.7 23.8-35.5 [facility] plasma total bilirubin measurement (mass/volume)2020-01-21 02:59:00* Test Item Value Reference Range Interpretation Comments Total Bilirubin (test code = 1975-2) 0.5 0.2-1.2 [facility] AustinFluoroscopic procedure less than one hour tueubegg7112-56-25 02:59:00* Test Item Value Reference Range Interpretation Comments Aspartate Amino Transf (AST/SGOT) (test code = Aspartate Amino Transf (AST/SGOT)) 123 5-34 [facility] or plasma alanine aminotransferase measurement (enzymatic activity/volume)2020-01-21 02:59:00* Test Item Value Reference Range Interpretation Comments Alanine Aminotransferase (ALT/SGPT) (test code = 1742-6) 27 0-55 [facility] or plasma protein measurement (mass/volume)2020-01-21 02:59:00* Test Item Value Reference Range Interpretation Comments Total Protein (test code = 2885-2) 7.0 6.5-8.1 [facility] plasma albumin measurement (mass/volume)2020-01-21 02:59:00* Test Item Value Reference Range Interpretation Comments Albumin (test code = 1751-7) 2.8 3.5-5.0 [facility] AustinPlasma globulin measurement (mass/volume) 2020-01-21 02:59:00* Test Item Value Reference Range Interpretation Comments Globulin (test code = 73586-6) 4.2 2.3-3.5 [facility] or plasma albumin/globulin mass mtgwy0145-84-16 02:59:00* Test Item Value Reference Range Interpretation Comments Albumin/Globulin Ratio (test code = 1759-0) 0.7 0.8-2.0 [facility] or plasma alkaline phosphatase measurement (enzymatic activity/volume)2020-01-21 02:59:00* Test Item Value Reference Range Interpretation Comments Alkaline Phosphatase (test code = 6768-6) 111 40-150 [facility] or plasma triglyceride measurement (mass/volume)2020-01-21 02:59:00* Test Item Value Reference Range Interpretation Comments Triglycerides Level (test code = 2571-8) 314 0-149 [facility] or plasma cholesterol measurement (mass/volume)2020-01-21 02:59:00* Test Item Value Reference Range Interpretation Comments Cholesterol Level (test code = 2093-3) 210 0-199 Less than 200 mg/dL Low Ocbq480 - 239 mg/dL Borderline Vmel455 m g/dl and greater High Risk [facility] or plasma cholesterol in LDL measurement (mass/volume) 2020-01-21 02:59:00* Test Item Value Reference Range Interpretation Comments LDL Cholesterol (test code = 2089-1) 117 60-130 [facility] or plasma cholesterol in HDL measurement (mass/volume)2020-01-21 02:59:00* Test Item Value Reference Range Interpretation Comments HDL Cholesterol (test code = 2085-9) 30 40-60 [facility] or plasma total cholesterol/cholesterol in HDL mass yqchz9099-62-61 02:59:00* Test Item Value Reference Range Interpretation Comments Cholesterol/HDL Ratio (test code = 9830-1) 7.0 3.9-4.7 [facility] AustinProthrombin time (PT) in platelet poor plasma by coagulation ibeau0798-12-04 19:32:00* Test Item Value Reference Range Interpretation Comments Prothrombin Time (test code = 5902-2) 12.7 11.9-14.5 [facility] AustinINR in Platelet poor plasma by Coagulation necve9928-16-91 19:32:00* Test Item Value Reference Range Interpretation Comments Prothromb Time International Ratio (test code = 6301-6) 0.91 Oral Anticoagulant Therapy INR Values:1. Low Intensity Therapy 1.5 - 2.02 . Moderate Intensity Therapy 2.0 - 3.03. High Intensity Therapy(1) 2.5 - 3. 54. High Intensity Therapy(2) 3.0 - 4.05. Panic Value INR > 5.0 [facility] AustinFluoroscopic procedure less than one hour uetoculc1715-45-67 09:45:00* Test Item Value Reference Range Interpretation Comments Coronavirus (PCR) (test code = Coronavirus (PCR)) NOT DETECTED NOTD ETECTED SARS-COV-2 (COVID19), HIGHRISK, RT-PCRNegative results do not preclude SARS-CoV- 2 infection and should not be used as the sole basis for patient management deci sions. Negative results must be combined with clinical observations, patient his tory, and epidemiological information. Optimum specimen types and timing for pea k viral levels during infections caused by SARS-CoV-2 have not been determined. Collection of multiple specimens ot types of specimens may be necessary to detec t virus. Improper specimen collection and handling, sequence variability under p rimers/probes, or organism present below the limit of detection may lead to fals e negative results. Positive and negative predictive values of testing are highl y dependent on prevalance. False negative test results are more likely when prev alence is high.The expected result is negative (not detected).The SARS-CoV-2 judie t is intended for the qualitative detection of nucleic acid from SARS-CoV-2 in n asopharyngeal and oropharyngeal swab samples from patients who meet COVID-19 cli nical and or epidemiological criteria. For lower respiratory tract specimens, th e assay is submitted for authoriztion by FDA under an Emergency Use Authorizatio n (EUA). Testing methodology is real time RT-PCR. If received as separate collec tion devices, nasopharygeal and oropharyngeal specimens are combined for analysi s. Additional specimens may be split to a separate accession for analysi and rep orting as this test includes a single unit of service.Test results must be corre lated with clinical presentation and evaluated in the context of other laborator y and epidemiologic data. Test performance can be affected because the epidemiol ogy and clinical spectrum of infection caused by SARS-CoV-2 is not fully known. For example, the optimum types of specimens to collect and when during the cours e of infection these specimens are most likely to contain detectable viral RNA m ay not be known.This test has not been Food and Drug Administration (FDA) cleare d or approved and has been authorized by FDA under an Emergency Use Authorizatio n (EUA). The test is only authorized for the duration of the declaration that ci rcumstances exist justifying the authorization of emergency use of in vitro diag nostic tests for detection and/or diagnosis of SARS-CoV-2 under section 564(b) o f the Act, 21 U.S.C. section 360bbb-3(b)(1), unless the authorization is termina maggy or revoked sooner. [facility] are certified under the C [facility] Laboratory Improvement Amendments of 1988 (CLIA), 42 U.S.C. section 263a , to perform high complexity tests.Testing performed by [facility] [address] [phone] Director: Breezy Mayers M.D.CLIA # [id number] Seton [facility] Center AustinBedside Ezafxfz9804-92-59 15:10:00* Test Item Value Reference Range Interpretation Comments Bedside Glucose (test code = 58511-8) 157 70-120 H Meter ID: [id number] Seton Medical Center AustinUrine Random Total Pwtrhmy8024-55-10 13:35:00* Test Item Value Reference Range Interpretation Comments Urine Random Total Protein (test code = 2888-6) 517.2 1-14 H [facility] AustinUrine Ebvvnjcqzl0858-47-10 13:35:00* Test Item Value Reference Range Interpretation Comments Urine Creatinine (test code = 2161-8) 147.83 63-166 [facility] AustinU[facility] Protein/Creatinine Qslan3979-61-14 13:35:00* Test Item Value Reference Range Interpretation Comments Urine Protein/Creatinine Ratio (test code = 26112-1) 3.00 [facility] AustinU[facility] Uttrp6345-64-11 11:16:00* Test Item Value Reference Range Interpretation Comments Urine Color (test code = 5778-6) YELLOW YELLOW [facility] AustinU[facility] Xbbhnhr5698-59-73 11:16:00* Test Item Value Reference Range Interpretation Comments Urine Clarity (test code = 37820-1) CLEAR CLEAR [facility] AustinU[facility] Specific Udgnhds5667-39-81 11:16:00 * Test Item Value Reference Range Interpretation Comments Urine Specific [place] (test code = 5811-5) 1.030 1.010-1.02 5 H [facility] AustinU[facility] [id number] 11:16:00* Test Item Value Reference Range Interpretation Comments Urine pH (test code = 23659-1) 6 5-7 [facility] Austin[facility] Leukocyte Bxuurhcs0858-39-97 11:16:00* Test Item Value Reference Range Interpretation Comments Urine Leukocyte Esterase (test code = 5799-2) NEGATIVE NEGATIVE [facility] Austin[facility] Znwwexr0076-34-86 11:16:00* Test Item Value Reference Range Interpretation Comments Urine Nitrite (test code = 32050-7) NEGATIVE NEGATIVE [facility] AustinU[facility] Wyckony1822-05-78 11:16:00* Test Item Value Reference Range Interpretation Comments Urine Protein (test code = 5804-0) 2+ NEGATIVE H [facility] Glucose (UA)2019-09-03 11:16:00* Test Item Value Reference Range Interpretation Comments Urine Glucose (UA) (test code = 2349-9) NEGATIVE NEGATIVE [facility] Oucppao2284-59-23 11:16:00* Test Item Value Reference Range Interpretation Comments Urine Ketones (test code = 00762-5) NEGATIVE NEGATIVE [facility] Rhebbiyvqnrc2436-39-84 11:16:00* Test Item Value Reference Range Interpretation Comments Urine Urobilinogen (test code = 80623-9) 0.2 0.2-1 [facility] Zyrdmgyct3161-02-23 11:16:00* Test Item Value Reference Range Interpretation Comments Urine Bilirubin (test code = 1978-6) NEGATIVE NEGATIVE [facility] AustinUrine Orgts2445-99-42 11:16:00* Test Item Value Reference Range Interpretation Comments Urine Blood (test code = 76394-9) 2+ NEGATIVE [facility] AustinU[facility] GII6314-61-03 11:16:00* Test Item Value Reference Range Interpretation Comments Urine WBC (test code = 5821-4) 11-20 0-5 H [facility] AustinUrine HGG2914-12-31 11:16:00* Test Item Value Reference Range Interpretation Comments Urine RBC (test code = 80082-3) 11-20 0-5 H [facility] AustinUrine Adayamre5502-33-35 11:16:00* Test Item Value Reference Range Interpretation Comments Urine Bacteria (test code = 57803-7) RARE NONE [facility] Austin[facility] Epithelial Kcmyy9318-28-65 11:16:00 * Test Item Value Reference Range Interpretation Comments Urine Epithelial Cells (test code = 73216-5) FEW NONE [facility] AustinUrine color qxtomvswlbcan9199-99-52 09:48:00* Test Item Value Reference Range Interpretation Comments Urine Color (test code = 5778-6) YELLOW YELLOW [facility] AustinUrine gjybyai0123-13-89 09:48:00* Test Item Value Reference Range Interpretation Comments Urine Clarity (test code = 98471-2) CLEAR CLEAR [facility] by Test strip 2019-09-03 09:48:00* Test Item Value Reference Range Interpretation Comments Urine Specific [place] (test code = 5811-5) 1.030 1.010-1.02 5 [facility] AustinU[facility] pH measurement by automated test moyid0008-19-30 09:48:00* Test Item Value Reference Range Interpretation Comments Urine pH (test code = 31686-2) 6 5-7 [facility] AustinU[facility] leukocyte esterase detection by hilfhudq9030-17-34 09:48:00* Test Item Value Reference Range Interpretation Comments Urine Leukocyte Esterase (test code = 5799-2) NEGATIVE NEGATIVE [facility] AustinUrine nitrite btunugdtt7413-41-89 09:48:00* Test Item Value Reference Range Interpretation Comments Urine Nitrite (test code = 43046-1) NEGATIVE NEGATIVE [facility] AustinU[facility] protein measurement by test strip (mass/volume)2019-09-03 09:48:00* Test Item Value Reference Range Interpretation Comments Urine Protein (test code = 5804-0) 2+ NEGATIVE [facility] AustinU[facility] glucose npwxkpwwo3547-13-68 09:48:00* Test Item Value Reference Range Interpretation Comments Urine Glucose (UA) (test code = 2349-9) NEGATIVE NEGATIVE [facility] AustinUrine ketones detection by automated test hewvb3479-49-34 09:48:00* Test Item Value Reference Range Interpretation Comments Urine Ketones (test code = 21305-1) NEGATIVE NEGATIVE [facility] AustinUrine urobilinogen measurement by test strip (mass/volume)2019-09-03 09:48:00* Test Item Value Reference Range Interpretation Comments Urine Urobilinogen (test code = 78303-6) 0.2 0.2-1 [facility] AustinU[facility] total bilirubin measurement (mass/volume)2019-09-03 09:48:00* Test Item Value Reference Range Interpretation Comments Urine Bilirubin (test code = 1978-6) NEGATIVE NEGATIVE [facility] AustinUrine erythrocytes khbdnmvgh3083-10-51 09:48:00* Test Item Value Reference Range Interpretation Comments Urine Blood (test code = 99556-9) 2+ NEGATIVE [facility] AustinAutomated urine sediment leukocyte count by microscopy (number/high power field)2019-09-03 09:48:00* Test Item Value Reference Range Interpretation Comments Urine WBC (test code = 5821-4) 11-20 0-5 [facility] AustinErythrocytes detection in urine sediment by light puhpiqtidh5111-99-42 09:48:00* Test Item Value Reference Range Interpretation Comments Urine RBC (test code = 05907-7) 11-20 0-5 [facility] AustinBacteria detection in urine sediment by light gstdyvmawk8624-86-57 09:48:00* Test Item Value Reference Range Interpretation Comments Urine Bacteria (test code = 54072-9) RARE NONE [facility] AustinEpithelial cells detection in urine sediment by light fmvgmvdmlo3993-87-30 09:48:00* Test Item Value Reference Range Interpretation Comments Urine Epithelial Cells (test code = 81508-3) FEW NONE [facility] AustinUrine protein measurement (mass/volume) 2019-09-03 09:48:00* Test Item Value Reference Range Interpretation Comments Urine Random Total Protein (test code = 2888-6) 517.2 1-14 [facility] AustinU[facility] creatinine measurement (mass/volume)2019-09-03 09:48:00* Test Item Value Reference Range Interpretation Comments Urine Creatinine (test code = 2161-8) 147.83 63-166 [facility] AustinRandom urine protein/creatinine ratio 2019-09-03 09:48:00* Test Item Value Reference Range Interpretation Comments Urine Protein/Creatinine Ratio (test code = 49463-5) 3.00 [facility] AustinD-Dimer Quantitative (PE/DVT)2019-09-03 09:46:00* Test Item Value Reference Range Interpretation Comments D-Dimer Quantitative (PE/DVT) (test code = 75404-3) 1500 0- 400 H The Triage D-Dimer Test has not been evaluated for use as sole evidence for the presence or absence of PE or DVT. As with all in vitro diagnostic tests, the te st results should be interpreted by the physician in conjunction with clinical f indings and other test results.Test results are reported in D-dimer units.[facility] AustinTriglycerides Rwfoj0493-19-36 06:27:00* Test Item Value Reference Range Interpretation Comments Triglycerides Level (test code = 2571-8) 167 0-149 H [facility] AustinCholesterol Gvzrb6370-83-16 06:27:00* Test Item Value Reference Range Interpretation Comments Cholesterol Level (test code = 2093-3) 153 0-199 Less than 200 mg/dL Low Ysgb545 - 239 mg/dL Borderline Fars218 m g/dl and greater High Risk [facility] AustinLDL Fxofrpcgnyg4913-27-62 06:27:00* Test Item Value Reference Range Interpretation Comments LDL Cholesterol (test code = 2089-1) 92 60-130 [facility] AustinHDL Utmumenhnbv6172-97-24 06:27:00* Test Item Value Reference Range Interpretation Comments HDL Cholesterol (test code = 2085-9) 28 40-60 L [facility] AustinCholesterol/HDL Kaxul8623-15-99 06:27:00 * Test Item Value Reference Range Interpretation Comments Cholesterol/HDL Ratio (test code = 9830-1) 5.5 3.9-4.7 H [facility] Centerodium Ppyso3143-27-69 06:13:00* Test Item Value Reference Range Interpretation Comments Sodium Level (test code = 2951-2) 138 136-145 [facility] AustinPotassium Qhpcx3785-65-69 06:13:00* Test Item Value Reference Range Interpretation Comments Potassium Level (test code = 2823-3) 4.1 3.5-5.1 [facility] AustinChloride Ybauq8021-46-82 06:13:00* Test Item Value Reference Range Interpretation Comments Chloride Level (test code = 2075-0) 103 98-107 [facility] AustinCarbon Dioxide Qzlrp7599-56-38 06:13:00* Test Item Value Reference Range Interpretation Comments Carbon Dioxide Level (test code = 2028-9) 29 22-29 [facility] AustinAnion Fdb1780-23-52 06:13:00* Test Item Value Reference Range Interpretation Comments Anion Gap (test code = 49456-6) 10.1 8-16 [facility] AustinBlood Urea Wieyagvi5250-20-65 06:13:00* Test Item Value Reference Range Interpretation Comments Blood Urea Nitrogen (test code = 3094-0) 40 7-26 H [facility] AustinCreatinine2020-03-05 06:13:00* Test Item Value Reference Range Interpretation Comments Creatinine (test code = 2160-0) 2.15 0.72-1.25 H [facility] AustinBUN/Creatinine Argff0577-28-13 06:13:00* Test Item Value Reference Range Interpretation Comments BUN/Creatinine Ratio (test code = 3097-3) 19 6-25 [facility] AustinEstimat Glomerular Filtration Rate 2019-09-03 06:13:00* Test Item Value Reference Range Interpretation Comments Estimat Glomerular Filtration Rate (test code = 424303053) 32 >60 L Ranges were taken from the National Kidney Disease Education Program and the [facility] Kid[facility] Foundation literature.Reference ranges:60 or greater: Oicygv61-40 ( for 3 consecutive months): Chronic kidney disease 15 or less: Kidney failureAsc[facility]on [facility] Center AustinGlucose Kuvcr3462-65-64 06:13:00* Test Item Value Reference Range Interpretation Comments Glucose Level (test code = KBR5796) 66 74-118 L [facility] AustinCalcium Zxrif6826-07-12 06:13:00* Test Item Value Reference Range Interpretation Comments Calcium Level (test code = 66694-7) 8.6 8.4-10.2 [facility] AustinWhite Blood Ypqkg2145-09-33 05:43:00* Test Item Value Reference Range Interpretation Comments White Blood Count (test code = 6690-2) 9.54 4.8-10.8 [facility] AustinRed Blood Frntb9596-57-85 05:43:00* Test Item Value Reference Range Interpretation Comments Red Blood Count (test code = 789-8) 5.69 4.3-5.7 [facility] AustinHemoglobin2020-03-05 05:43:00* Test Item Value Reference Range Interpretation Comments Hemoglobin (test code = 66705-2) 15.8 14.0-18.0 [facility] AustinHematocrit2020-03-05 05:43:00* Test Item Value Reference Range Interpretation Comments Hematocrit (test code = 4544-3) 51.6 38.2-49.6 H [facility] AustinMean Corpuscular Ixsdji4290-84-02 05:43:00* Test Item Value Reference Range Interpretation Comments Mean Corpuscular Volume (test code = 787-2) 90.7 81-99 [facility] AustinMean Corpuscular Voyykcckjh8543-45-34 05:43:00* Test Item Value Reference Range Interpretation Comments Mean Corpuscular Hemoglobin (test code = 785-6) 27.8 28-32 L [facility] AustinMean Corpuscular Hemoglobin Concent 2019-09-03 05:43:00* Test Item Value Reference Range Interpretation Comments Mean Corpuscular Hemoglobin Concent (test code = 786-4) 30.6 31-35 L [facility] AustinRed Cell Distribution Uifqi2180-69-24 05:43:00* Test Item Value Reference Range Interpretation Comments Red Cell Distribution Width (test code = 60123-3) 13.8 11.7 -14.4 [facility] AustinPlatelet Zifhy8656-50-53 05:43:00* Test Item Value Reference Range Interpretation Comments Platelet Count (test code = 777-3) 206 140-360 [facility] AustinNeutrophils (%) (Auto)2019-09-03 05:43:00 * Test Item Value Reference Range Interpretation Comments Neutrophils (%) (Auto) (test code = 24850-3) 70.5 38.7-80.0 [facility] AustinLymphocytes (%) (Auto)2019-09-03 05:43:00 * Test Item Value Reference Range Interpretation Comments Lymphocytes (%) (Auto) (test code = 736-9) 18.3 18.0-39.1 [facility] AustinMonocytes (%) (Auto)2019-09-03 05:43:00* Test Item Value Reference Range Interpretation Comments Monocytes (%) (Auto) (test code = 5905-5) 7.0 4.4-11.3 [facility] AustinEosinophils (%) (Auto)2019-09-03 05:43:00 * Test Item Value Reference Range Interpretation Comments Eosinophils (%) (Auto) (test code = 713-8) 2.5 0.0-6.0 [facility] AustinBasophils (%) (Auto)2019-09-03 05:43:00* Test Item Value Reference Range Interpretation Comments Basophils (%) (Auto) (test code = 706-2) 0.8 0.0-1.0 [facility] AustinIM GRANULOCYTES %2019-09-03 05:43:00* Test Item Value Reference Range Interpretation Comments IM GRANULOCYTES % (test code = IM GRANULOCYTES %) 0.9 0.0- 1.0 [facility] AustinNeutrophils # (Auto)2019-09-03 05:43:00* Test Item Value Reference Range Interpretation Comments Neutrophils # (Auto) (test code = 751-8) 6.7 2.1-6.9 [facility] AustinLymphocytes # (Auto)2019-09-03 05:43:00* Test Item Value Reference Range Interpretation Comments Lymphocytes # (Auto) (test code = 38156-6) 1.8 1.0-3.2 [facility] AustinMonocytes # (Auto)2019-09-03 05:43:00* Test Item Value Reference Range Interpretation Comments Monocytes # (Auto) (test code = 742-7) 0.7 0.2-0.8 [facility] AustinEosinophils # (Auto)2019-09-03 05:43:00* Test Item Value Reference Range Interpretation Comments Eosinophils # (Auto) (test code = 711-2) 0.2 0.0-0.4 [facility] AustinBasophils # (Auto)2019-09-03 05:43:00* Test Item Value Reference Range Interpretation Comments Basophils # (Auto) (test code = 704-7) 0.1 0.0-0.1 [facility] AustinAbsolute Immature Granulocyte (auto 2019-09-03 05:43:00* Test Item Value Reference Range Interpretation Comments Absolute Immature Granulocyte (auto (judie t code = Absolute Immature Granulocyte (auto) 0.09 0-0.1 [facility] AustinFibrin D-dimer DDU measurement in platelet poor plasma (mass/volume)2019-09-03 04:00:00* Test Item Value Reference Range Interpretation Comments D-Dimer Quantitative (PE/DVT) (test code = 00990-8) 1500 0- 400 The Triage D-Dimer Test has not been evaluated for use as sole evidence for the presence or absence of PE or DVT. As with all in vitro diagnostic tests, the te st results should be interpreted by the physician in conjunction with clinical f indings and other test results.Test results are reported in D-dimer units.[facility] AustinCreatine Kinase EH1442-16-60 11:57:00* Test Item Value Reference Range Interpretation Comments Creatine Kinase MB (test code = 13266-7) 18.90 0-5.0 H [facility] AustinHemoglobin A1c Tbtwqju9955-90-89 11:42:00 * Test Item Value Reference Range Interpretation Comments Hemoglobin A1c Percent (test code = Hemoglobin A1c Percent) 9.0 4.0-7.0 H [facility] AustinCHEST SINGLE (PORTABLE)2019-09-02 08:46:00 [facility] [address] [place] [address] Patient Name: SREEDHAR MCDONALD V MR #: [id number] : 1965 Age/Sex: 54/M Req #: [id number] Adm Physician: TAMELA CALDERA MD Ordered by: MARICRUZ PATTERSON MD Report #: [id number] Location: [facility] Room/Bed: [place] [address] Procedure: 030 4-0002 DX/CHEST SINGLE (PORTABLE) Exam Date: 09/02/19 Exam Time: 0610 REPORT STATUS: Si gned EXAMINATION: CHEST SINGLE (PORTABLE) INDICATION: Screening. COMPARISON: Chest radiograph 09/01/2019. FINDINGS: Exam is renu ewhat limited by soft tissue attenuation and portable technique. TUBES and LINES: None. LUNGS: Hyperinflated lungs. Persistent mild lower lung zone interstitial opacities. No new consolidation. PLEURA: No pleural effusi on or pneumothorax. HEART AND MEDIASTINUM: The cardiomediastinal silhouett e is unremarkable. BONES AND SOFT TISSUES: No acute osseous lesion. S oft tissues are unremarkable. UPPER ABDOMEN: No free air under the diaphr agm. IMPRESSION: Hyperinflated lungs without acute radiographic abnorma lity. Signed by: Dr. Zachary Guaman MD on 09/02/2019 8:48 AM Dictated By: ZACHARY GUAMAN MD 7 Transc ribed By: ARTURO on 09/02/19847 COPY TO: MARICRUZ PATTERSON MD, [facility] Erythrocyte Sedimentation Ifsc5543-15-28 06:56:00* Test Item Value Reference Range Interpretation Comments Erythrocyte Sedimentation Rate (test code = 4537-7) 18 0- 13 H [facility] AustinHIV (1&2) Fjybrpmo4876-59-29 06:06:00* Test Item Value Reference Range Interpretation Comments HIV (1&2) Antibody (test code = 85944-9) NON-REACTIVE NONREACTIVE [facility] AustinHIV P24 Fedseyz8350-98-24 06:06:00* Test Item Value Reference Range Interpretation Comments HIV P24 Antigen (test code = HIV P24 Antigen) NON-REACTIVE NONREACT ELLE [facility] AustinFluoroscopic procedure less than one hour dgfllzze8494-30-74 04:00:00* Test Item Value Reference Range Interpretation Comments Hemoglobin A1c Percent (test code = Hemoglobin A1c Percent) 9.0 4.0-7.0 [facility] Centererum or plasma creatine kinase MB measurement (mass/volume)2019-09-02 04:00:00* Test Item Value Reference Range Interpretation Comments Creatine Kinase MB (test code = 41679-7) 18.90 0-5.0 [facility] AustinErythrocyte sedimentation rate by Westergren lgnpos3737-31-83 03:55:00* Test Item Value Reference Range Interpretation Comments Erythrocyte Sedimentation Rate (test code = 4537-7) 18 0- 13 [facility] AustinHIV 1 and 2 antibody detection qualitative by rapid zhbnfsucgha9169-12-01 03:55:00* Test Item Value Reference Range Interpretation Comments HIV (1&2) Antibody (test code = 58878-9) NON-REACTIVE NONREACTIVE [facility] AustinFluoroscopic procedure less than one hour bstqzbfq7945-31-35 03:55:00* Test Item Value Reference Range Interpretation Comments HIV P24 Antigen (test code = HIV P24 Antigen) NON-REACTIVE NONREACT ELLE [facility] AustinMRA NECK DG2751-55-70 17:38:00 [facility] [address] [address] Patient Name: SREEDHAR MCDONALD V MR #: [id number] : 1965 Age/Sex: 54/M Req #: [id number] Adm Physician: TAMELA CALDERA MD Ordered by: MARIA E HENRIQUEZ MD Report #: [id number] Location: [facility] Room/Bed: IMCU 188-1 Procedure: 030 3-0010 MRI/MRA NECK WO Exam Date: Exam Time: REPORT STATUS: Signed MRA NECK WO HISTORY: Stroke COMPARISON: MRI of the brain 09/01/2019 TECHNIQUE: Axial 2-D cervical vcnx-qv-llbmze MRA images were obtained without contrast. Maximum intensity projection images were created. If present, any cervical ca rotid stenosis will be measured as a percentage relative to the ute artery distal to the stenosis. FINDINGS: Right Carotid: No flow abnormalities . Left Carotid: No flow abnormalities. Right vertebral artery: No flow ab normalities. Left vertebral artery: No flow abnormalities. The intracra nial arterial vasculature is partially imaged. The intradural vertebral, basil ar, and proximal posterior cerebral arteries (P1 segments) are grossly patent. The intracranial internal carotid arteries, M1 segments, and A1 segments are grossly patent. Incidental findings: Indeterminate mildly hyperintense subc utaneous mass in the right neck, superficial to the mid right sternocleidomast oid muscle, is partially imaged on coronal localizer images and measures up to 2.2 cm in craniocaudal dimension. IMPRESSION: 1. No cervical MRA abno rmalities. 2. Indeterminate 2.2 cm ovoid subcutaneous mass in the mid right [place], superficial to the mid right sternocleidomastoid muscle. Further evaluati on with nonemergent neck ultrasound or CT is recommended. Signed by: Dr. Pankaj Mtz M.D. on 09/01/2019 5:48 PM Dictated By: PANKAJ MTZ MD 47 Transcribed By: ARTURO on 09/01/191747 COPY TO: MARIA E HENRIQUEZ MD Troponin I 2019-09-01 15:28:00* Test Item Value Reference Range Interpretation Comments Troponin I (test code = OLO0282) 0.155 0-0.300 [facility] AustinCreatine Savprx9873-54-23 15:17:00* Test Item Value Reference Range Interpretation Comments Creatine Kinase (test code = 2157-6) 222 30-200 H [facility] AustinMRI BRAIN LL6963-33-14 13:56:00 [facility] [address] [address] Patient Name: SREEDHAR MCDONALD V MR #: [id number] : 1965 Age/Sex: 54/M Req #: [id number] Adm Physician: TAMELA CALDERA MD Ordered by: MARIA E HENRIQUEZ MD Report #: [id number] Location: [facility] Room/Bed: [place] [address] Procedure: 030 3-0004 MRI/MRI BRAIN WO Exam Date: Exam Time: REPORT STATUS: Signed Examination: M RI BRAIN WO CONTRAST History: Confusion. Altered mental status. Visual disturb ance. Acute renal failure; stroke. Comparison studies: Head CT performed Aug. Technique: Sagittal T2; axial DWI, FLAIR, GRE or SWI, T1, Co cecily FLAIR. Intravenous contrast: None Findings: Scalp: No abnormal signal. No masses. Bone marrow: Normal in signal intensity. Brain volum e: Adequate for age. No volume loss. Ventricles: Normal in size and configura tion. No hydrocephalus. Extra-axial spaces: No abnormalities. Pa renchyma: There are patchy and confluent areas of T2/FLAIR hyperintensity in t he periventricular and subcortical white matter, nonspecific. Cortical-base d area of clear gliosis is identified in the left inferior parietal lobule and left superior and middle temporal gyri. No masses or hemorrhage. Supras ellar and sellar region: No abnormalities. Craniocervical junction: No abnorma lities. The foramen magnum is patent. No Chiari malformations. Vessels: Norm al flow-voids in the arteries and sinuses. Additional findings:None. I MPRESSION: Acute, nonhemorrhagic left MCA-NUMERICAL CONTROL PROGRAMMER external watershed and left M CA infarcts, unchanged from prior head CT performed August 31, 2019. Mild c hronic microvascular ischemic change. Signed by: Dr. Mary Francis M.D. on 09/01/2019 2:11 PM Dictated By: MARY SAUL MD Electronic ally Signed By: MARY SAUL MD on 09/01/191410 Transcribed By: SANTOS ACOSTA on 09/01/191410 COPY TO: MARIA E HENRIQUEZ MD Serum or plasma creatine kinase measurement (enzymatic activity/volume)2019-09-01 13:19:00* Test Item Value Reference Range Interpretation Comments Creatine Kinase (test code = 2157-6) 222 30-200 [facility] AustinTroponin I measurement by highly sensitive enzyme lqiqxxmpahv1993-79-04 13:19:00* Test Item Value Reference Range Interpretation Comments Troponin I (test code = 42567-2) 0.155 0-0.300 [facility] AustinVQ LUNG SCAN VENT BAXEZOSYE5820-53-71 06:40:00 [facility] [address] [place] [address] Patient Name: SREEDHAR MCDONALD V MR #: [id number] : 1965 Age/Sex: 54/M Req #: [id number] Adm Physician: Ordered by: BRODY RICHARDS DO Report #: [id number] Location: ER Room/Bed: Procedure: 0303-000 1 NM/VQ LUNG SCAN VENT PERFUSION Exam Date: Exam Time: REPORT STATUS: Signed EX AM: VENTILATION PERFUSION LUNG SCAN INDICATION: Shortness of breath, 30+ ye ars smoker COMPARISON: Chest x-ray 09/01/2019 DISCUSSION: Xenon-133 gas 11 mCi was administered via inhalation. Dynamic images of the lungs in the po sterior projection were obtained through single breath and washout phases. Dis tribution of tracer activity is minimally irregular throughout the lungs. Wash out is diffusely delayed but there is no evidence of air trapping. Perfus ion images of the lungs in multiple projections were obtained following intrav enous administration of 7 mCi of Tc-99m MAA. Distribution of tracer Minimally irregular throughout the lungs.There are no segmental perfusion defects of any size. The perfusion images are well matched to the ventilation images.. The contours of the lungs are well demarcated. The cardiac silhouette is rachael l. Images of the head and kidneys were obtained and show no intracranial or renal parenchyma accumulation of tracer. IMPRESSION: 1. Scan findi ngs represent a LOW probability for acute pulmonary embolic disease based on t he PIOPED II criteria. 2. Scan findings are compatible with diffuse parench ymal and/or obstructive lung disease. Signed by: Anthony Garcia DO on 09/01/2019 6:42 AM Dictated By: ANTHONY GARCIA DO 1 Transcribed By: ARTURO on 09/01/19641 COPY TO: BRODY RICHARDS DO CHEST SINGLE (PORTABLE)2019-09-01 04:39:00 [place] [address] Patient Name: SREEDHAR MCDONALD V MR #: [id number] : 1965 Age/Sex: 54/M Req #: [id number] Adm Physician: Ordered by: BRODY RICHARDS DO Report #: [id number] Location: ER Room/Bed: Procedure: 0303-000 8 DX/CHEST SINGLE (PORTABLE) Exam Date: 09/01/19 Zakia chicas Time: 0410 REPORT STATUS: Signed EXAMINATION: CHEST SINGLE (PORTABLE) INDICATION: Chest pain COMPARISON: None FINDINGS: TUBES and LINES: None. L UNGS: Hyperinflated lungs. Coarse pulmonary interstitial markings in the cent ral and lower lungs. PLEURA: No pleural effusion or pneumothorax . HEART AND MEDIASTINUM: The cardiomediastinal silhouette is unremarkable. BONES AND SOFT TISSUES: No acute osseous lesion. Soft tissues are unremarkable. UPPER ABDOMEN: No free air under the diaphragm. IMPRESS ION: Findings which can be seen with emphysema/obstructive pulmonary disea se. Signed by: Anthony Garcia DO on 09/01/2019 4:41 AM Dictated By: Gerald GARCIA DO 04 41 Transcribed By: ARTURO on 09/01/19 0441 COPY TO: BRODY RICHARDS D O Bskbiux7225-34-45 00:37:00* Test Item Value Reference Range Interpretation Comments Ammonia (test code = 60494-9) 62 31-123 [facility] Rykol2368-66-70 00:01:00* Test Item Value Reference Range Interpretation Comments Salicylates Level (test code = 4024-6) < 5.0 0-30 [facility] Uxquhbfjd1593-70-10 23:53:00* Test Item Value Reference Range Interpretation Comments Total Bilirubin (test code = 1975-2) 0.5 0.2-1.2 [facility] AustinAspartate Amino Transf (AST/SGOT) 2019-08-31 23:53:00* Test Item Value Reference Range Interpretation Comments Aspartate Amino Transf (AST/SGOT) (test code = Aspartate Amino Transf (AST/SGOT)) 22 5-34 [facility] AustinAlanine Aminotransferase (ALT/SGPT) 2019-08-31 23:53:00* Test Item Value Reference Range Interpretation Comments Alanine Aminotransferase (ALT/SGPT) (test code = 1742-6) 23 0-55 [facility] AustinTotal Gcrayvd7548-33-87 23:53:00* Test Item Value Reference Range Interpretation Comments Total Protein (test code = 2885-2) 7.8 6.5-8.1 [facility] AustinAlbumin2020-03-02 23:53:00* Test Item Value Reference Range Interpretation Comments Albumin (test code = 1751-7) 3.3 3.5-5.0 L [facility] AustinGlobulin2020-03-02 23:53:00* Test Item Value Reference Range Interpretation Comments Globulin (test code = 73289-2) 4.5 2.3-3.5 H [facility] AustinAlbumin/Globulin Stdpu2850-55-59 23:53:00 * Test Item Value Reference Range Interpretation Comments Albumin/Globulin Ratio (test code = 1759-0) 0.7 0.8-2.0 L [facility] AustinAlkaline Ypuguprgogg9010-82-37 23:53:00* Test Item Value Reference Range Interpretation Comments Alkaline Phosphatase (test code = 6768-6) 127 40-150 [facility] AustinCT BRAIN [id number] 23:49:00 [facility] [address] [place] [address] Patient Name: SREEDHAR MCDONALD V MR #: [id number] : 1965 Age/Sex: 54/M Req #: [id number] Adm Physician: Ordered by: BRODY RICHARDS DO Report #: [id number] Location: ER Room/Bed: Procedure: 0302-[address]/CT BRAIN WO Exam Date: 08/31/19 Exam Time: 2330 REPORT STATUS: Signed History:C onfusion, pain Comparison studies: None Technique: Axial images we re obtained from the skull base to the vertex. Coronal and sagittal images rec onstructed from the axial data. Dose modulation, iterative reconstruction, and /or weight based adjustment of the mA/kV was utilized to reduce the radiation dose to as low as reasonably achievable. Intravenous contrast: None Findings: Scalp/skull: An old left occipital craniectomy defect correl ates with the patient's history of surgery for a meningioma. No gross abnorm alities are seen in the underlying left cerebellum. No additional abnormalitie s in the scalp or in the skull. Extra-axial spaces: No masses. No fluid collections. Brain sulci: Mildly prominent Ventricles: Mild compensatory dilatation. No hydrocephalus. Parenchyma: Well-circumscribed cortical and subcortical hypodensities which involve the lateral aspect of the left temporal lobe (mostly the middle temporal gyrus) and the angular region of the left parietal lobe are consistent with acute nonhemorrhagic distal left MCA v ascular insults. Subtle hypodensities in the supratentorial white matter ar e small vessel ischemic changes. No masses, hemorrhage, additional acute or chronic cortical vascular insults. Sellar/suprasellar region: No abnormali ties. Craniocervical junction: Patent foramen magnum. No Chiari one malformat ion. Incidental findings: Atherosclerotic calcifications in the carotid s iphons . 1 cm dystrophic left orbitofrontal dystrophic calcification without s urrounding edema Impression: 1. Focal acute left temporal and parietal nonhemorrhagic distal left MCA vascular insults are presumed to be embolic. 2. No additional acute abnormalities. 3. Dr. Richards notified of the fin dings on 08/31/2019 at 2355 hours. Chronic findings: 1. Mild generalized v olume loss. 2. Mild supratentorial white matter small vessel ischemic changes . 3. Old left occipital craniectomy consistent with patient's history of brai n surgery for a meningioma. Signed by: Dr. Nate Mir M.D. on 08/31/2019 11:58 PM Dictated By: NATE MIR MD, MD 57 Transcribed By: ARTURO on 08/31/192357 COPY TO: BRODY RICHARDS DO Prothrombin Time 2019-08-31 23:42:00* Test Item Value Reference Range Interpretation Comments Prothrombin Time (test code = 5902-2) 13.2 11.9-14.5 [facility] AustinProthromb Time International Ratio 2019-08-31 23:42:00* Test Item Value Reference Range Interpretation Comments Prothromb Time International Ratio (test code = 6301-6) 0.95 Oral Anticoagulant Therapy INR Values:1. Low Intensity Therapy 1.5 - 2.02 . Moderate Intensity Therapy 2.0 - 3.03. High Intensity Therapy(1) 2.5 - 3. 54. High Intensity Therapy(2) 3.0 - 4.05. Panic Value INR > 5.0 [facility] AustinAmmonia Moo-pOqq8315-22-02 22:17:00* Test Item Value Reference Range Interpretation Comments Ammonia (test code = 85901-0) 62 31-123 [facility] Centererum or plasma salicylates measurement (mass/volume)2019-08-31 22:17:00* Test Item Value Reference Range Interpretation Comments Salicylates Level (test code = 4024-6) < 5.0 0-30 [facility] AustinBlood Ownzipn2121-94-84 18:35:00* Test Item Value Reference Range Interpretation Comments Blood Culture (test code = 58451192) NO GROWTH AFTER 48 HOURS [facility] AustinBedside Zarcevo4326-79-38 15:36:00* Test Item Value Reference Range Interpretation Comments Bedside Glucose (test code = 70545-6) 175 70-120 H Meter ID: [id number] [facility] [id number] 10:40:00 [place] [address] Patient Name: SREEDHAR MCDONALD V MR #: [id number] : 1965 Age/Sex: 53/M Req #: [id number] Adm Physician: FRANCIS BYRD MD Ordered by: YULISSA RIZZO, MIKKI RIZZO Report #: [id number] [facility] Procedure: [id number] 2 US/US RENAL RETROPERITONEAL COMP Exam Date: 09/07/18 Exam Time: 927 REPORT STATUS: S igned EXAM: Renal Ultrasound INDICATION: BARRIE COMPARISON: None TECHNIQUE: Transverse and longitudinal images of the kidneys and bladder were obtained. FINDINGS: Right Kidney: Length: Measures 10.1 x 6.1 x 4.8 cm Appearance: Normal echogenicity. Collecting system: No hydro nephrosis Stones: None Cyst/Mass: None Left Kidney: Length: Measures 1.9 x 6.1 x 4.9 cm Appearance: Normal echogenicity. Collecting system: No hydronephrosis Stones: There is a 3 mm echogenic focus with shadowing in the midpole. Cyst/Mass: None Bladder: Unremarkable in appearance. Bilatera l ureteral jets are present. Other: Incidental splenomegaly measuring 15 cm. IMPRESSION: No evidence of hydronephrosis. 3 mm nonobstructing l eft midpole renal stone. Incidental splenomegaly measuring 15 cm. Sign ed by: Dr. Zachary Guaman MD on 09/07/2018 10:46 AM Dictated By: ZACHARY Mejia 1046 Transcribed By: Enterprise[employer] DAWSON on 09/07/18 1046 COPY TO: MIKKI DUENAS Sodium Level 2018-09-07 06:01:00* Test Item Value Reference Range Interpretation Comments Sodium Level (test code = 2951-2) 133 136-145 L [facility] AustinPotassium Xhusa0991-91-35 06:01:00* Test Item Value Reference Range Interpretation Comments Potassium Level (test code = 2823-3) 4.2 3.5-5.1 [facility] AustinChloride Tmavu6087-80-87 06:01:00* Test Item Value Reference Range Interpretation Comments Chloride Level (test code = 2075-0) 102 98-107 [facility] AustinCarbon Dioxide Yrhac5916-49-25 06:01:00* Test Item Value Reference Range Interpretation Comments Carbon Dioxide Level (test code = 2028-9) 24 22-29 [facility] AustinAnion Oip7633-11-55 06:01:00* Test Item Value Reference Range Interpretation Comments Anion Gap (test code = 96174-6) 11.2 8-16 [facility] AustinBlood Urea Mztvlckh8018-69-06 06:01:00* Test Item Value Reference Range Interpretation Comments Blood Urea Nitrogen (test code = 3094-0) 28 7-26 H [facility] AustinCreatinine2019-03-10 06:01:00* Test Item Value Reference Range Interpretation Comments Creatinine (test code = 2160-0) 1.93 0.72-1.25 H [facility] AustinBUN/Creatinine Ymzwg3999-21-39 06:01:00* Test Item Value Reference Range Interpretation Comments BUN/Creatinine Ratio (test code = 3097-3) 15 6-25 [facility] AustinEstimat Glomerular Filtration Rate 2018-09-07 06:01:00* Test Item Value Reference Range Interpretation Comments Estimat Glomerular Filtration Rate (test code = 698550661) 37 >60 L Ranges were taken from the National Kidney Disease Education Program and the [facility] [employer] literature.Reference ranges:60 or greater: Xgekzp92-62 ( for 3 consecutive months): Chronic kidney disease 15 or less: Kidney failureAsc[facility] Center AustinGlucose Pxcil4498-73-45 06:01:00* Test Item Value Reference Range Interpretation Comments Glucose Level (test code = XBB6421) 172 74-118 H [facility] AustinCalcium Pqkby4189-26-34 06:01:00* Test Item Value Reference Range Interpretation Comments Calcium Level (test code = 50878-5) 9.0 8.4-10.2 [facility] AustinTotal Wbbjlbwxn8234-55-10 06:01:00* Test Item Value Reference Range Interpretation Comments Total Bilirubin (test code = 1975-2) 0.3 0.2-1.2 [facility] AustinAspartate Amino Transf (AST/SGOT) 2018-09-07 06:01:00* Test Item Value Reference Range Interpretation Comments Aspartate Amino Transf (AST/SGOT) (test code = Aspartate Amino Transf (AST/SGOT)) 15 5-34 [facility] AustinAlanine Aminotransferase (ALT/SGPT) 2018-09-07 06:01:00* Test Item Value Reference Range Interpretation Comments Alanine Aminotransferase (ALT/SGPT) (test code = 1742-6) 19 0-55 [facility] AustinTotal Yfvfwkt2345-07-92 06:01:00* Test Item Value Reference Range Interpretation Comments Total Protein (test code = 2885-2) 6.4 6.5-8.1 L [facility] AustinAlbumin2019-03-10 06:01:00* Test Item Value Reference Range Interpretation Comments Albumin (test code = 1751-7) 2.5 3.5-5.0 L [facility] AustinGlobulin2019-03-10 06:01:00* Test Item Value Reference Range Interpretation Comments Globulin (test code = 01185-7) 3.9 2.3-3.5 H [facility] AustinAlbumin/Globulin Pkhgv3856-53-32 06:01:00 * Test Item Value Reference Range Interpretation Comments Albumin/Globulin Ratio (test code = 1759-0) 0.6 0.8-2.0 L [facility] AustinAlkaline Qwahrzwrlfa0075-35-92 06:01:00* Test Item Value Reference Range Interpretation Comments Alkaline Phosphatase (test code = 6768-6) 89 40-150 [facility] AustinUrine Random Total Yzbxjln7570-35-90 22:52:00* Test Item Value Reference Range Interpretation Comments Urine Random Total Protein (test code = 2888-6) 299.6 1-14 H [facility] AustinUrine Protein/Creatinine Gmbjc5476-46-89 22:52:00* Test Item Value Reference Range Interpretation Comments Urine Protein/Creatinine Ratio (test code = 28083-9) 2.00 [facility] AustinUrine Hlxhrehvco0886-05-86 18:11:00* Test Item Value Reference Range Interpretation Comments Urine Creatinine (test code = 2161-8) 117.51 63-166 [facility] AustinUric Bcaw4278-58-43 18:11:00* Test Item Value Reference Range Interpretation Comments Uric Acid (test code = 3084-1) 8.5 4.8-8.0 H [facility] AustinWhite Blood Reuzb0350-04-51 06:14:00* Test Item Value Reference Range Interpretation Comments White Blood Count (test code = 6690-2) 11.18 4.8-10.8 H [facility] AustinRed Blood Qlobp2471-93-19 06:14:00* Test Item Value Reference Range Interpretation Comments Red Blood Count (test code = 789-8) 5.57 4.3-5.7 [facility] AustinHemoglobin2019-03-09 06:14:00* Test Item Value Reference Range Interpretation Comments Hemoglobin (test code = 31772-0) 15.7 14.0-18.0 [facility] AustinHematocrit2019-03-09 06:14:00* Test Item Value Reference Range Interpretation Comments Hematocrit (test code = 4544-3) 50.3 38.2-49.6 H [facility] AustinMean Corpuscular Pdhbqv4640-68-74 06:14:00* Test Item Value Reference Range Interpretation Comments Mean Corpuscular Volume (test code = 787-2) 90.3 81-99 [facility] AustinMean Corpuscular Ssfbzjjnez7525-01-17 06:14:00* Test Item Value Reference Range Interpretation Comments Mean Corpuscular Hemoglobin (test code = 785-6) 28.2 28-32 [facility] AustinMean Corpuscular Hemoglobin Concent 2018-09-06 06:14:00* Test Item Value Reference Range Interpretation Comments Mean Corpuscular Hemoglobin Concent (test code = 786-4) 31.2 31-35 [facility] AustinRed Cell Distribution Evodb1165-05-33 06:14:00* Test Item Value Reference Range Interpretation Comments Red Cell Distribution Width (test code = 25874-6) 13.9 11.7 -14.4 [facility] AustinPlatelet Bswsh2267-81-04 06:14:00* Test Item Value Reference Range Interpretation Comments Platelet Count (test code = 777-3) 252 140-360 [facility] AustinNeutrophils (%) (Auto)2018-09-06 06:14:00 * Test Item Value Reference Range Interpretation Comments Neutrophils (%) (Auto) (test code = 45659-9) 79.1 38.7-80.0 [facility] AustinLymphocytes (%) (Auto)2018-09-06 06:14:00 * Test Item Value Reference Range Interpretation Comments Lymphocytes (%) (Auto) (test code = 736-9) 9.9 18.0-39.1 L [facility] AustinMonocytes (%) (Auto)2018-09-06 06:14:00* Test Item Value Reference Range Interpretation Comments Monocytes (%) (Auto) (test code = 5905-5) 7.4 4.4-11.3 [facility] AustinEosinophils (%) (Auto)2018-09-06 06:14:00 * Test Item Value Reference Range Interpretation Comments Eosinophils (%) (Auto) (test code = 713-8) 2.1 0.0-6.0 [facility] AustinBasophils (%) (Auto)2018-09-06 06:14:00* Test Item Value Reference Range Interpretation Comments Basophils (%) (Auto) (test code = 706-2) 0.5 0.0-1.0 [facility] AustinIM GRANULOCYTES %2018-09-06 06:14:00* Test Item Value Reference Range Interpretation Comments IM GRANULOCYTES % (test code = IM GRANULOCYTES %) 1.0 0.0- 1.0 [facility] AustinNeutrophils # (Auto)2018-09-06 06:14:00* Test Item Value Reference Range Interpretation Comments Neutrophils # (Auto) (test code = 751-8) 8.8 2.1-6.9 H [facility] AustinLymphocytes # (Auto)2018-09-06 06:14:00* Test Item Value Reference Range Interpretation Comments Lymphocytes # (Auto) (test code = 08236-2) 1.1 1.0-3.2 [facility] AustinMonocytes # (Auto)2018-09-06 06:14:00* Test Item Value Reference Range Interpretation Comments Monocytes # (Auto) (test code = 742-7) 0.8 0.2-0.8 [facility] AustinEosinophils # (Auto)2018-09-06 06:14:00* Test Item Value Reference Range Interpretation Comments Eosinophils # (Auto) (test code = 711-2) 0.2 0.0-0.4 [facility] AustinBasophils # (Auto)2018-09-06 06:14:00* Test Item Value Reference Range Interpretation Comments Basophils # (Auto) (test code = 704-7) 0.1 0.0-0.1 [facility] AustinAbsolute Immature Granulocyte (auto 2018-09-06 06:14:00* Test Item Value Reference Range Interpretation Comments Absolute Immature Granulocyte (auto (judie t code = Absolute Immature Granulocyte (auto) 0.11 0-0.1 H [facility] AustinUrine OOT8772-04-35 19:52:00* Test Item Value Reference Range Interpretation Comments Urine WBC (test code = 5821-4) 6-10 0-5 H [facility] AustinUrine [id number] 19:52:00* Test Item Value Reference Range Interpretation Comments Urine RBC (test code = 39007-3) 0-5 0-5 [facility] AustinUrine Vwlfipyf5317-88-50 19:52:00* Test Item Value Reference Range Interpretation Comments Urine Bacteria (test code = 92868-1) MANY NONE H [facility] AustinUrine Epithelial Uesgi6016-10-89 19:52:00 * Test Item Value Reference Range Interpretation Comments Urine Epithelial Cells (test code = 54325-3) MODERATE NONE [facility] AustinUrine Amorphous Cfwwcexe9507-50-88 19:52:00* Test Item Value Reference Range Interpretation Comments Urine Amorphous Sediment (test code = 8246-1) FEW FEW [facility] AustinUrine Fine Granular Sdbxx7308-51-70 19:52:00* Test Item Value Reference Range Interpretation Comments Urine Fine Granular Casts (test code = 10248-3) 1-5 >0 H [facility] AustinUrine Coarse Granular Zibqr5173-54-59 19:52:00* Test Item Value Reference Range Interpretation Comments Urine Coarse Granular Casts (test code = 92253-8) 1-5 >0 H [facility] AustinUrine Tavcm6953-89-35 19:42:00* Test Item Value Reference Range Interpretation Comments Urine Color (test code = 5778-6) YELLOW YELLOW [facility] AustinUrine Xfstoej9818-56-42 19:42:00* Test Item Value Reference Range Interpretation Comments Urine Clarity (test code = 60079-2) SL CLOUDY CLEAR H [facility] AustinUrine Specific Adtvjns3991-92-68 19:42:00 * Test Item Value Reference Range Interpretation Comments Urine Specific [place] (test code = 5811-5) 1.030 1.010-1.02 5 H [facility] AustinUrine hR7709-01-94 19:42:00* Test Item Value Reference Range Interpretation Comments Urine pH (test code = 00381-9) 5 5-7 [facility] AustinUrine Leukocyte Yttyohyt3751-64-53 19:42:00* Test Item Value Reference Range Interpretation Comments Urine Leukocyte Esterase (test code = 5799-2) NEGATIVE NEGATIVE [facility] AustinUrine Sftfpxg8017-72-71 19:42:00* Test Item Value Reference Range Interpretation Comments Urine Nitrite (test code = 72870-7) NEGATIVE NEGATIVE [facility] AustinUrine Sjzrtas5373-25-36 19:42:00* Test Item Value Reference Range Interpretation Comments Urine Protein (test code = 5804-0) 2+ NEGATIVE H [facility] AustinUrine Glucose (UA)2018-09-05 19:42:00* Test Item Value Reference Range Interpretation Comments Urine Glucose (UA) (test code = 2349-9) 2+ NEGATIVE H [facility] AustinUrine Zrurmgs1988-23-11 19:42:00* Test Item Value Reference Range Interpretation Comments Urine Ketones (test code = 89220-2) NEGATIVE NEGATIVE [facility] AustinUrine Ncnxsuqydwje4705-14-87 19:42:00* Test Item Value Reference Range Interpretation Comments Urine Urobilinogen (test code = 91420-2) 1 0.2-1 [facility] AustinUrine Kfuvibhpt3548-95-61 19:42:00* Test Item Value Reference Range Interpretation Comments Urine Bilirubin (test code = 1978-6) NEGATIVE NEGATIVE [facility] AustinUrine Jqlyy0972-42-81 19:42:00* Test Item Value Reference Range Interpretation Comments Urine Blood (test code = 92490-5) 1+ NEGATIVE H [facility] AustinLactic Acid Ayohq1509-42-56 19:07:00* Test Item Value Reference Range Interpretation Comments Lactic Acid Level (test code = Lactic Acid Level) 11.5 4.5- 19.8 [facility]
== END 2020-01-24 14:52 | disposition home or self-care (01) | DRG 270 ==
LOC: CATH LAB 09:32 → PACU V 12:20 → ICU 14:55 → MED/SURG 01-22 22:13
PROVIDERS: ADMIT Internal Medicine Cardiovascular Disease; ATTEND Internal Medicine Cardiovascular Disease
PROC: 027034Z Dilation of Coronary Artery, One Artery with Drug-eluting Intraluminal Device, Percutaneous Approach (ICD-10-PCS; principal; 2020-01-20)
PROC: 5A02210 Assistance with Cardiac Output using Balloon Pump, Continuous (ICD-10-PCS; 2020-01-20)
PROC: 047H3Z1 Dilation of Right External Iliac Artery using Drug-Coated Balloon, Percutaneous Approach (ICD-10-PCS; 2020-01-20)
PROC: 4A023N7 Measurement of Cardiac Sampling and Pressure, Left Heart, Percutaneous Approach (ICD-10-PCS; 2020-01-20)
PROC: B2111ZZ Fluoroscopy of Multiple Coronary Arteries using Low Osmolar Contrast (ICD-10-PCS; 2020-01-20)
PROC: B2151ZZ Fluoroscopy of Left Heart using Low Osmolar Contrast (ICD-10-PCS; 2020-01-20)
PROC: 5A1223Z Performance of Cardiac Pacing, Continuous (ICD-10-PCS; 2020-01-20)
PROC: B4101ZZ Fluoroscopy of Abdominal Aorta using Low Osmolar Contrast (ICD-10-PCS; 2020-01-20)
DX: I13.0 Hypertensive heart and chronic kidney disease with heart failure and stage 1 through stage 4 chronic kidney disease, or unspecified chronic kidney disease (principal); R57.0 Cardiogenic shock; I50.23 Acute on chronic systolic (congestive) heart failure; I44.2 Atrioventricular block, complete; E11.22 Type 2 diabetes mellitus with diabetic chronic kidney disease; N18.3 Chronic kidney disease, stage 3 (moderate); E78.5 Hyperlipidemia, unspecified; Z82.49 Family history of ischemic heart disease and other diseases of the circulatory system; Z87.891 Personal history of nicotine dependence; E66.01 Morbid (severe) obesity due to excess calories; Z86.73 Personal history of transient ischemic attack (TIA), and cerebral infarction without residual deficits; I73.9 Peripheral vascular disease, unspecified; Z86.718 Personal history of other venous thrombosis and embolism; Z86.711 Personal history of pulmonary embolism; Z11.59 Encounter for screening for other viral diseases; I25.10 Atherosclerotic heart disease of native coronary artery without angina pectoris; J44.9 Chronic obstructive pulmonary disease, unspecified; Z68.34 Body mass index [BMI] 34.0-34.9, adult; Z79.4 Long term (current) use of insulin
CPT/HCPCS: 33210; 33970; 36415; 37224; 80048; 80053; 80061; 82948; 83735; 84132; 85025; 85610; 85730; 92928; 93005; 93458; 99152; 99153; C1725; C1753; C1766; C1769; C1887; C2630; J0153; J1327; J1644; J1940; J2001; J2250; J2270; J2405; J3010; J7030; J7050; Q9967; U0002

== ENCOUNTER → 2020-04-20 | Day surgery (SDC) | payer OTHER ==
[2020-04-15 09:47] LABS: BASOPHILS % 0.6 % (0.0-1.0); EOSINOPHILS # (AUTO) 0.2 (0.0-0.4); EOSINOPHILS % 2.9 % (0.0-6.0); HEMATOCRIT 53.7 % (38.2-49.6); HEMOGLOBIN 16.9 g/dL (14.0-18.0); LYMPHOCYTES # (AUTO) 0.9 (1.0-3.2); LYMPHOCYTES % 13.9 % (18.0-39.1); MEAN CORPUSCULAR HEMOGLOBIN 27.6 pg (28-32); MEAN CORPUSCULAR HGB CONC 31.5 g/dL (31-35); MEAN CORPUSCULAR VOLUME 87.6 fL (81-99); MONOCYTES # (AUTO) 0.4 (0.2-0.8); MONOCYTES % 6.6 % (4.4-11.3); NEUTROPHILS % 75.5 % (38.7-80.0); PLATELET COUNT 198 x10e3/uL (140-360); RED BLOOD COUNT 6.13 x10e6/uL (4.3-5.7); RED CELL DISTRIBUTION WIDTH 15.7 % (11.7-14.4)
[2020-04-15 10:05] LABS: ANION GAP 12.9 mmol/L (8-16); CALCIUM 8.4 mg/dL (8.4-10.2); CREATININE, SERUM 2.17 mg/dL (0.72-1.25); POTASSIUM 4.9 mmol/L (3.5-5.1)
[2020-04-15 10:24] LABS: INR 0.86; PROTHROMBIN TIME 12.2 seconds (11.9-14.5)
[~2020-04-20] VITALS: Ht 180.3 cm; Wt 111.1 kg
[~2020-04-20] MED LIST changes: +CARVEDILOL3.125 MG PO; +FENTANYL CITRATE/PF 100MCG/2 ML INJ ONE; +LASIX20 MG PO; +LIDOCAINE HCL 2% LOCAL 20 ML VIAL ONE; +LOVASTATIN40 MG PO; +METOPROLOL SUCC25 MG PO; +MIDAZOLAM HCL 2 MG/2 ML VIAL ONE; +SODIUM CHLORIDE 0.9% 1000ML 2,000 ML ONE; +SODIUM CHLORIDE 0.9% 500ML 500 ML ONE; +TRESIBA100 UNIT/1 SC; +VANCOMYCIN 1GM/NS 250 ML 500 ML ONE
[2020-04-20 11:15] VITALS: BP 138/80
--- NOTE | 2020-04-20 11:15 | NUR ---
1115pm PREP NOTE PROCEDURAL/Implanr Bivad Dr Bey for Cardiomyopathy .................................................................................. pt in #10, prepped for procedure. Alert oriented and appropriate, PERRLA, respirations even and unlabored to room air. Pulses x4 extremities equal and faint. Pedal pulses PT/DP weak to nonexistent to left foot left foot Pt 1+Doppler and discolored and ccol and marked.Rt PT/DT PP1+/1+ Cap fill brisk < 3 sec. Skin warm and dry integrity appears intact in general. IV started Dustin Kelly One attempt #20 lef forearm. left hand no success by ds/rn and both presents healthy w/o s/s of infiltration or complaint. Abdomen soft and supple. pt offered toileting, denies need to urinate or defecate. Personal affects with patient. Family at bedside. Pt and family verbalizes understanding of POC. at bedside.Prepped and ready indu/rn
--- NOTE | 2020-04-20 11:30 | NUR ---
1130 BS 138 checked by Dustin DALY ds/rn
[2020-04-20 15:44] VITALS: BP 144/80
--- NOTE | 2020-04-20 15:44 | NUR ---
1544 pm RECEIVING NOTE [employer] DEPT............................................................... Bedside report received from Dustin DALY. Identifierx2. Alert oriented and appropriate, PERRLA, respirations even and unlabored to room air. Pulses x4 extremities equal and strong. Pedal pulses PT/DPx2 palpable to left rt foot remains discolored and decreased pulse doppler Rt Dp non existent and marked. Cap fill brisk < 3 sec. chest pressure in place.Shoulder sling in place.Discharge teaching done.No gross issues pain,pallor,pressure or dysrhythmia. Skin warm and dry integrity appears D/I IV 20g to left forearm presents healthy w/o s/s of infiltration or complaint. Abdomen soft and supple. pt offered toileting, denies need to urinate or defecate. No personal affects with patient. Family at BS Pt and family verbalizes understanding of POC. Currently w/o complaint of pain or need.ds/rn
[2020-04-20 16:15] VITALS: BP 140/77
--- NOTE | 2020-04-20 16:25 | Diagnostic Imaging Report ---
TECHNIQUE: Frontal view of the chest. INDICATION: ^s/p BIV defribrilator implant ^skilled labor room 10 COMPARISON: 09/02/2019 IMPRESSION: Lines and hardware: Interval placement of a left chest cardiac device. Heart and mediastinum: Stable. Lungs and pleura: Pulmonary vascular congestion. No focal airspace consolidation. No pleural effusion. No pneumothorax. Soft tissues and bones: No acute abnormality. Signed by: Antonio Peñaloza MD on 04/20/2020 4:22 PM
[2020-04-20 16:30] VITALS: BP 145/77
--- NOTE | 2020-04-20 16:30 | NUR ---
2460p Teaching completed by [facility] Team for pacer appliance. Stat CXR done. Assisted with po intake and void qs. Back to baseline orientation Remains in paced rhythm.ds/rn
[2020-04-20 17:30] VITALS: BP 156/77
--- NOTE | 2020-04-20 17:45 | NUR ---
[address] Dr[address] Bey was notified of CXR results.ok to continue with DC. No gross issues pain pallor pressure or dysrhythmia. ds/rn
[2020-04-20 18:00] VITALS: BP 144/72
--- NOTE | 2020-04-20 18:00 | NUR ---
1800pm TWIST[employer] RECOVERY DISCHARGE NURSING NOTE Pt meets DC criteria. Left chest pressure dressing intact with arm sling on.( Bivad device ) assessed for s/s of complication and presence of hematoma. Skin warm, dry, no discolor, and pulses present. IV removed from left forearm. Distal tip appears intact. VS WNL. Pt denies pain, sob, or need at this time. Family at bedside. Review of discharge paperwork and follow up instructions. verbalized understanding. Pt to wheelchair and transported to front of hospital. Transferred to private vehicle under own strength w/o incident with DC paperwork in hand. -ds/rn
--- NOTE | 2020-04-20 23:23 | Operative Report ---
DATE OF PROCEDURE: 04/20/2020 SURGEON: aJck Reyez MD PREPROCEDURE DIAGNOSES: 1. 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 2. Congestive heart failure class 3. 3. History of myocardial infarction. 4. Right bundle branch block. POSTPROCEDURE DIAGNOSES: 1. 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 2. Congestive heart failure class 3. 3. History of myocardial infarction. 4. Right bundle branch block. ESTIMATED BLOOD LOSS: 10 mL. COMPLICATIONS: None. PROCEDURES PERFORMED: 1. Biventricular cardiac defibrillator placement. 2. Moderate sedation. Moderate conscious sedation was provided under my direct supervision by sedation trained nurse. Sedation approximate time, 45 minutes, Versed and fentanyl. There were no complications. See sedation form for details. DESCRIPTION OF PROCEDURE: After informed consent was obtained, the patient was brought to the electrophysiology laboratory in a fasting and nonsedated state. Area over his chest was prepped and draped in the usual sterile fashion. Moderate sedation and prophylactic antibiotics were given. 1% lidocaine was used as local anesthetic and a 3 cm skin incision was made in the left subclavicular area. Electrocautery sharp and blunt dissection were used to bridge the muscular fascia and a pocket was created for event implantation of the device. Vascular access was obtained x3 in the left axillary vein using modified Seldinger technique under fluoroscopic guidance. Three sheaths were placed. Ventricular lead advanced to the RV apex. R-wave 11, pacing 0.4. The coronary sinus was cannulated using AL2 catheter and successfully advance the wire to a branch without injecting contrast. The lead was advanced there, with the patient's threshold 1. No phrenic nerve stimulation. Then atrial lead to the right atrial appendage, P-wave 5, pacing 0.4. Sheaths were removed from the body. Leads were secured to fascia using Ethibond. Pocket was irrigated with antibiotic solution using the pulse director of enterprise applications. Hemostasis was meticulous. Leads connected to the device and entire ICD system placed in the pocket. Incision was closed using absorbable sutures and Dermabond. The patient tolerated the procedure well. Procedure was incomplete. SUMMARY OF HARDWARE IMPLANTED: 1. The new defibrillator is Bycler, serial #[id number]. 2. RA lead, [employer] [id number]. 3. RV lead, [employer] [id number]. 4. LV lead, [employer] [id number]. IMPRESSION: Successful biventricular cardiac defibrillator placement via left axillary vein. PLAN: 1. Routine postop monitoring on telemetry bed. 2. Chest x-ray. 3. Follow up in 2 weeks. MD BERNADINE Junior/KALPESH /[id number]
== END | disposition home or self-care (01) ==
LOC: CATH LAB 10:43
PROVIDERS: ATTEND Internal Medicine
DX: I42.0 Dilated cardiomyopathy (principal); I25.2 Old myocardial infarction; I45.10 Unspecified right bundle-branch block; Z11.59 Encounter for screening for other viral diseases; Z01.812 Encounter for preprocedural laboratory examination
CPT/HCPCS: 33225; 33249; 36415 ×2; 71045; 80048; 82948; 85025; 85610; C1769 ×2; C1777; C1882; C1887; C1898; C1900; J2001; J2250; J3010; J3370; J7030; J7040; U0002; 99152; 99153